=== PATIENT | female | born 1965 | race Caucasian/White ===

== ENCOUNTER 2017-02-24 14:16 | Inpatient (IN) ==
[2017-02-24] MEDS ORDERED: *HR* FentaNYL (PF) 100 MCG/2 ML VIAL IVP ONE (14:43)
[2017-02-24] MEDS ORDERED: Ondansetron 4 MG/2 ML VIAL IVP ONE (14:43)
[2017-02-24] MEDS ORDERED: 0.9 % Sodium Chloride 1,000 ML IVC ONE ×2 (14:43→17:16)
[2017-02-24 15:06] LABS: Basophils % 0.3 %; Eosinophils % 0.2 %; Hematocrit 48.4 % (35.3-44.9); Hemoglobin 16.8 g/dL (11.5-15.4); Immature Granulocytes % 0.2 % (0-4); Lymphocytes # 0.9 K/mcL (0.6-4.6); Mean Corpuscular HGB Conc 34.7 g/dL (31.6-35.5); Mean Corpuscular Hemoglobin 29.5 pg (28.0-33.3); Mean Corpuscular Volume 85.1 fL (83.0-100.0); Mean Platelet Volume 9.3 fL (9.4-12.4); Monocytes # 0.6 K/mcL (0.0-1.3); Monocytes % 10.2 %; Neutrophils # 4.6 K/mcL (1.6-8.9); Platelet Count 340 K/mcL (140-400); Red Blood Count 5.69 M/mcL (3.82-4.97); Red Cell Distribution Width 13.1 % (11.5-14.5); Segmented Neutrophils % 74.1 %
[2017-02-24 15:06] LABS: Bilirubin,Urine Small (Negative); Blood,Urine Negative (Negative); Clarity,Urine Cloudy (Clear); Color,Urine Dark Yellow (Yellow); Glucose,Urine (UA) Normal (Normal); Ketones,Urine 15 mg/dL (Negative); Leukocyte Esterase,Urine Negative (Negative); Nitrite,Urine Negative (Negative); PH,Urine 5.5 pH Units (5.0-8.0); Protein,Urine 30 mg/dL (Neg-Trace); Specific Gravity,Urine 1.024 (1.010-1.025); Urobilinogen,Urine Normal (Normal)
[2017-02-24 15:08] LABS: Bacteria,Urine None Seen per hpf (None-Few); Hyaline Casts,Urine None Seen per lpf (None-Few); Squamous Epithelial Cell,Urine Many per lpf (None-Few); WBC,Urine 0-3 per hpf (0-3)
[2017-02-24 15:19] LABS: Alanine Aminotransferase 6 Units/L (0-55); Albumin 4.3 g/dL (3.5-5.0); Alkaline Phosphatase 86 Units/L (38-126); Aspartate Amino Transferase 13 Units/L (5-34); BUN/Creatinine Ratio 13 (6-26); Bilirubin,Total 1.3 mg/dL (0.2-1.2); Blood Urea Nitrogen 11 mg/dL (7-20); Calcium 10.5 mg/dL (8.6-10.8); Carbon Dioxide 31 mEq/L (19-29); Chloride 93 mEq/L (98-109); Globulin 4.1 g/dL (2.4-3.5); Glucose 117 mg/dL (70-99); Lipase 7 Units/L (8-78); Osmolality,Calculated 286 (280-300); Potassium 3.7 mEq/L (3.5-4.5); Sodium 138 mEq/L (136-145); Total Protein 8.4 g/dL (6.0-8.3); eGFR For African Americans > 60 (> 60); eGFR For Non-African Americans > 60 (> 60)
[2017-02-24 15:32] LABS: Bilirubin,Direct 0.5 mg/dL (0.0-0.5); Bilirubin,Indirect 0.8 mg/dL (0.0-1.2)
--- NOTE | 2017-02-24 16:44 | Emergency Department Note ---
Disposition Clinical Impression: Small bowel obstruction Abdominal pain Qualifiers: Abdominal location: generalized Qualified Code(s): R10.84 - Generalized abdominal pain Disposition: Admitted As Inpatient Condition: Good Time of Disposition: 17:26 Abdominal Pain HPI - General Chief Complaint: ED Abdominal Pain Stated Complaint: Abd Pain N/V Time Seen by Provider: 02/24/17 14:29 Source: patient Mode of arrival: ambulatory Limitations: no limitations Nursing Notes Reviewed: Yes Vital Signs Reviewed: Yes - History of Present Illness HPI Narrative: Patient presents emergency room for repeat evaluation of abdominal pain. She was here 2 days ago and evaluated with CT scan and labs. I Have an Infectious Process in Her Abdomen and Requested to Go Home. Patient Was Offered Admission at That Time but Did Not Want to Stay. Medical Management Was Initiated That Point. Patient Returns Today His Pain Has Been Progressively Getting Worse and Now She Is Having Worsening Nausea and Vomiting. Denied Any Fevers Chills Chest Shows Breath Headache or Vision Change. Pt Subjective Complaint: abdominal pain Onset (ago): day(s) Consistency: constant Location: diffuse Pain Severity: moderate Pain Scale: 4 Quality: cramping, aching Radiation: none Migration to: no migration Improves with: nothing Worsens with: eating, vomiting, movement Associated symptoms: Reports: nausea, vomiting - Related Data Home Medications Medication Instructions Recorded Confirmed Albuterol Sulfate [Ventolin Hfa] 2 puff IH Q4-6H PRN 02/24/17 02/24/17 Alendronate Sodium [Fosamax] 70 mg PO QWEEK 02/24/17 02/24/17 Budesonide/Formoterol 160/4.5 1 puff IH BID 02/24/17 02/24/17 [Symbicort 160/4.5] Calc/D3/Mag/Zn/Shwetha/[place] 1 each PO DAILY 02/24/17 02/24/17 [Calcium 600 mg Plus Vit D Tab] Citalopram Hydrobromide 20 mg PO DAILY 02/24/17 02/24/17 [Citalopram HBr] ClonazePAM [Klonopin] 0.5 mg PO BID 02/24/17 02/24/17 Duloxetine HCl [Cymbalta] 60 mg PO QAM 02/24/17 02/24/17 FLUoxetine HCl [Prozac] 40 mg PO QAM 02/24/17 02/24/17 HydrOXYzine Pamoate [Vistaril] 50 mg PO TID PRN 02/24/17 02/24/17 Tiotropium [Spiriva] 18 mcg IH 0700 02/24/17 02/24/17 Trazodone HCl 50 - 100 mg PO HS 02/24/17 02/24/17 Previous Rx's Medication Instructions Recorded HYDROcodone/Acet 5/325 mg [[place] 1 tab PO Q4H PRN #10 tab 02/22/17 5-325 mg] Ondansetron ODT [Zofran ODT] 4 mg SL Q6HR #20 tab.rapdis 02/22/17 Allergies Allergy/AdvReac Type Severity Reaction Status Date / Time codeine Allergy Rash Verified 02/24/17 14:22 Penicillins Allergy Rash Verified 02/24/17 14:22 tramadol [From Ultram] AdvReac See Verified 02/24/17 14:22 Comments All systems ED: reviewed and negative except as stated. Constitutional: Denies: fever, chills Cardiovascular: Denies: chest pain, palpitations, dyspnea on exertion Respiratory: Denies: dyspnea, wheezes, hemoptysis Gastrointestinal: Reports: abdominal pain, nausea, vomiting. Denies: diarrhea, constipation Genitourinary: Denies: dysuria, frequency Musculoskeletal: Denies: back pain, neck pain Abdominal Pain PMH - Past Medical History Medical history: Reports: no medical history, COPD, osteoporosis Female Surgical History: Reports: Psychiatric history: Reports: anxiety, depression - Social History Smoking status: Current every day smoker Alcohol use: Reports: none Drug use: Reports: none Physical Exam - General Limitations: no limitations General appearance: alert, in no apparent distress - Chest Chest inspection: Present: normal inspection, symmetric chest wall rise - Respiratory Respiratory exam: Present: normal lung sounds bilaterally - Cardiovascular Cardiovascular exam: Present: regular rate, normal rhythm, normal heart sounds - Abdominal Exam Abdominal exam: Present: soft, tenderness (Patient has diffuse abdominal discomfort. No guarding no rigidity no peritoneal symptoms at this time. Bowel sounds are diminished), normal bowel sounds. Absent: Non-Tender, distention, guarding, rebound, rigidity, Wang's sign, Rovsing's sign, tenderness at McBurney's Point - Extremities Exam Extremities exam: Present: normal inspection, full ROM, normal capillary refill - Back Exam Back exam: Present: normal inspection, full ROM. Absent: tenderness - Neurological Exam Neurological exam: Present: alert, oriented X3, CN II-XII intact, normal gait - Psychiatric Psychiatric exam: Present: normal affect, normal mood - Skin Skin exam: Present: warm, dry, intact, normal color Course Course Narrative: Patient seen and examined the time of arrival. See history of present illness. 51-year-old female presents 2 days after being evaluated here in the emergency room and told that she has enteritis in the distal colon as well as ileus. Patient requested to go home that day. She is advised that she could decompensate. Patient found today to have progressively worsening abdominal pain with emesis. Patient's abdomen is not rigid no peritoneal symptoms no guarding no rigidity. She has bowel sounds present but diminished. She has diffuse tenderness across the entire abdominal wall. Lungs are clear heart is regular. Patient is concerning for progression into the small bowel instruction. Plain KUB and basic laboratory workup all fluids and nausea medication pain control lactic acid order this time. Patient will have symptoms controlled next packed admitted for definitive management. IV Zosyn ordered at this time for antibiotic regimen secondary to intra-abdominal pathology. One-time dose to be given here in the ED. Disposition pending imaging treatment course. - Reevaluation(s) Reevaluation #1: Patient seen and examined the time of arrival. See history of present illness. 51-year-old female presents to the emergency room for second evaluation of abdominal pain. She is here [address] imaging and labs performed. That workup at that time was concerning for significant enterocolitis of the distal colon as well as possible ileus patient has had persistent nausea vomiting and dark colored emesis at this time. The pain has gotten worse. Physical exam is benign. Abdomen is diffusely tender but no guarding no rigidity bowel sounds are diminished. Lungs are clear heart is regular. Patient is concerning for progression into small bowel obstruction. Patient have repeat labs and KUB were ordered initially. Pain medication given. Patient is stable. We will continue to monitor lactic acid and LFTs also order this time. Disposition pending treatment course and evaluation. Patient found to have small bowel infection based on repeat imaging and CT scan. The dilation of the abdomen is persistently worsening. NG tube ordered protonic. Nothing by mouth status established. Patient will be admitted to the hospitalist at this time for definitive management of small bowel obstruction detailed review and consultation was placed to the hospitalist. Dr. gentile and I reviewed the case in detail. He had no other recommendations at this time. Cipro Flagyl be added on for prophylactic antibiotic regimen. Patient is resting comfortable. Disposition admission to hospital this point. Time: 17:25 Vital Signs Temperature 98.1 F 02/24/17 14:22 Pulse Rate 123 02/24/17 14:22 Respiratory Rate 15 02/24/17 14:22 Blood Pressure 111/81 02/24/17 14:22 O2 Sat by Pulse Oximetry 96 02/24/17 14:22 Temperature 98.1 F 02/24/17 14:22 Pulse Rate 85 02/24/17 17:30 Respiratory Rate 16 02/24/17 17:58 Blood Pressure 135/88 02/24/17 17:58 O2 Sat by Pulse Oximetry 97 02/24/17 17:30 Oxygen Delivery Oxygen Delivery Room Air Abdominal Pain - MDM Narrative Medical decision making narrative: sMall bowel obstruction, abdominal pain - Medical Records Medical records reviewed: Yes I reviewed the patient's medical records. - Lab Data Lab results reviewed: Yes I reviewed the patient's lab results. Result diagrams: 02/24/17 14:54 02/24/17 14:54 Lab Results 02/24/17 02/24/17 02/24/17 Range/Units 14:45 14:54 14:54 WBC 6.2 (4.3-11.1) K/mcL RBC 5.69 H (3.82-4.97) M/mcL Hgb 16.8 H (11.5-15.4) g/dL Hct 48.4 H (35.3-44.9) % MCV 85.1 (83.0-100.0) fL MCH 29.5 (28.0-33.3) pg MCHC 34.7 (31.6-35.5) g/dL RDW 13.1 (11.5-14.5) % Plt Count 340 (140-400) K/mcL MPV 9.3 L (9.4-12.4) fL Immature Gran % 0.2 (0-4) % Seg Neutrophils % 74.1 % Lymphocytes % 15.0 % Monocytes % 10.2 % Eosinophils % 0.2 % Basophils % 0.3 % Neutrophils # 4.6 (1.6-8.9) K/mcL Lymphocytes # 0.9 (0.6-4.6) K/mcL Monocytes # 0.6 (0.0-1.3) K/mcL Eosinophils # 0.0 (0.0-0.6) K/mcL Basophils # 0.0 (0.0-0.2) K/mcL Sodium 138 (136-145) mEq/L Potassium 3.7 (3.5-4.5) mEq/L Chloride 93 L (98-109) mEq/L Carbon Dioxide 31 H (19-29) mEq/L BUN 11 (7-20) mg/dL Creatinine 0.87 (0.57-1.11) mg/dL Est GFR ( Amer) > 60 (> 60) Est GFR (Non-Af Amer) > 60 (> 60) BUN/Creatinine Ratio 13 (6-26) Glucose 117 H (70-99) mg/dL Calculated Osmolality 286 (280-300) Lactic Acid (0.5-2.2) mmol/L Calcium 10.5 (8.6-10.8) mg/dL Total Bilirubin 1.3 H (0.2-1.2) mg/dL Direct Bilirubin 0.5 (0.0-0.5) mg/dL Indirect Bilirubin 0.8 (0.0-1.2) mg/dL AST 13 (5-34) Units/L ALT 6 (0-55) Units/L Alkaline Phosphatase 86 (38-126) Units/L Serum Total Protein 8.4 H (6.0-8.3) g/dL Albumin 4.3 (3.5-5.0) g/dL Globulin 4.1 H (2.4-3.5) g/dL Albumin/Globulin Ratio 1.0 L (1.1-2.2) Lipase 7 L (8-78) Units/L Urine Color Dark Yellow (Yellow) Urine Clarity Cloudy A (Clear) Urine pH 5.5 (5.0-8.0) pH Units Ur Specific [place] 1.024 (1.010-1.025) Urine Protein 30 H (Neg-Trace) mg/dL Urine Glucose (UA) Normal (Normal) mg/dL Urine Ketones 15 H (Negative) mg/dL Urine Blood Negative (Negative) Urine Nitrite Negative (Negative) Urine Bilirubin Small H (Negative) Urine Urobilinogen Normal (Normal) mg/dL Ur Leukocyte Esterase Negative (Negative) Urine Microscopic RBC 3-5 H (0-3) per hpf Urine Microscopic WBC 0-3 (0-3) per hpf Ur Squamous Epith Cells Many H (None-Few) per lpf Urine Bacteria None Seen (None-Few) per hpf Hyaline Casts None Seen (None-Few) per lpf Ur Culture Indicated? NO (NO) 02/24/17 Range/Units 15:48 WBC (4.3-11.1) K/mcL RBC (3.82-4.97) M/mcL Hgb (11.5-15.4) g/dL Hct (35.3-44.9) % MCV (83.0-100.0) fL MCH (28.0-33.3) pg MCHC (31.6-35.5) g/dL RDW (11.5-14.5) % Plt Count (140-400) K/mcL MPV (9.4-12.4) fL Immature Gran % (0-4) % Seg Neutrophils % % Lymphocytes % % Monocytes % % Eosinophils % % Basophils % % Neutrophils # (1.6-8.9) K/mcL Lymphocytes # (0.6-4.6) K/mcL Monocytes # (0.0-1.3) K/mcL Eosinophils # (0.0-0.6) K/mcL Basophils # (0.0-0.2) K/mcL Sodium (136-145) mEq/L Potassium (3.5-4.5) mEq/L Chloride (98-109) mEq/L Carbon Dioxide (19-29) mEq/L BUN (7-20) mg/dL Creatinine (0.57-1.11) mg/dL Est GFR ( Amer) (> 60) Est GFR (Non-Af Amer) (> 60) BUN/Creatinine Ratio (6-26) Glucose (70-99) mg/dL Calculated Osmolality (280-300) Lactic Acid 1.2 (0.5-2.2) mmol/L Calcium (8.6-10.8) mg/dL Total Bilirubin (0.2-1.2) mg/dL Direct Bilirubin (0.0-0.5) mg/dL Indirect Bilirubin (0.0-1.2) mg/dL AST (5-34) Units/L ALT (0-55) Units/L Alkaline Phosphatase (38-126) Units/L Serum Total Protein (6.0-8.3) g/dL Albumin (3.5-5.0) g/dL Globulin (2.4-3.5) g/dL Albumin/Globulin Ratio (1.1-2.2) Lipase (8-78) Units/L Urine Color (Yellow) Urine Clarity (Clear) Urine pH (5.0-8.0) pH Units Ur Specific [place] (1.010-1.025) Urine Protein (Neg-Trace) mg/dL Urine Glucose (UA) (Normal) mg/dL Urine Ketones (Negative) mg/dL Urine Blood (Negative) Urine Nitrite (Negative) Urine Bilirubin (Negative) Urine Urobilinogen (Normal) mg/dL Ur Leukocyte Esterase (Negative) Urine Microscopic RBC (0-3) per hpf Urine Microscopic WBC (0-3) per hpf Ur Squamous Epith Cells (None-Few) per lpf Urine Bacteria (None-Few) per hpf Hyaline Casts (None-Few) per lpf Ur Culture Indicated? (NO) - Radiology Data Radiology results reviewed: Yes I reviewed the patient's radiology results. CT redemonstrates progression of small bowel obstruction Attestation Statement - Attestation Attestation: I examined this patient and my medical decision-making was reviewed with the [employer] ATTENDANT/PA/Advanced Practice Nurse/Resident Physician. I agree with the documented findings, disposition and treatment plan as described except to the extent set forth below. Patient to the emergency department with a chief complaint of abdominal pain and vomiting. Patient was seen Wednesday for the same. Well home and started vomiting more. States it is Brown. No diarrhea. Pain is worsened. On examination she is uncomfortable but in no distress. Diffuse upper abdominal tenderness. Plan. The patient had labs which were unremarkable. KUB showed a nonspecific bowel gas pattern. We were concerned with her symptoms worsening so did order repeat CT scan which now shows a small bowel obstruction. She is admitted to medicine.
[2017-02-24] MEDS ORDERED: Pantoprazole 80 MG in 0.9 % Sodium Chloride 50 ML IVPB ONE (16:50)
[2017-02-24] MEDS ORDERED: MetroNIDAZOLE 500 MG/100 ML 500 MG/100 ML BAG IVPB ONE ×2 (17:27→22:00)
[2017-02-24] MEDS ORDERED: Naloxone 0.4 MG/ML INJ IVP PRN (21:40)
[2017-02-24] MEDS ORDERED: Acetaminophen 325 MG TABLET PO PRN (21:40)
[2017-02-24] MEDS ORDERED: hydrOXYzine pamoate 25 MG CAPSULE PO PRN (21:45)
--- NOTE | 2017-02-24 21:49 | Internal Med History&Physical ---
Date of Encounter: 02/24/17 Time of Encounter: 21:00 Assessment and Plan (1) Small bowel obstruction Current visit: Yes Status: Acute - With worsening abdominal pain, nausea and vomiting requiring hospitalization for advanced evaluation and management. - CT A/P on 02/24 suggests distal small bowel obstruction. - Likely partial SBO given patient just had a normal bowel movement prior to ED visit today. - History of hernia repair by Dr. Bella 3 years ao. - Continue NPO and NG tube with suction. - Patient had received one dose of IV clindamycin and metronidazole. Given no sign of infection such as leukocytosis or fever, will discontinue for now. - Surgery consulted and the case had been discussed with Dr. Dugan. Appreciate surgery evaluation and recommendations. - Continue to monitor. (2) Abdominal pain Current visit: Yes Status: Acute - Diffuse intermittent sharp abdominal pain. - Most likely secondary to current small bowel obstruction. - Continue NPO and NG tube with suction. - Pain control with prn pain medications. Qualifiers: Abdominal location: generalized Qualified Code(s): R10.84 - Generalized abdominal pain (3) COPD (chronic obstructive pulmonary disease) Current visit: Yes Status: Chronic - Continue Symbicort and bronchodilators prn. Qualifiers: COPD type: unspecified COPD Qualified Code(s): J44.9 - Chronic obstructive pulmonary disease, unspecified (4) Anxiety and depression Current visit: Yes Status: Chronic - Continue home dose psychiatric medications regimen. (5) Tobacco abuse Current visit: Yes Status: Acute - Active smoker with 1-2 packs per day. - Will give nicotine patch during her hospital stay. (6) DVT prophylaxis Current visit: Yes Status: Acute - SQ heparin. Internal Medicine - H&P: HPI Chief complaint: Worsening abdominal pain with nausea/vomiting. Admitted From: Emergency Dept Plans for Post Hospital Care: Home History of present illness: Ms. العراقي is a 51 year old female with PMH of COPD, osteoporosis, anxiety/ depression and history of hernia repair (by Dr. Bella 3 years ago). Patient presented to [facility] ED with worsening abdominal pain with nausea/vomiting. The abdominal pain is acute new onset since 1 pm on 02/22. Patient describes it as intermittent diffuse sharp abdominal pain radiating to back. It's aggravated by moving and alleviated by pain medications but patient is not sure if eating will make it worse since she had poor appetite since. Patient initially presented to [facility] ED on 02/[address] A/P suggests severe enteritis of the distal small bowel at that time. Per ED note, patient was recommended to be admitted but she opted to go home. Patient's abdominal pain continues to get worse and she developed nausea and vomiting with dark-colored emesis. Patient came back to ED today, CT A/P suggests distal small bowel obstruction and NG tube was placed in ED with dark-colored emesis noted on suction. Patient denies fever, chills, chest pain, shortness of breath, dysphagia, diarrhea, hematochezia, melena, hematuria, dysuria. Patient reports having a bowel movement right before coming to ED today and it's loosen and brown which are her baseline. Patient is full code. Past Med Surg Social Fam HX - Past Medical History Medical history: COPD, osteoporosis Psychiatric history: anxiety, depression - Past Surgical History Surgical History: herniorrhaphy - Social History Smoking Status: Current every day smoker Packs per day: 2 packs per day. Smokeless Tobacco Status: No Alcohol use: none Drug use: none Internal Medicine - H&P: Meds HYDROcodone/Acet 5/325 mg [[place] 5-325 mg] 1 tab PO Q4H PRN #10 tab 02/22/17 [Rx ] Ondansetron ODT [Zofran ODT] 4 mg SL Q6HR #20 tab.rapdis 02/22/17 [Rx] Albuterol Sulfate [Ventolin Hfa] 2 puff IH Q4-6H PRN 02/24/17 [History] Alendronate Sodium [Fosamax] 70 mg PO QWEEK 02/24/17 [History] Budesonide/Formoterol 160/4.5 [Symbicort 160/4.5] 1 puff IH BID 02/24/17 [ History] Calc/D3/Mag/Zn/[place]eth[place] [Calcium 600 mg Plus Vit D Tab] 1 each PO DAILY 02/24/17 [History] Citalopram Hydrobromide [Citalopram HBr] 20 mg PO DAILY 02/24/17 [History] ClonazePAM [Klonopin] 0.5 mg PO BID 02/24/17 [History] Duloxetine HCl [Cymbalta] 60 mg PO QAM 02/24/17 [History] FLUoxetine HCl [Prozac] 40 mg PO QAM 02/24/17 [History] HydrOXYzine Pamoate [Vistaril] 50 mg PO TID PRN 02/24/17 [History] Tiotropium [Spiriva] 18 mcg IH 0700 02/24/17 [History] Trazodone HCl 50 - 100 mg PO HS 02/24/17 [History] Allergies codeine Allergy (Verified 02/24/17 14:22) Rash Penicillins Allergy (Verified 02/24/17 14:22) Rash tramadol [From Ultram] Adverse Reaction (Verified 02/24/17 14:22) See Comments All Systems PM: A 10-system review of systems was performed and is negative for pertinent findings except as documented above in the HPI. - Constitutional Constitutional: anorexia, no chills, no fever(s), no weight gain, no weight loss - EENT Eyes: no change in vision Ears: no decreased hearing Nose, mouth and throat: no dysphagia, no odynophagia - Cardiovascular Cardiovascular ROS IM: no chest pain, no diaphoresis, no edema, no lightheadedness, no palpitations, no syncope - Respiratory Respiratory: no cough, no dyspnea, no hemoptysis - Gastrointestinal Gastrointestinal: as per HPI, abdominal pain (Diffuse), loose stools, nausea, vomiting, no diarrhea, no hematochezia, no melena - Genitourinary Genitourinary: no dysuria, no hematuria - Integumentary Integumentary IM: no pruritus, no rash - Neurological Neurological ROS: no focal weakness, no numbness, no tingling - Hematologic/Lymphatic Hematologic/Lymphatic: no easy bleeding, no easy bruising - Constitutional Vitals: Temp Pulse Resp BP Pulse Ox 97.5 F L 95 16 137/81 95 02/24/17 18:58 02/24/17 18:58 02/24/17 18:58 02/24/17 18:58 02/24/17 18:58 General appearance: Present: cooperative, A&O X 3, no acute distress, answers questions appropriately - Head Head exam: Present: atraumatic, normocephalic - Eye Eye exam: Present: EOMI, PERRL, conjuntiva pink, sclera anicteric - Neck Neck exam general surgery: Present: supple, trachea midline. Absent: lymphadenopathy - Respiratory Respiratory exam: Present: decreased breath sounds. Absent: accessory muscle use, rales, rhonchi, wheezes - Cardiovascular Cardiovascular exam: Present: +S1, +S2, tachycardia. Absent: diastolic murmur, gallop, rubs, systolic murmur - GI/Abdominal GI/Abdominal exam: Present: normal bowel sounds, soft, tenderness (Diffuse), no peritoneal signs. Absent: distended - Extremities Exam Extremities exam: Present: warm, radial pulses palpable and symetrical. Absent : calf tenderness, cyanotic, pedal edema - Neurological Exam Neurological exam: Present: CN II-XII intact, oriented X3, no focal deficits. Absent: pronater drift, facial droop, speech deficit - Skin Skin exam: Present: dry, intact, warm Internal Med - H&P Results - Labs CBC & Chem 7: 02/24/17 14:54 02/24/17 14:54 Labs: Short CBC 02/24/17 Range/Units 14:54 WBC 6.2 (4.3-11.1) K/mcL Hgb 16.8 H (11.5-15.4) g/dL Hct 48.4 H (35.3-44.9) % Plt Count 340 (140-400) K/mcL Neutrophils # 4.6 (1.6-8.9) K/mcL BMP 02/24/17 Range/Units 14:54 Sodium 138 (136-145) mEq/L Potassium 3.7 (3.5-4.5) mEq/L Chloride 93 L (98-109) mEq/L Carbon Dioxide 31 H (19-29) mEq/L BUN 11 (7-20) mg/dL Creatinine 0.87 (0.57-1.11) mg/dL Glucose 117 H (70-99) mg/dL Calcium 10.5 (8.6-10.8) mg/dL Liver Function 02/24/17 Range/Units 14:54 Total Bilirubin 1.3 H (0.2-1.2) mg/dL Direct Bilirubin 0.5 (0.0-0.5) mg/dL AST 13 (5-34) Units/L ALT 6 (0-55) Units/L Alkaline Phosphatase 86 (38-126) Units/L Albumin 4.3 (3.5-5.0) g/dL Urine 02/24/17 Range/Units 14:45 Urine Color Dark Yellow (Yellow) Urine Clarity Cloudy A (Clear) Urine pH 5.5 (5.0-8.0) pH Units Ur Specific [place] 1.024 (1.010-1.025) Urine Protein 30 H (Neg-Trace) mg/dL Urine Glucose (UA) Normal (Normal) mg/dL - Impressions Impressions KUB X-Ray 02/24/17 15:03 IMPRESSION: Interstitial infiltrate at the left lung base. No radiographic evidence for obstruction D/ / Yaniv Conde MD / Yaniv Conde MD Interpreting Provider: Yaniv Conde MD Abdomen/Pelvis CT 02/24/17 16:15 IMPRESSION: 1. Grossly dilated small bowel loops seen throughout the abdomen. The colon is decompressed. No normal caliber small bowel loops are definitely seen. Findings suggest a distal small bowel obstruction D/ / 02/24/2017 16:48:44 Shay Parrish MD / rica Interpreting Provider: Shay Parrish MD
[2017-02-24] MEDS: *HR* Morphine 2 MG/ML SYRINGE IVP PRN (22:10)
[2017-02-24] MEDS ORDERED: Ipratropium/Albuterol Neb 3 ML IH PRN (22:45)
[2017-02-24] MEDS: Nicotine 21 MG PATCH.TD24 TD SCH (23:32)
[2017-02-25] MEDS: *HR* Morphine 2 MG/ML SYRINGE IVP PRN ×3 (03:10→20:26)
[2017-02-25] MEDS: Ondansetron 4 MG/2 ML VIAL IVP PRN ×3 (03:10→20:38)
[2017-02-25 04:55] LABS: Basophils % 0.3 %; Eosinophils % 0.3 %; Hematocrit 39.8 % (35.3-44.9); Immature Granulocytes % 0.3 % (0-4); Lymphocytes # 0.7 K/mcL (0.6-4.6); Lymphocytes % 10.5 %; Mean Corpuscular HGB Conc 34.2 g/dL (31.6-35.5); Mean Corpuscular Hemoglobin 29.6 pg (28.0-33.3); Mean Corpuscular Volume 86.5 fL (83.0-100.0); Mean Platelet Volume 9.6 fL (9.4-12.4); Monocytes # 0.9 K/mcL (0.0-1.3); Monocytes % 12.5 %; Neutrophils # 5.3 K/mcL (1.6-8.9); Platelet Count 269 K/mcL (140-400); Red Cell Distribution Width 13.2 % (11.5-14.5); Segmented Neutrophils % 76.1 %
[2017-02-25 05:01] LABS: Hemoglobin 13.6 g/dL (11.5-15.4)
[2017-02-25 05:23] LABS: Albumin 3.5 g/dL (3.5-5.0); Albumin/Globulin Ratio 1.1 (1.1-2.2); Alkaline Phosphatase 68 Units/L (38-126); Aspartate Amino Transferase 11 Units/L (5-34); BUN/Creatinine Ratio 16 (6-26); Bilirubin,Total 0.8 mg/dL (0.2-1.2); Blood Urea Nitrogen 12 mg/dL (7-20); Calcium 9.2 mg/dL (8.6-10.8); Carbon Dioxide 26 mEq/L (19-29); Chloride 100 mEq/L (98-109); Globulin 3.3 g/dL (2.4-3.5); Glucose 105 mg/dL (70-99); Magnesium 2.1 mg/dL (1.6-2.6); Osmolality,Calculated 286 (280-300); Phosphorous 3.4 mg/dL (2.3-4.7); Potassium 3.4 mEq/L (3.5-4.5); Sodium 138 mEq/L (136-145); Total Protein 6.8 g/dL (6.0-8.3); eGFR For African Americans > 60 (> 60); eGFR For Non-African Americans > 60 (> 60)
[2017-02-25 05:30] LABS: Alanine Aminotransferase < 6 Units/L (0-55)
[2017-02-25] MEDS: *HR* Heparin 5,000 UNIT/ML VIAL SQ SCH ×2 (06:27→18:06)
[2017-02-25] MEDS: Pantoprazole 40 MG VIAL IVP SCH (06:27)
[2017-02-25 06:35] LABS: Platelet Estimate Normal (Normal)
[2017-02-25] MEDS: Budesonide/Formoterol 160/4.5 MDI IH SCH ×2 (08:02→22:18)
[2017-02-25] MEDS: FLUoxetine 20 MG CAPSULE PO SCH (08:41)
[2017-02-25] MEDS: D5% in 0.45% NACL 1,000 ML IVC SCH ×2 (08:58→22:22)
[2017-02-25] MEDS: Nicotine 21 MG PATCH.TD24 TD SCH (08:59)
[2017-02-25] MEDS ORDERED: Potassium Chloride 20 MEQ, Lidocaine 1% 2 ML in D5% in Water 250 ML IVPB ONE (09:03)
--- NOTE | 2017-02-25 11:54 | Internal Med Progress Note ---
Date of Encounter: 02/25/17 Time of Encounter: 11:45 - Assessment and plan (1) Small bowel obstruction Current Visit: Yes Status: Acute Assessment and plan: Patient presented with persistent vomiting and abdominal pain. CT abdomen shows partial distal small bowel obstruction. Continue conservative medical management with nasogastric tube to low intermittent wall suction and IV hydration. Keep nothing by mouth for now. Pain control with when necessary IV morphine. Supportive care. Surgery consult appreciated. (2) Tobacco abuse Current Visit: Yes Status: Chronic Assessment and plan: Continue nicotine transdermal patch. (3) COPD (chronic obstructive pulmonary disease) Current Visit: Yes Status: Chronic Assessment and plan: Not noted to be in acute exacerbation. Continue when necessary bronchodilators and supplemental oxygen. Qualifiers: COPD type: unspecified COPD Qualified Code(s): J44.9 - Chronic obstructive pulmonary disease, unspecified (4) Anxiety and depression Current Visit: Yes Status: Chronic - Subjective Interval history: Improved abdominal pain; resolved vomiting since receiving NG tube; no dyspnea, palpitations; last bowel movement yesterday; - Constitutional Vitals: Temp Pulse Resp BP Pulse Ox 98.3 F 98 13 121/64 90 02/25/17 10:12 02/25/17 10:12 02/25/17 10:12 02/25/17 10:12 02/25/17 10:12 General appearance: Present: cachectic, A&O X 3, answers questions appropriately - Respiratory Respiratory exam: Present: CTAB. Absent: accessory muscle use, rales, rhonchi, wheezes - Cardiovascular Cardiovascular exam: Present: RRR, +S1, +S2. Absent: diastolic murmur, gallop, rubs, systolic murmur - GI/Abdominal GI/Abdominal exam: Present: diminished bowel sounds, soft, no peritoneal signs. Absent: distended, tenderness - Extremities Exam Extremities exam: Present: full ROM, warm, radial pulses palpable and symetrical. Absent: calf tenderness, cyanotic, pedal edema - Neurological Exam Neurological exam: Present: CN II-XII intact, oriented X3, no focal deficits. Absent: pronater drift, facial droop, speech deficit Internal Medicine: Result - Labs CBC & Chem 7: 02/25/17 04:06 02/25/17 04:06 Labs: Short CBC 02/25/17 Range/Units 04:06 WBC 7.0 (4.3-11.1) K/mcL Hgb 13.6 D (11.5-15.4) g/dL Hct 39.8 (35.3-44.9) % Plt Count 269 (140-400) K/mcL Neutrophils # 5.3 (1.6-8.9) K/mcL BMP 02/25/17 04:06 Sodium 138 Potassium 3.4 L Chloride 100 Carbon Dioxide 26 BUN 12 Creatinine 0.76 Glucose 105 H Calcium 9.2 Liver Function 02/25/17 Range/Units 04:06 Total Bilirubin 0.8 (0.2-1.2) mg/dL AST 11 (5-34) Units/L ALT < 6 (0-55) Units/L Alkaline Phosphatase 68 (38-126) Units/L Albumin 3.5 (3.5-5.0) g/dL Consult Discharge Plan - Plan Referrals: Rosario Bradshaw MD [Primary Care Provider] -
--- NOTE | 2017-02-25 16:10 | General Surgery Consult Note ---
Date of Encounter: 02/25/17 Time of Encounter: 15:45 Assessment and Plan (1) Partial small bowel obstruction Current Visit: Yes Status: Acute Continue with conservative measures: NPO NG tube to LIWS IV fluids Supportive care/pain control Serial abdominal exams IS every 1 hour while awake Consider SBFT in the next 24-48 hours Will continue to follow and assess progress History of Present Illness Consult date: 02/24/17 Reason for consult: other (PSBO) Requesting physician: Jeanna Rsoe History of present illness: Mrs. العراقي is a 51 year old female who presented to the ED with complaints of central abdominal pain with associated nausea/vomiting. She reports acute onset of symptoms starting on 02/22/17 and she reported to the ED at that time. It was recommended that the patient stay for treatment at that time for enteritis with PSBO. The patient decided to go home. She reported back to the ED yesterday with continued complaints of abdominal pain with nausea/vomiting. The pain is located around her central abdomen and it waxes and waines. Admits to having a normal bowel movement yesterday prior to coming to the ED. Reports abdominal bloating. Denies any melena or hematochezia. Reports multiple episodes of nausea and vomiting. She denies any chest pains or shortness of breath. Denies any fevers or chills. Denies any difficulty with urination. She reports symptoms similar to this 3 years ago and states that she did undergo a hernia repair with Dr. Bella at that time. Past Med Surg Social Fam HX - Past Medical History Source: patient, old records reviewed Medical history: COPD, osteoporosis Psychiatric history: anxiety, depression - Past Surgical History Surgical History: herniorrhaphy - Social History Smoking Status: Current every day smoker Packs per day: 2 packs per day. Smokeless Tobacco Status: No Alcohol use: none Drug use: none Current living situation: Home - Independent Activity Level: Independent ambulation Medications and Allergies HYDROcodone/Acet 5/325 mg [[place] 5-325 mg] 1 tab PO Q4H PRN #10 tab 02/22/17 [Rx ] Ondansetron ODT [Zofran ODT] 4 mg SL Q6HR #20 tab.rapdis 02/22/17 [Rx] Albuterol Sulfate [Ventolin Hfa] 2 puff IH Q4-6H PRN 02/24/17 [History] Alendronate Sodium [Fosamax] 70 mg PO QWEEK 02/24/17 [History] Budesonide/Formoterol 160/4.5 [Symbicort 160/4.5] 1 puff IH BID 02/24/17 [ History] Calc/D3/Mag/Zn/Shwetha/[place] [Calcium 600 mg Plus Vit D Tab] 1 each PO DAILY 02/24/17 [History] Citalopram Hydrobromide [Citalopram HBr] 20 mg PO DAILY 02/24/17 [History] ClonazePAM [Klonopin] 0.5 mg PO BID 02/24/17 [History] Duloxetine HCl [Cymbalta] 60 mg PO QAM 02/24/17 [History] FLUoxetine HCl [Prozac] 40 mg PO QAM 02/24/17 [History] HydrOXYzine Pamoate [Vistaril] 50 mg PO TID PRN 02/24/17 [History] Tiotropium [Spiriva] 18 mcg IH 0700 02/24/17 [History] Trazodone HCl 50 - 100 mg PO HS 02/24/17 [History] Allergies codeine Allergy (Verified 02/24/17 14:22) Rash Penicillins Allergy (Verified 02/24/17 14:22) Rash tramadol [From Ultra] Adverse Reaction (Verified 02/24/17 14:22) See Comments Review of Systems All systems PM: reviewed and no additional remarkable complaints except as stated (in the HPI) All systems PM: A 10-system review of systems was performed and is negative for pertinent findings except as documented above in the HPI. General Surgery Exam Initial Vital Signs Temp Pulse Resp BP Pulse Ox 98.1 F 123 15 111/81 96 02/24/17 14:22 02/24/17 14:22 02/24/17 14:22 02/24/17 14:22 02/24/17 14:22 - General physical appearance well developed, well nourished, no distress - Eyes normal ocular movement - ENT normal mucosa, atraumatic, normocephalic - Neck trachea midline - Respiratory normal respiratory effort, clear to auscultation - Cardiovascular Cardiovascular exam: Present: RRR - Abdomen Abdomen general surgery: Present: bowel sounds present, soft, distended, tender (generalized and mild) - Integumentary Integumentary general surgery: Present: warm and dry - Neurologic Present: CN 2-12 grossly intact, normal coordination, normal sensation - Musculoskeletal Present: normal posture - Psychiatric Psychiatric general surgery: Present: appropriate, oriented to person, oriented to place, oriented to time, speech is normal, memory intact Exam Initial Vital Signs Temp Pulse Resp BP Pulse Ox 98.1 F 123 15 111/81 96 02/24/17 14:22 02/24/17 14:22 02/24/17 14:22 02/24/17 14:22 02/24/17 14:22 Results - Labs 02/25/17 04:06 02/25/17 04:06 Abnormal lab results Potassium 3.4 mEq/L (3.5-4.5) L 02/25/17 04:06 Glucose 105 mg/dL (70-99) H 02/25/17 04:06 POC Glucose 159 (58-89) H 02/25/17 11:25 Lipase 7 Units/L (8-78) L 02/24/17 14:54 Urine Clarity Cloudy (Clear) A 02/24/17 14:45 Urine Protein 30 mg/dL (Neg-Trace) H 02/24/17 14:45 Urine Ketones 15 mg/dL (Negative) H 02/24/17 14:45 Urine Bilirubin Small (Negative) H 02/24/17 14:45 Urine Microscopic RBC 3-5 per hpf (0-3) H 02/24/17 14:45 Ur Squamous Epith Cells Many per lpf (None-Few) H 02/24/17 14:45 Diabetes panel 02/25/17 Range/Units 04:06 Sodium 138 (136-145) mEq/L Potassium 3.4 L (3.5-4.5) mEq/L Chloride 100 (98-109) mEq/L Carbon Dioxide 26 (19-29) mEq/L BUN 12 (7-20) mg/dL Creatinine 0.76 (0.57-1.11) mg/dL Glucose 105 H (70-99) mg/dL Calcium 9.2 (8.6-10.8) mg/dL AST 11 (5-34) Units/L ALT < 6 (0-55) Units/L Alkaline Phosphatase 68 (38-126) Units/L Albumin 3.5 (3.5-5.0) g/dL Calcium panel 02/25/17 Range/Units 04:06 Calcium 9.2 (8.6-10.8) mg/dL Phosphorus 3.4 (2.3-4.7) mg/dL Albumin 3.5 (3.5-5.0) g/dL Pituitary panel 02/25/17 Range/Units 04:06 Sodium 138 (136-145) mEq/L Potassium 3.4 L (3.5-4.5) mEq/L Chloride 100 (98-109) mEq/L Carbon Dioxide 26 (19-29) mEq/L BUN 12 (7-20) mg/dL Creatinine 0.76 (0.57-1.11) mg/dL Glucose 105 H (70-99) mg/dL Calcium 9.2 (8.6-10.8) mg/dL Adrenal panel 02/25/17 Range/Units 04:06 Sodium 138 (136-145) mEq/L Potassium 3.4 L (3.5-4.5) mEq/L Chloride 100 (98-109) mEq/L Carbon Dioxide 26 (19-29) mEq/L BUN 12 (7-20) mg/dL Creatinine 0.76 (0.57-1.11) mg/dL Glucose 105 H (70-99) mg/dL Calcium 9.2 (8.6-10.8) mg/dL Total Bilirubin 0.8 (0.2-1.2) mg/dL AST 11 (5-34) Units/L ALT < 6 (0-55) Units/L Alkaline Phosphatase 68 (38-126) Units/L Albumin 3.5 (3.5-5.0) g/dL All other labs normal. - Imaging CT scan - abdomen: report reviewed CT scan - pelvis: report reviewed Additional studies: KUB X-Ray 02/24/17 15:03 IMPRESSION: Interstitial infiltrate at the left lung base. No radiographic evidence for obstruction D/ / Yaniv Conde MD / Yaniv Conde MD Interpreting Provider: Yaniv Conde MD Abdomen/Pelvis CT 02/24/17 16:15 IMPRESSION: 1. Grossly dilated small bowel loops seen throughout the abdomen. The colon is decompressed. No normal caliber small bowel loops are definitely seen. Findings suggest a distal small bowel obstruction D/ / 02/24/2017 16:48:44 Shay Parrish MD / rica Interpreting Provider: Shay Parrish MD Consult Discharge Plan - Plan Referrals: Rosario Bradshaw MD [Primary Care Provider] - - Attending Attestation I examined this patient and my medical decision-making was reviewed with the ICE CREAM TRUCK DRIVER/PA/Advanced Practice Nurse/Resident Physician. I agree with the documented findings, disposition and treatment plan as described except to the extent set forth below.
[2017-02-25] MEDS: *HR* Promethazine 25 MG/ML VIAL IVP PRN (17:45)
[2017-02-25] MEDS: traZODone 50 MG TABLET PO SCH (19:57)
[2017-02-26] MEDS: *HR* Morphine 2 MG/ML SYRINGE IVP PRN ×6 (00:41→22:15)
[2017-02-26] MEDS: *HR* Promethazine 25 MG/ML VIAL IVP PRN ×4 (01:01→23:55)
[2017-02-26 04:22] LABS: BUN/Creatinine Ratio 11 (6-26); Blood Urea Nitrogen 8 mg/dL (7-20); Calcium 8.9 mg/dL (8.6-10.8); Carbon Dioxide 29 mEq/L (19-29); Chloride 98 mEq/L (98-109); Glucose 109 mg/dL (70-99); Magnesium 2.1 mg/dL (1.6-2.6); Osmolality,Calculated 279 (280-300); Potassium 2.9 mEq/L (3.5-4.5); Sodium 135 mEq/L (136-145); eGFR For African Americans > 60 (> 60); eGFR For Non-African Americans > 60 (> 60)
[2017-02-26] MEDS: *HR* Heparin 5,000 UNIT/ML VIAL SQ SCH ×2 (05:48→17:16)
[2017-02-26] MEDS: Ondansetron 4 MG/2 ML VIAL IVP PRN ×4 (05:49→20:58)
[2017-02-26] MEDS: Pantoprazole 40 MG VIAL IVP SCH (05:49)
[2017-02-26] MEDS: Budesonide/Formoterol 160/4.5 MDI IH SCH ×2 (07:43→21:37)
[2017-02-26] MEDS: Nicotine 21 MG PATCH.TD24 TD SCH (08:56)
[2017-02-26] MEDS: FLUoxetine 20 MG CAPSULE PO SCH (08:57)
--- NOTE | 2017-02-26 11:23 | General Surgery Progress Note ---
Date of Encounter: 02/26/17 Time of Encounter: 11:00 - Assessment and Plan (1) Partial small bowel obstruction Current Visit: Yes Status: Acute Continue with conservative measures: NPO NG tube to LIWS IV fluids Supportive care/pain control Serial abdominal exams IS every 1 hour while awake SBFT with gastrograffin via NG tube today Will continue to follow and assess progress Subjective Patient reports: no new complaints, feels better, still having pain, pain is less, voiding w/o difficulty, flatus (last evening, none this morning), no bowel movement, afebrile Objective Vital Signs - Last 8 Hours Temp Pulse Resp BP Pulse Ox 02/26/17 11:02 98.1 F 76 16 106/69 91 02/26/17 07:43 16 98/63 90 02/26/17 06:43 98.3 F 82 16 98/63 95 Intake and Output 02/25/17 02/26/17 02/26/17 23:59 07:59 15:59 Intake Total 1000 / 1000 0 / 0 900 / 900 Output Total 0 / 0 1200 / 1200 400 / 400 Balance 1000 / 1000 -1200 / -1200 500 / 500 Intake: IV Fluids 1000 / 1000 900 / 900 D5% And 0.45% Nacl 1000 1000 / 1000 900 / 900 Ml Bag 1,000 ML @ 75 mls/ hr IVC .[id number] LÓPEZ Rx#: [id number] Oral 0 / 0 0 / 0 0 / 0 Output: Urine 0 / 0 400 / 400 200 / 200 Gastric Drainage 0 / 0 800 / 800 200 / 200 Other: Meal NPO # Bowel Movements 0 0 Blood Glucose* 114 105 114 - General physical appearance well developed, well nourished, no distress - Eyes normal ocular movement - ENT normal mucosa, atraumatic, normocephalic - Neck Neck exam: trachea midline - Respiratory normal respiratory effort, clear to auscultation - Cardiovascular Cardiovascular exam: Present: RRR - Abdomen Abdomen: Present: bowel sounds present (hypoactive), soft, tender (minimal, generalized) - Neurologic CN 2-12 grossly intact - Musculoskeletal normal gait, normal posture - Psychiatric oriented to time, oriented to person, oriented to place, speech is normal, memory intact - Labs 02/25/17 04:06 02/26/17 03:06 Diabetes panel 02/26/17 Range/Units 03:06 Sodium 135 L (136-145) mEq/L Potassium 2.9 L (3.5-4.5) mEq/L Chloride 98 (98-109) mEq/L Carbon Dioxide 29 (19-29) mEq/L BUN 8 (7-20) mg/dL Creatinine 0.73 (0.57-1.11) mg/dL Glucose 109 H (70-99) mg/dL Calcium 8.9 (8.6-10.8) mg/dL Calcium panel 02/26/17 Range/Units 03:06 Calcium 8.9 (8.6-10.8) mg/dL Pituitary panel 02/26/17 Range/Units 03:06 Sodium 135 L (136-145) mEq/L Potassium 2.9 L (3.5-4.5) mEq/L Chloride 98 (98-109) mEq/L Carbon Dioxide 29 (19-29) mEq/L BUN 8 (7-20) mg/dL Creatinine 0.73 (0.57-1.11) mg/dL Glucose 109 H (70-99) mg/dL Calcium 8.9 (8.6-10.8) mg/dL Adrenal panel 02/26/17 Range/Units 03:06 Sodium 135 L (136-145) mEq/L Potassium 2.9 L (3.5-4.5) mEq/L Chloride 98 (98-109) mEq/L Carbon Dioxide 29 (19-29) mEq/L BUN 8 (7-20) mg/dL Creatinine 0.73 (0.57-1.11) mg/dL Glucose 109 H (70-99) mg/dL Calcium 8.9 (8.6-10.8) mg/dL Consult Discharge Plan - Plan Referrals: Rosario Bradshaw MD [Primary Care Provider] -
[2017-02-26] MEDS: Potassium Chloride 40 MEQ in D5% in 0.45% NACL 1,000 ML IVC SCH (14:04)
--- NOTE | 2017-02-26 16:40 | Internal Med Progress Note ---
Date of Encounter: 02/26/17 Time of Encounter: 13:30 - Assessment and plan (1) Small bowel obstruction Current Visit: Yes Status: Acute Assessment and plan: Patient presented with persistent vomiting and abdominal pain. CT abdomen shows partial distal small bowel obstruction. Continue conservative medical management with nasogastric tube to low intermittent wall suction and IV hydration. Keep nothing by mouth for now. Nasogastric tube output noted to be decreasing at this time. Surgery consult and follow up appreciated, recommend small bowel follow-through with Gastrografin today. Pain control with when necessary IV morphine. Supportive care. (2) Tobacco abuse Current Visit: Yes Status: Chronic Assessment and plan: Continue nicotine transdermal patch. (3) COPD (chronic obstructive pulmonary disease) Current Visit: Yes Status: Chronic Assessment and plan: Not noted to be in acute exacerbation. Continue when necessary bronchodilators and supplemental oxygen. Qualifiers: COPD type: unspecified COPD Qualified Code(s): J44.9 - Chronic obstructive pulmonary disease, unspecified (4) Anxiety and depression Current Visit: Yes Status: Chronic - Subjective Interval history: Feels better than yesterday. Began to have abdominal fullness and cramping after Gastrografin ingestion; feels nauseous with the contrast but no vomiting or severe abdominal pain since receiving nasogastric tube. - Constitutional Vitals: Temp Pulse Resp BP Pulse Ox 97.9 F 102 18 148/84 90 02/26/17 15:21 02/26/17 15:21 02/26/17 15:21 02/26/17 15:21 02/26/17 15:21 General appearance: Present: cachectic, A&O X 3, answers questions appropriately - Respiratory Respiratory exam: Present: CTAB. Absent: accessory muscle use, rales, rhonchi, wheezes - Cardiovascular Cardiovascular exam: Present: RRR, +S1, +S2. Absent: diastolic murmur, gallop, rubs, systolic murmur - GI/Abdominal GI/Abdominal exam: Present: diminished bowel sounds, distended, soft, no peritoneal signs. Absent: tenderness - Extremities Exam Extremities exam: Present: full ROM, warm, radial pulses palpable and symetrical. Absent: calf tenderness, cyanotic, pedal edema Internal Medicine: Result - Labs CBC & Chem 7: 02/25/17 04:06 02/26/17 03:06 Labs: BMP 02/26/17 03:06 Sodium 135 L Potassium 2.9 L Chloride 98 Carbon Dioxide 29 BUN 8 Creatinine 0.73 Glucose 109 H Calcium 8.9 - Impressions Impressions Small Bowel X-Ray 02/26/17 11:02 IMPRESSION: Dilated proximal to mid small bowel, and slow progression of contrast to the mid to distal small bowel, likely related to partial small bowel obstruction. There is air in the transverse colon. No evidence of pneumoperitoneum. The results were called by Dr. Adan An MD to Ms. Ruba Salgado on 02/26/2017 at 14:32. D/ / Adan An MD / Adan An MD Interpreting Provider: Adan An MD Consult Discharge Plan - Plan Referrals: Rosario Bradshaw MD [Primary Care Provider] -
[2017-02-26] MEDS: traZODone 50 MG TABLET PO SCH (20:06)
[2017-02-27] MEDS: *HR* Morphine 2 MG/ML SYRINGE IVP PRN ×4 (02:36→19:52)
[2017-02-27] MEDS: Ondansetron 4 MG/2 ML VIAL IVP PRN ×4 (02:36→20:03)
[2017-02-27] MEDS: Potassium Chloride 40 MEQ in D5% in 0.45% NACL 1,000 ML IVC SCH ×2 (04:19→19:51)
[2017-02-27 05:46] LABS: BUN/Creatinine Ratio 10 (6-26); Blood Urea Nitrogen 8 mg/dL (7-20); Calcium 9.6 mg/dL (8.6-10.8); Carbon Dioxide 28 mEq/L (19-29); Chloride 101 mEq/L (98-109); Glucose 97 mg/dL (70-99); Magnesium 2.2 mg/dL (1.6-2.6); Osmolality,Calculated 288 (280-300); Phosphorous 3.2 mg/dL (2.3-4.7); Potassium 3.8 mEq/L (3.5-4.5); Sodium 140 mEq/L (136-145); eGFR For African Americans > 60 (> 60); eGFR For Non-African Americans > 60 (> 60)
[2017-02-27] MEDS: *HR* Heparin 5,000 UNIT/ML VIAL SQ SCH ×2 (06:49→17:56)
[2017-02-27] MEDS: Pantoprazole 40 MG VIAL IVP SCH (06:49)
--- NOTE | 2017-02-27 08:16 | General Surgery Progress Note ---
Date of Encounter: 02/27/17 Time of Encounter: 07:15 - Assessment and Plan (1) Small bowel obstruction Current Visit: Yes Status: Acute The patient has evidence of bowel obstruction on small bowel follow-through and follow-up KUB. I will discuss the findings with the patient and discuss a treatment plan. We will continue nasogastric tube drainage today and bowel rest. Subjective Narrative: The patient is seen and evaluated. She continues to have high nasogastric tube output. Small bowel follow-through does not go through to the colon. She appears to have a very high grade partial bowel obstruction or complete bowel obstruction. I will talk to the patient later today. This may require exploratory laparotomy in order to get this to resolve. We will continue nasogastric tube drainage and bowel rest at this point. It is noted that the patient has normal bowel sounds on physical examination today which speaks more to conservative management. Objective Vital Signs - Last 8 Hours Temp Pulse Resp BP Pulse Ox 02/27/17 07:44 98.5 F 98 16 131/81 92 02/27/17 04:45 98.2 F 89 16 120/76 95 Intake and Output 02/26/17 02/27/17 02/27/17 23:59 07:59 15:59 Intake Total 440 / 440 1260 / 1260 Output Total 1300 / 1300 1250 / 1250 Balance -860 / -860 10 / 10 Intake: IV Fluids 200 / 200 1020 / 1020 KCl 40 MEQ In D5% And 0. 1020 / 1020 45% Nacl 1000 Ml Bag 1, 000 ML @ 75 mls/hr IVC . [id number] LÓPEZ Rx#: [id number] Potassium Chloride 10 mEq 200 / 200 /100mL 10 meq In 100 ml @ 100 mls/hr IVPB Q1H LÓPEZ Rx#:[id number] Oral 240 / 240 240 / 240 Output: Urine 300 / 300 100 / 100 Gastric Drainage 1000 / 1000 1150 / 1150 Other: Meal NPO Percent of Meal Consumed 0% Weight 43.998 kg Blood Glucose* 98 96 Patient Weight 02/27/17 23:59 Weight 43.998 kg - General physical appearance well developed, well nourished - Respiratory normal expansion, normal respiratory effort, clear to percussion, clear to auscultation - Cardiovascular Cardiovascular exam: Present: RRR, no murmurs/rubs/gallops - Abdomen Abdomen: Present: bowel sounds present, soft, distended - Neurologic normal coordination, normal sensation - Psychiatric oriented to time, oriented to person, oriented to place, speech is normal, memory intact - Labs 02/25/17 04:06 02/27/17 04:04 Diabetes panel 02/27/17 Range/Units 04:04 Sodium 140 (136-145) mEq/L Potassium 3.8 (3.5-4.5) mEq/L Chloride 101 (98-109) mEq/L Carbon Dioxide 28 (19-29) mEq/L BUN 8 (7-20) mg/dL Creatinine 0.78 (0.57-1.11) mg/dL Glucose 97 (70-99) mg/dL Calcium 9.6 (8.6-10.8) mg/dL Calcium panel 02/27/17 Range/Units 04:04 Calcium 9.6 (8.6-10.8) mg/dL Phosphorus 3.2 (2.3-4.7) mg/dL Pituitary panel 02/27/17 Range/Units 04:04 Sodium 140 (136-145) mEq/L Potassium 3.8 (3.5-4.5) mEq/L Chloride 101 (98-109) mEq/L Carbon Dioxide 28 (19-29) mEq/L BUN 8 (7-20) mg/dL Creatinine 0.78 (0.57-1.11) mg/dL Glucose 97 (70-99) mg/dL Calcium 9.6 (8.6-10.8) mg/dL Adrenal panel 02/27/17 Range/Units 04:04 Sodium 140 (136-145) mEq/L Potassium 3.8 (3.5-4.5) mEq/L Chloride 101 (98-109) mEq/L Carbon Dioxide 28 (19-29) mEq/L BUN 8 (7-20) mg/dL Creatinine 0.78 (0.57-1.11) mg/dL Glucose 97 (70-99) mg/dL Calcium 9.6 (8.6-10.8) mg/dL - Imaging Abdominal x-ray: image reviewed (I personally reviewed the small bowel follow- through and follow-up KUB film. Findings are suggestive of bowel obstruction.) Consult Discharge Plan - Plan Referrals: Rosario Bradshaw MD [Primary Care Provider] -
[2017-02-27] MEDS: FLUoxetine 20 MG CAPSULE PO SCH (09:12)
[2017-02-27] MEDS: Nicotine 21 MG PATCH.TD24 TD SCH (09:19)
--- NOTE | 2017-02-27 10:15 | Internal Med Progress Note ---
Date of Encounter: 02/27/17 Time of Encounter: 10:12 - Assessment and plan (1) Small bowel obstruction Current Visit: Yes Status: Acute Assessment and plan: Patient presented with persistent vomiting and abdominal pain, with history of previous surgery for strangulated hernia/necrotic bowel. CT abdomen shows partial distal small bowel obstruction. Continue conservative medical management with nasogastric tube to low intermittent wall suction and IV hydration. Keep nothing by mouth for now. Patient continues to have significant output from nasogastric tube. Small bowel follow-through showed no contrast in the colon due to small bowel obstruction. Repeat abdominal x-rays show persistent dilated loops of small bowel. Surgery follow-up noted, possible surgical intervention, yet to discuss with patient and family. Pain control with when necessary IV morphine. Supportive care. (2) Tobacco abuse Current Visit: Yes Status: Chronic Assessment and plan: Continue nicotine transdermal patch. (3) COPD (chronic obstructive pulmonary disease) Current Visit: Yes Status: Chronic Assessment and plan: Not noted to be in acute exacerbation. Continue when necessary bronchodilators and supplemental oxygen. Qualifiers: COPD type: unspecified COPD Qualified Code(s): J44.9 - Chronic obstructive pulmonary disease, unspecified (4) Anxiety and depression Current Visit: Yes Status: Chronic - Subjective Interval history: Reports dry mouth and requests ice chips, sucking on them now; some epigastric discomfort due to NG tube to LIWS; no bowel movements; no fever/chills; - Constitutional Vitals: Temp Pulse Resp BP Pulse Ox 98.5 F 98 16 131/81 92 02/27/17 07:44 02/27/17 07:44 02/27/17 07:44 02/27/17 07:44 02/27/17 07:44 General appearance: Present: cachectic, A&O X 3, answers questions appropriately - Respiratory Respiratory exam: Present: CTAB. Absent: accessory muscle use, rales, rhonchi, wheezes - Cardiovascular Cardiovascular exam: Present: RRR, +S1, +S2, tachycardia. Absent: diastolic murmur, gallop, rubs, systolic murmur - GI/Abdominal GI/Abdominal exam: Present: hyperactive bowel sounds (on the left side), soft, no peritoneal signs. Absent: distended, tenderness - Extremities Exam Extremities exam: Present: full ROM, warm, radial pulses palpable and symetrical. Absent: calf tenderness, cyanotic, pedal edema Internal Medicine: Result - Labs CBC & Chem 7: 02/25/17 04:06 02/27/17 04:04 Labs: BMP 02/27/17 04:04 Sodium 140 Potassium 3.8 Chloride 101 Carbon Dioxide 28 BUN 8 Creatinine 0.78 Glucose 97 Calcium 9.6 - Impressions Impressions Small Bowel X-Ray 02/26/17 11:02 IMPRESSION: Dilated proximal to mid small bowel, and slow progression of contrast to the mid to distal small bowel, likely related to partial small bowel obstruction. There is air in the transverse colon. No evidence of pneumoperitoneum. The results were called by Dr. Adan An MD to Ms. Ruba Salgado on 02/26/2017 at 14:32. D/ / Adan An MD / Adan An MD Interpreting Provider: Adan An MD X-Ray 02/26/17 15:44 IMPRESSION: Persistently dilated loops of small bowel. There is no significant progression of contrast since the prior study performed at 2 p.m. today. Findings are suggestive of small bowel obstruction. Enteric tube with side hole near the gastroesophageal junction. Ideally, the tube should be advanced by several cm. D/ / Merary Hay Cha, MD / Merary Hay Cha, MD Interpreting Provider: Merary Hay Cha, MD Consult Discharge Plan - Plan Referrals: Rosario Bradshaw MD [Primary Care Provider] -
[2017-02-27] MEDS: Budesonide/Formoterol 160/4.5 MDI IH SCH ×2 (11:30→20:21)
[2017-02-27] MEDS: D5% in 0.45% NACL 1,000 ML IVC SCH (19:28)
[2017-02-27] MEDS: traZODone 50 MG TABLET PO SCH (19:29)
[2017-02-28] MEDS: Ondansetron 4 MG/2 ML VIAL IVP PRN ×2 (00:01→04:29)
[2017-02-28] MEDS: *HR* Morphine 2 MG/ML SYRINGE IVP PRN ×6 (00:02→23:38)
[2017-02-28 04:05] LABS: BUN/Creatinine Ratio 11 (6-26); Blood Urea Nitrogen 8 mg/dL (7-20); Calcium 9.7 mg/dL (8.6-10.8); Carbon Dioxide 28 mEq/L (19-29); Chloride 101 mEq/L (98-109); Glucose 104 mg/dL (70-99); Osmolality,Calculated 283 (280-300); Phosphorous 3.3 mg/dL (2.3-4.7); Potassium 4.3 mEq/L (3.5-4.5); Sodium 137 mEq/L (136-145); eGFR For African Americans > 60 (> 60); eGFR For Non-African Americans > 60 (> 60)
[2017-02-28] MEDS: Pantoprazole 40 MG VIAL IVP SCH (06:25)
[2017-02-28] MEDS: *HR* Heparin 5,000 UNIT/ML VIAL SQ SCH ×2 (06:25→17:41)
[2017-02-28] MEDS: Budesonide/Formoterol 160/4.5 MDI IH SCH (08:03)
[2017-02-28] MEDS: FLUoxetine 20 MG CAPSULE PO SCH (09:21)
--- NOTE | 2017-02-28 09:26 | Event Note ---
Date of Encounter: 02/28/17 Time of Encounter: 08:00 I spoke with the patient again this morning. She has not had bowel movement or passed flatus. She has crampy abdominal pain. She is had flat plate of the abdomen on that was essentially identical with no passage of contrast into the colon. I believe that she has a complete bowel obstruction and will require surgery I shared this information with her and she wishes to proceed with exploratory laparotomy and any necessary procedure to relieve the obstruction. I also spoke with our dietitian. She is nutritionally depleted and will require central line and total parenteral nutrition.
[2017-02-28] MEDS ORDERED: Albuterol 2.5 MG/3 ML NEBULIZER IH ONE (09:35)
[2017-02-28] MEDS ORDERED: Albuterol 2.5 MG/3 ML NEBULIZER ONE (09:36)
--- NOTE | 2017-02-28 09:46 | Anesthesia Evaluation PreOp ---
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 History: Denies Any Significant HX Other Medical History: Other (anxiety/depression osteoporosis) Anesthesia History: No Prior Anesthetic Complications, Past Anesthesia (Hernia) Alcohol Use: none Drug use: none Medications and Allergies HYDROcodone/Acet 5/325 mg [[place] 5-325 mg] 1 tab PO Q4H PRN #10 tab 02/22/17 [Rx ] Ondansetron ODT [Zofran ODT] 4 mg SL Q6HR #20 tab.rapdis 02/22/17 [Rx] Albuterol Sulfate [Ventolin Hfa] 2 puff IH Q4-6H PRN 02/24/17 [History] Alendronate Sodium [Fosamax] 70 mg PO QWEEK 02/24/17 [History] Budesonide/Formoterol 160/4.5 [Symbicort 160/4.5] 1 puff IH BID 02/24/17 [ History] Calc/D3/Mag/Zn/Shwetha/[place] [Calcium 600 mg Plus Vit D Tab] 1 each PO DAILY 02/24/17 [History] Citalopram Hydrobromide [Citalopram HBr] 20 mg PO DAILY 02/24/17 [History] ClonazePAM [Klonopin] 0.5 mg PO BID 02/24/17 [History] Duloxetine HCl [Cymbalta] 60 mg PO QAM 02/24/17 [History] FLUoxetine HCl [Prozac] 40 mg PO QAM 02/24/17 [History] HydrOXYzine Pamoate [Vistaril] 50 mg PO TID PRN 02/24/17 [History] Tiotropium [Spiriva] 18 mcg IH 0700 02/24/17 [History] Trazodone HCl 50 - 100 mg PO HS 02/24/17 [History] Allergies codeine Allergy (Verified 02/24/17 14:22) Rash Penicillins Allergy (Verified 02/24/17 14:22) Rash tramadol [From [facility]] Adverse Reaction (Verified 02/24/17 14:22) See Comments - Meds/Allergy Pre-op Review Medications Reviewed: Yes Allergies Reviewed: Yes Beta Blockers on Current Med List: No Anesthesia Results - Labs 02/25/17 04:06 02/28/17 03:16 Anesthesia Exam Vital Signs/O2 Sat, Most Current Temp Pulse Resp BP Pulse Ox 98.4 F 102 18 114/75 88 02/28/17 06:53 02/28/17 06:53 02/28/17 08:03 02/28/17 06:53 02/28/17 08:03 Height: 5'3" Weight: 98 lb NPO (# of Hours): 8 hr Pain Scale: 3 Pain Scale Used: Numeric (1 - 10) - HEENT Pupil (Motor): Pupils equal Mallampati: II Teeth: Edentulous Oral Opening: Greater than 3 - SENIOR ENERGY TRADER LOC: Oriented SENIOR ENERGY TRADER Motor: Normal RUE, Normal LUE, Normal RLE, Normal LLE, Normal Face SENIOR ENERGY TRADER Sensory: Normal: RUE, LUE, RLE, LLE, Face - Cardiac Rhythm: Regular Murmur: None - Pulmonary Breath Sounds: bilateral Clear Respiratory Effort: Symmetrical Anesthesia Assess/Plan ASA Score: 2 (copd, smoker, anxiety) Modified Shun Scale for Level of Consciousness: Cooperative, oriented, and tranquil Anesthetic Plan: General Autologous Blood: No Monitoring Plan: Standard Monitors Recovery Plan: PACU <Zhao Uribe - Last Filed: 02/28/17 10:20> Date of Encounter: 02/28/17 - Past History Planned Operation: Exploratory Laparotomy, Possible Small Bowel Resection Other Medical History: Other (anxiety/depression) Anesthesia Results - Labs 02/25/17 04:06 02/28/17 03:16
[2017-02-28] MEDS ORDERED: Lidocaine -MPF 2% 2 ML VIAL ONE (10:00)
[2017-02-28] MEDS ORDERED: *HR* Propofol 200 MG/20 ML VIAL IVP ONE (10:00)
[2017-02-28] MEDS ORDERED: *HR* FentaNYL (PF) 100 MCG/2 ML VIAL ONE (10:00)
[2017-02-28] MEDS ORDERED: *HR* Midazolam HCl 2 MG/2 ML VIAL ONE (10:00)
[2017-02-28] MEDS ORDERED: *HR* Rocuronium Bromide 50 MG/5 ML VIAL ONE (10:00)
[2017-02-28] MEDS ORDERED: CefOXitin 1,000 MG VIAL ONE (10:11)
[2017-02-28] MEDS ORDERED: Ondansetron 4 MG/2 ML VIAL IVP ONE (10:23)
[2017-02-28] MEDS ORDERED: *HR* Promethazine 25 MG/ML VIAL IVP PRN (10:23)
[2017-02-28] MEDS ORDERED: Ondansetron 4 MG/2 ML VIAL ONE (11:25)
[2017-02-28] MEDS ORDERED: Neostigmine Methylsulfate 3 MG/3 ML SYRINGE ONE (11:25)
[2017-02-28] MEDS ORDERED: Dexamethasone 4 MG/ML VIAL ONE (11:25)
[2017-02-28] MEDS ORDERED: *HR* Morphine 10 MG/ML VIAL ONE (11:27)
--- NOTE | 2017-02-28 11:43 | Operative Note ---
Date of procedure: 02/28/17 Pre-op diagnosis: #1 bowel obstruction #2 malnutrition Post-op diagnosis: same Procedure: #1 by severe adhesions #2 appendectomy #3 central line placement Anesthesia: SILVIAA Surgeon: Louis Sosa Estimated blood loss (cc): 10 Specimen: Appendix Condition: stable Disposition: PACU Procedure in Detail: After informed consent the patient's tic may droppings we placed supine position given adequate general endotracheal anesthesia. Timeout taken patient is identified. The patient was positioned for central line. The left subclavian area was prepped and draped in sterile fashion utilizing ChloraPrep standard draping techniques I introduced a Seldinger needle into the subclavian vein on first pass. The Seldinger wire passed without difficulty. There were no episodes of heart arrhythmia. I nicked the skin with #11 blade and dilated the appropriate trocar. The triple-lumen catheter was placed without difficulty. This was sutured in place with 3-0 silk and the antibiotic ring was placed on the uterus. All 3 ports aspirated normally and flushed. Sterile dressing is applied. The patient positioned for exploratory laparotomy. The abdomen was prepped and draped in sterile fashion utilizing ChloraPrep standard draping techniques. I opened the abdomen she had markedly dilated proximal small bowel I followed this to the level of the anastomosis. The anastomosis was completely intact at the base the anastomosis was a tight ring of scar tissue that involved the end of the appendix. I divided the scar with Metzenbaum scissors and the obstruction was completely relieved. I was able to pass bowel contents through the anastomosis and then the colon without any difficulty. Because the appendix was involved in the scarring process I decided to remove the appendix. I divided the mesoappendix with clamps and hemostatic ligatures and divided the appendix off the cecum with a TA 60. This was not an incision and total appendectomy. The appendix was involved in the obstructive process. The obstruction was completely relieved area the abdomen was irrigated with copious amount of antibiotic containing solution. I closed the midline with looped 0 PDS. She tolerated procedure very well. Skin was closed with Vicryls and skin clips. She is transferred to recovery in stable condition
[2017-02-28] MEDS: *HR* HYDROmorphone (PF) 1 MG/ML SYRINGE IVP PRN ×2 (12:15→12:25)
[2017-02-28] MEDS ORDERED: D10% in Water 500 ML IVC PRN ×2 (12:16→13:11)
--- NOTE | 2017-02-28 12:52 | Anesthesia Evaluation Post Op ---
Date of Encounter: 02/28/17 Time of Encounter: 12:51 - Vital Signs Vital Signs: Vital Signs/O2 Sat, Most Current Temp Pulse Resp BP Pulse Ox 99.3 F 90 18 108/69 93 02/28/17 12:46 02/28/17 12:46 02/28/17 12:46 02/28/17 12:46 02/28/17 12:46 - Lungs Lungs: Clear Ascult./Percussion - Airway Airway: Non-obstructed - Cardiovascular Regular Rate - Mental Status Mental Status: Alert & Oriented, Answers Appropriately - Pain Pain Scale: 5 Pain Scale used: Numeric (1 - 10) - Nausea Vomiting Nausea Vomiting: Responds to treatment with IV Meds - Hydration Hydration: NPO, Wilkins catheter - Discharge PostOp Status: Transfer Patient to floor
[2017-02-28] MEDS ORDERED: Ipratropium/Albuterol Neb 3 ML IH PRN (13:11)
[2017-02-28] MEDS ORDERED: Naloxone 0.4 MG/ML INJ IVP PRN (13:11)
[2017-02-28] MEDS: Potassium Chloride 40 MEQ in D5% in 0.45% NACL 1,000 ML IVC SCH ×2 (14:50→19:24)
--- NOTE | 2017-02-28 14:51 | Internal Med Progress Note ---
"Date of Encounter: 02/28/17 Time of Encounter: 13:35 - Assessment and plan (1) Small bowel obstruction Current Visit: Yes Status: Acute Assessment and plan: Patient failed to improve with conservative medical management including bowel rest, IV hydration, gastric decompression with NG tube suctioning. Surgery follow-up appreciated. Patient underwent exploratory laparotomy with lysis of adhesions and appendectomy, postoperative day 1. Local wound care and postop care per surgery recommendations. Continue bowel rest with IV hydration at this time, continue NG tube to low intermittent wall suction. Pain control with when necessary IV morphine and oral Percocet. Patient requires bowel rest for a few days and noted to have baseline malnutrition and cachexia. She received left subclavian central line today and will be started on TPN. Nutrition consult. Supportive care. (2) Tobacco abuse Current Visit: Yes Status: Chronic Assessment and plan: Continue nicotine transdermal patch. (3) COPD (chronic obstructive pulmonary disease) Current Visit: Yes Status: Chronic Qualifiers: COPD type: unspecified COPD Qualified Code(s): J44.9 - Chronic obstructive pulmonary disease, unspecified (4) Anxiety and depression Current Visit: Yes Status: Chronic - Subjective Interval history: Back from surgery, underwent exploratory laparotomy and appendectomy. Continues to have NG tube drainage. Reports mild abdominal pain at surgical site as anesthesia is wearing off now. No vomiting. No bowel movements yet. - Constitutional Vitals: Temp Pulse Resp BP Pulse Ox 97.8 F 90 16 107/70 93 02/28/17 13:50 02/28/17 13:50 02/28/17 13:50 02/28/17 13:50 02/28/17 13:50 General appearance: Present: cachectic, A&O X 3, answers questions appropriately - Respiratory Respiratory exam: Present: CTAB. Absent: accessory muscle use, rales, rhonchi, wheezes - Cardiovascular Cardiovascular exam: Present: RRR, +S1, +S2. Absent: diastolic murmur, gallop, rubs, systolic murmur - GI/Abdominal GI/Abdominal exam: Present: diminished bowel sounds, soft, no peritoneal signs. Absent: distended, tenderness Additional comments: | Midline surgical incision with dressing intact. Mild tenderness. - Extremities Exam Extremities exam: Present: full ROM Internal Medicine: Result - Labs CBC & Chem 7: 02/25/17 04:06 05/07/17 03:16 Labs: BMP 02/28/17 03:16 Sodium 137 Potassium 4.3 Chloride 101 Carbon Dioxide 28 BUN 8 Creatinine 0.74 Glucose 104 H Calcium 9.7 - Impressions Impressions Chest X-Ray 02/28/17 12:19 IMPRESSION: Status post left subclavian central venous catheter placement tip in the SVC. No pneumothorax noted. COPD with increasing airspace disease left lung base questioning developing pneumonia or atelectasis. D/ : / 02/28/2017 12:58:44 Jeremiah Avitia MD / [email or web address] Interpreting Provider: Jeremiah Avitia MD Consult Discharge Plan - Plan Referrals: Rosario Bradshaw MD [Primary Care Provider] -"
[2017-02-28] MEDS ORDERED: Clinimix E 5%-20% SOLUTION 2,000 ML, Amino Acids 10% 0 ML with MVI, adult with vitami... IVC SCH (17:00)
[2017-02-28] MEDS ORDERED: Clinimix E 5%-15% SOLUTION 2,000 ML with MVI, adult with vitamin K 10 ML IVC SCH ×2 (17:00)
[2017-02-28] MEDS: Nicotine 21 MG PATCH.TD24 TD SCH (19:24)
[2017-03-01] MEDS: Potassium Chloride 40 MEQ in D5% in 0.45% NACL 1,000 ML IVC SCH (04:02)
[2017-03-01] MEDS: *HR* Morphine 2 MG/ML SYRINGE IVP PRN ×6 (04:10→21:56)
[2017-03-01 04:46] LABS: BUN/Creatinine Ratio 19 (6-26); Blood Urea Nitrogen 11 mg/dL (7-20); Calcium 9.1 mg/dL (8.6-10.8); Carbon Dioxide 30 mEq/L (19-29); Chloride 101 mEq/L (98-109); Glucose 111 mg/dL (70-99); Osmolality,Calculated 282 (280-300); Potassium 3.8 mEq/L (3.5-4.5); Sodium 136 mEq/L (136-145); eGFR For African Americans > 60 (> 60); eGFR For Non-African Americans > 60 (> 60)
[2017-03-01] MEDS: *HR* Heparin 5,000 UNIT/ML VIAL SQ SCH ×2 (06:37→17:04)
[2017-03-01] MEDS: Nicotine 21 MG PATCH.TD24 TD SCH (07:52)
--- NOTE | 2017-03-01 10:09 | General Surgery Progress Note ---
Date of Encounter: 03/01/17 Time of Encounter: 10:07 - Assessment and Plan (1) Small bowel obstruction Current Visit: Yes Status: Acute POD#1 exploratory laparotomy, appendectomy. Patient denies BM or passing gas. She has positive bowel sounds. NG tube has no drainage.She complains of pain. Plan: Remove NG Remove nicholson Ambulate patient She should remain NPO until she has passed gas or had a BM. Subjective Patient reports: feels better, still having pain Narrative: Patient seen and examined. NG in place with no current output. Patient has bowel sounds. She complains of pain. She has not had a BM or passed gas. Plan to remove NG and nicholson, ambulate patient. She should remain NPO until she has passed gas or had a BM. Objective Vital Signs - Last 8 Hours Temp Pulse Resp BP Pulse Ox 03/01/17 08:06 97.7 F 85 18 104/69 92 03/01/17 04:22 97.6 F 84 18 110/74 93 Intake and Output 02/28/17 03/01/17 03/01/17 23:59 07:59 15:59 Intake Total 280 / 280 Output Total 850 / 850 250 / 250 Balance -570 / -570 -250 / -250 Intake: IV Fluids 250 / 250 Intralipid 20% 250 ML @ 250 / 250 21 mls/hr IVPB DAILY@1700 [facility] Rx#:[id number] Oral 30 / 30 Output: Catheter 600 / 600 250 / 250 Gastric Drainage 250 / 250 Other: Blood Glucose* 178 110 117 - General physical appearance well developed, well nourished, moderate pain - Respiratory normal expansion, normal respiratory effort, clear to percussion, clear to auscultation - Cardiovascular Cardiovascular exam: Present: RRR, no murmurs/rubs/gallops - Abdomen Abdomen: Present: bowel sounds present, soft, non tender - Incision Incision: Present: clean and dry - Neurologic normal coordination, normal sensation - Musculoskeletal normal posture - Psychiatric oriented to time, oriented to person, oriented to place, speech is normal, memory intact - Labs 03/02/17 03:08 03/02/17 03:08 Diabetes panel 03/01/17 Range/Units 04:15 Sodium 136 (136-145) mEq/L Potassium 3.8 (3.5-4.5) mEq/L Chloride 101 (98-109) mEq/L Carbon Dioxide 30 H (19-29) mEq/L BUN 11 (7-20) mg/dL Creatinine 0.59 (0.57-1.11) mg/dL Glucose 111 H (70-99) mg/dL Calcium 9.1 (8.6-10.8) mg/dL Calcium panel 03/01/17 Range/Units 04:15 Calcium 9.1 (8.6-10.8) mg/dL Phosphorus 3.0 (2.3-4.7) mg/dL Pituitary panel 03/01/17 Range/Units 04:15 Sodium 136 (136-145) mEq/L Potassium 3.8 (3.5-4.5) mEq/L Chloride 101 (98-109) mEq/L Carbon Dioxide 30 H (19-29) mEq/L BUN 11 (7-20) mg/dL Creatinine 0.59 (0.57-1.11) mg/dL Glucose 111 H (70-99) mg/dL Calcium 9.1 (8.6-10.8) mg/dL Adrenal panel 03/01/17 Range/Units 04:15 Sodium 136 (136-145) mEq/L Potassium 3.8 (3.5-4.5) mEq/L Chloride 101 (98-109) mEq/L Carbon Dioxide 30 H (19-29) mEq/L BUN 11 (7-20) mg/dL Creatinine 0.59 (0.57-1.11) mg/dL Glucose 111 H (70-99) mg/dL Calcium 9.1 (8.6-10.8) mg/dL - VTE Documentation of Mechanical Device: Intermittent pneumatic compression device Consult Discharge Plan - Plan Referrals: Rosario Bradshaw MD [Primary Care Provider] - - Attending Attestation I examined this patient and my medical decision-making was reviewed with the INSTRUMENTATION CONTROLS ENGINEER/PA/Advanced Practice Nurse/Resident Physician. I agree with the documented findings, disposition and treatment plan as described except to the extent set forth below. The patient was seen and evaluated on morning rounds with the resident. Patient is doing well and the nasogastric tube drainage is falling off. We will remove the nasogastric tube later today. Louis Sosa MD FACS
--- NOTE | 2017-03-01 10:33 | Internal Med Progress Note ---
Date of Encounter: 03/01/17 Time of Encounter: 10:31 - Assessment and plan (1) Small bowel obstruction Current Visit: Yes Status: Acute Assessment and plan: Failed conservative medical management. Patient underwent exploratory laparotomy with lysis of adhesions and appendectomy, postoperative day 2. Continued abdominal pain, no flatus yet. Local wound care and postop care per surgery recommendations. Continue bowel rest. Discontinue NG tube per surgery. Continue TPN. Pain control with when necessary IV morphine. (2) Tobacco abuse Current Visit: Yes Status: Chronic Assessment and plan: Continue nicotine transdermal patch. (3) COPD (chronic obstructive pulmonary disease) Current Visit: Yes Status: Chronic Assessment and plan: Not noted to be in acute exacerbation. Continue when necessary bronchodilators and supplemental oxygen. Qualifiers: COPD type: unspecified COPD Qualified Code(s): J44.9 - Chronic obstructive pulmonary disease, unspecified (4) Anxiety and depression Current Visit: Yes Status: Chronic - Subjective Interval history: Reports abdominal pain at post-op site; awaiting removal of NG tube and Wilkins catheter today, per Surgery recommendations; no chest pain, dyspnea; does have some nausea; no flatus or BM; - Constitutional Vitals: Temp Pulse Resp BP Pulse Ox 97.7 F 85 18 104/69 92 03/01/17 08:06 03/01/17 08:06 03/01/17 08:06 03/01/17 08:06 03/01/17 08:06 General appearance: Present: cachectic, A&O X 3, answers questions appropriately - Respiratory Respiratory exam: Present: CTAB (anterolaterally). Absent: accessory muscle use , rales, rhonchi, wheezes - Cardiovascular Cardiovascular exam: Present: RRR, +S1, +S2. Absent: diastolic murmur, gallop, rubs, systolic murmur - GI/Abdominal GI/Abdominal exam: Present: diminished bowel sounds, soft (midline vertical surgical incision with dressing intact; slightly tense abdomen with tenderness at operative site), no peritoneal signs. Absent: distended, tenderness Internal Medicine: Result - Labs CBC & Chem 7: 02/25/17 04:06 03/01/17 04:15 Labs: BMP 03/01/17 04:15 Sodium 136 Potassium 3.8 Chloride 101 Carbon Dioxide 30 H BUN 11 Creatinine 0.59 Glucose 111 H Calcium 9.1 - Impressions Impressions Chest X-Ray 02/28/17 12:19 IMPRESSION: Status post left subclavian central venous catheter placement tip in the SVC. No pneumothorax noted. COPD with increasing airspace disease left lung base questioning developing pneumonia or atelectasis. D/ / 02/28/2017 12:58:44 Jeremiah Avitia MD / [email or web address] Interpreting Provider: Jeremiah Avitia MD - VTE Documentation of Mechanical Device: Intermittent pneumatic compression device Consult Discharge Plan - Plan Referrals: Rosario Bradshaw MD [Primary Care Provider] -
[2017-03-01] MEDS: Ondansetron 4 MG/2 ML VIAL IVP PRN (12:05)
[2017-03-01] MEDS ORDERED: Clinimix E 5%-15% SOLUTION 2,000 ML with MVI, adult with vitamin K 10 ML IVC SCH (17:00)
[2017-03-02] MEDS: *HR* Morphine 2 MG/ML SYRINGE IVP PRN ×2 (02:54→12:44)
[2017-03-02 03:16] LABS: Basophils % 0.3 %; Eosinophils # 0.1 K/mcL (0.0-0.6); Eosinophils % 0.9 %; Hematocrit 36.6 % (35.3-44.9); Hemoglobin 12.3 g/dL (11.5-15.4); Immature Granulocytes % 0.8 % (0-4); Lymphocytes # 1.8 K/mcL (0.6-4.6); Lymphocytes % 12.4 %; Mean Corpuscular HGB Conc 33.6 g/dL (31.6-35.5); Mean Corpuscular Hemoglobin 29.6 pg (28.0-33.3); Mean Platelet Volume 9.6 fL (9.4-12.4); Monocytes # 1.7 K/mcL (0.0-1.3); Monocytes % 11.7 %; Neutrophils # 10.8 K/mcL (1.6-8.9); Platelet Count 258 K/mcL (140-400); Red Blood Count 4.16 M/mcL (3.82-4.97); Segmented Neutrophils % 73.9 %
[2017-03-02 03:29] LABS: BUN/Creatinine Ratio 22 (6-26); Blood Urea Nitrogen 13 mg/dL (7-20); Calcium 9.1 mg/dL (8.6-10.8); Carbon Dioxide 27 mEq/L (19-29); Chloride 99 mEq/L (98-109); Glucose 87 mg/dL (70-99); Magnesium 1.8 mg/dL (1.6-2.6); Osmolality,Calculated 275 (280-300); Phosphorous 3.7 mg/dL (2.3-4.7); Potassium 3.7 mEq/L (3.5-4.5); Sodium 133 mEq/L (136-145); eGFR For African Americans > 60 (> 60); eGFR For Non-African Americans > 60 (> 60)
[2017-03-02] MEDS: *HR* Heparin 5,000 UNIT/ML VIAL SQ SCH ×2 (05:26→17:19)
[2017-03-02] MEDS: Nicotine 21 MG PATCH.TD24 TD SCH (08:18)
--- NOTE | 2017-03-02 09:31 | General Surgery Progress Note ---
Date of Encounter: 03/02/17 Time of Encounter: 09:29 - Assessment and Plan (1) Small bowel obstruction Current Visit: Yes Status: Acute POD#2 exploratory laparotomy, appendectomy. Patient denies BM or passing gas. She has positive bowel sounds. NG tube and nicholson have been removed. Plan: Advance diet to clear liquid, 300cc per shift Ambulate patient Subjective Patient reports: feels better, no flatus, no bowel movement Narrative: Patient seen and examined. She denies any gas or BM. Her NG is out. She reports feeling better this morning. Objective Vital Signs - Last 8 Hours Temp Pulse Resp BP Pulse Ox 03/02/17 07:32 97.5 F L 87 14 103/67 96 03/02/17 04:16 98.5 F 96 18 103/63 91 Intake and Output 03/01/17 03/02/17 03/02/17 23:59 07:59 15:59 Intake Total 0 / 0 250 / 250 Output Total 850 / 850 850 / 850 Balance -850 / -850 -600 / -600 Intake: IV Fluids 250 / 250 Intralipid 20% 250 ML @ 250 / 250 21 mls/hr IVPB DAILY@1700 [facility] Rx#:[id number] Oral 0 / 0 0 / 0 Output: Urine 850 / 850 850 / 850 Other: Meal NPO Weight 43.273 kg Blood Glucose* 106 116 Patient Weight 03/02/17 23:59 Weight 43.273 kg - General physical appearance well developed, well nourished, no distress - Respiratory normal expansion, normal respiratory effort, clear to percussion, clear to auscultation - Cardiovascular Cardiovascular exam: Present: RRR, no murmurs/rubs/gallops - Abdomen Abdomen: Present: bowel sounds present, soft, non tender - Incision Incision: Present: clean and dry - Psychiatric oriented to time, oriented to person, oriented to place, speech is normal, memory intact - Labs 03/03/17 04:40 03/03/17 04:40 Diabetes panel 03/02/17 Range/Units 03:08 Sodium 133 L (136-145) mEq/L Potassium 3.7 (3.5-4.5) mEq/L Chloride 99 (98-109) mEq/L Carbon Dioxide 27 (19-29) mEq/L BUN 13 (7-20) mg/dL Creatinine 0.60 (0.57-1.11) mg/dL Glucose 87 (70-99) mg/dL Calcium 9.1 (8.6-10.8) mg/dL Calcium panel 03/02/17 Range/Units 03:08 Calcium 9.1 (8.6-10.8) mg/dL Phosphorus 3.7 (2.3-4.7) mg/dL Pituitary panel 03/02/17 Range/Units 03:08 Sodium 133 L (136-145) mEq/L Potassium 3.7 (3.5-4.5) mEq/L Chloride 99 (98-109) mEq/L Carbon Dioxide 27 (19-29) mEq/L BUN 13 (7-20) mg/dL Creatinine 0.60 (0.57-1.11) mg/dL Glucose 87 (70-99) mg/dL Calcium 9.1 (8.6-10.8) mg/dL Adrenal panel 03/02/17 Range/Units 03:08 Sodium 133 L (136-145) mEq/L Potassium 3.7 (3.5-4.5) mEq/L Chloride 99 (98-109) mEq/L Carbon Dioxide 27 (19-29) mEq/L BUN 13 (7-20) mg/dL Creatinine 0.60 (0.57-1.11) mg/dL Glucose 87 (70-99) mg/dL Calcium 9.1 (8.6-10.8) mg/dL - VTE Documentation of Mechanical Device: Intermittent pneumatic compression device Consult Discharge Plan - Plan Referrals: Rosario Bradshaw MD [Primary Care Provider] - - Attending Attestation I examined this patient and my medical decision-making was reviewed with the TIMBER MANAGEMENT SPECIALIST/PA/Advanced Practice Nurse/Resident Physician. I agree with the documented findings, disposition and treatment plan as described except to the extent set forth below. The patient seen and evaluated on morning rounds with the resident. We will take out the nasogastric tube today and give her a volume restricted diet. Louis Sosa MD FACS
--- NOTE | 2017-03-02 14:23 | Internal Med Progress Note ---
Date of Encounter: 03/02/17 Time of Encounter: 14:21 - Assessment and plan (1) Small bowel obstruction Current Visit: Yes Status: Acute Assessment and plan: Failed conservative medical management. Patient underwent exploratory laparotomy with lysis of adhesions and appendectomy, postoperative day 3. Continued abdominal pain, no flatus yet. Local wound care and postop care per surgery recommendations. Continue bowel rest. Discontinued NG tube per surgery. Continue TPN. Pain control with when necessary IV morphine. order toradol prn walk may give full liq diet if passing gas (2) Tobacco abuse Current Visit: Yes Status: Chronic Assessment and plan: Continue nicotine transdermal patch. (3) COPD (chronic obstructive pulmonary disease) Current Visit: Yes Status: Chronic Assessment and plan: Not noted to be in acute exacerbation. Continue when necessary bronchodilators and supplemental oxygen. Qualifiers: COPD type: unspecified COPD Qualified Code(s): J44.9 - Chronic obstructive pulmonary disease, unspecified (4) Anxiety and depression Current Visit: Yes Status: Chronic - Subjective Interval history: no nausea, mild abdominal pain, no fever no CP or SOB, no dysuria - Constitutional Vitals: Temp Pulse Resp BP Pulse Ox 98.4 F 86 14 113/76 93 03/02/17 10:47 03/02/17 10:47 03/02/17 10:47 03/02/17 10:47 03/02/17 10:47 General appearance: Present: cachectic, A&O X 3, underweight, answers questions appropriately - Head Head exam: Present: atraumatic, normocephalic - Eye Eye exam: Present: PERRL, conjuntiva pink, sclera anicteric Pupils: Present: PERRL - Neck Neck exam general surgery: Present: supple, trachea midline. Absent: lymphadenopathy - Respiratory Respiratory exam: Present: CTAB. Absent: accessory muscle use, rales, rhonchi, wheezes - Cardiovascular Cardiovascular exam: Present: RRR, +S1, +S2. Absent: diastolic murmur, gallop, rubs, systolic murmur - GI/Abdominal GI/Abdominal exam: Present: distended, normal bowel sounds, soft, no peritoneal signs. Absent: tenderness Additional comments: large abdominal wound , no signs of infection - Extremities Exam Extremities exam: Present: warm, radial pulses palpable and symetrical. Absent : calf tenderness, cyanotic, pedal edema - Neurological Exam Neurological exam: Present: CN II-XII intact, oriented X3, no focal deficits. Absent: pronater drift, facial droop, speech deficit - Skin Skin exam: Present: dry, intact Internal Medicine: Result - Labs CBC & Chem 7: 03/02/17 03:08 03/02/17 03:08 Labs: Short CBC 03/02/17 Range/Units 03:08 WBC 14.6 H D (4.3-11.1) K/mcL Hgb 12.3 (11.5-15.4) g/dL Hct 36.6 (35.3-44.9) % Plt Count 258 (140-400) K/mcL Neutrophils # 10.8 H (1.6-8.9) K/mcL BMP 03/02/17 03:08 Sodium 133 L Potassium 3.7 Chloride 99 Carbon Dioxide 27 BUN 13 Creatinine 0.60 Glucose 87 Calcium 9.1 - VTE Documentation of Mechanical Device: Intermittent pneumatic compression device Consult Discharge Plan - Plan Referrals: Rosario Bradshaw MD [Primary Care Provider] -
[2017-03-02] MEDS ORDERED: Clinimix E 5%-15% SOLUTION 2,000 ML with MVI, adult with vitamin K 10 ML IVC SCH (17:00)
[2017-03-02] MEDS: Ketorolac 15 MG/ML VIAL IVP PRN (19:25)
[2017-03-03] MEDS: Ketorolac 15 MG/ML VIAL IVP PRN (01:27)
[2017-03-03 05:02] LABS: Basophils % 0.3 %; Eosinophils # 0.2 K/mcL (0.0-0.6); Eosinophils % 1.9 %; Hematocrit 36.5 % (35.3-44.9); Hemoglobin 12.7 g/dL (11.5-15.4); Immature Granulocytes % 1.4 % (0-4); Lymphocytes % 16.9 %; Mean Corpuscular HGB Conc 34.8 g/dL (31.6-35.5); Mean Corpuscular Hemoglobin 30.2 pg (28.0-33.3); Mean Corpuscular Volume 86.9 fL (83.0-100.0); Mean Platelet Volume 9.9 fL (9.4-12.4); Monocytes # 1.4 K/mcL (0.0-1.3); Monocytes % 11.2 %; Neutrophils # 8.3 K/mcL (1.6-8.9); Platelet Count 327 K/mcL (140-400); Segmented Neutrophils % 68.3 %
[2017-03-03 05:04] LABS: BUN/Creatinine Ratio 33 (6-26); Blood Urea Nitrogen 20 mg/dL (7-20); Calcium 9.1 mg/dL (8.6-10.8); Carbon Dioxide 27 mEq/L (19-29); Chloride 96 mEq/L (98-109); Glucose 84 mg/dL (70-99); Osmolality,Calculated 274 (280-300); Potassium 3.8 mEq/L (3.5-4.5); Sodium 131 mEq/L (136-145); eGFR For African Americans > 60 (> 60); eGFR For Non-African Americans > 60 (> 60)
[2017-03-03] MEDS: Ondansetron 4 MG/2 ML VIAL IVP PRN (05:05)
[2017-03-03] MEDS: *HR* Morphine 2 MG/ML SYRINGE IVP PRN ×3 (05:05→21:38)
[2017-03-03] MEDS: *HR* Heparin 5,000 UNIT/ML VIAL SQ SCH ×2 (05:06→17:23)
[2017-03-03 05:45] LABS: Platelet Estimate Normal (Normal); Reactive Lymphocytes Present (Not Present)
[2017-03-03 05:46] LABS: Large Platelets Present (Not Present)
--- NOTE | 2017-03-03 08:56 | General Surgery Progress Note ---
Date of Encounter: 03/03/17 Time of Encounter: 08:54 - Assessment and Plan (1) Small bowel obstruction Current Visit: Yes Status: Acute POD#3 exploratory laparotomy, appendectomy. Patient denies BM or passing gas. She has positive bowel sounds. She has been tolerating her diet. She has been up multiple times walking to the nursing station desk and experiences gas pains. Plan: Start Reglan 20mg IV Q8hr x36 hours then discontinue Administer fleets enema Contine clear liquid diet, 300cc per shift Ambulate patient Subjective Patient reports: feels better, still having pain, tolerating liquids well, no flatus, no bowel movement Narrative: Patient was seen and examined. She is still having some pain, she has not had a BM or passed gas. She states that she was up walking to the nursing station multiple times and has gas pains. Objective Vital Signs - Last 8 Hours Temp Pulse Resp BP Pulse Ox 03/03/17 07:13 97.6 F 78 16 103/67 95 03/03/17 04:06 97.9 F 86 14 118/77 93 Intake and Output 03/02/17 03/03/17 03/03/17 23:59 07:59 15:59 Intake Total 0 / 0 420 / 420 Output Total 500 / 500 400 / 400 Balance -500 / -500 20 / 20 Intake: Oral 0 / 0 420 / 420 Output: Urine 500 / 500 400 / 400 Other: Weight 45.13 kg Blood Glucose* 108 108 Patient Weight 03/03/17 23:59 Weight 45.13 kg - General physical appearance well developed, well nourished, no distress, moderate distress, moderate pain - ENT atraumatic, normocephalic - Neck Neck exam: no masses, trachea midline - Respiratory normal expansion, normal respiratory effort, clear to percussion, clear to auscultation - Cardiovascular Cardiovascular exam: Present: RRR, no murmurs/rubs/gallops - Abdomen Abdomen: Present: bowel sounds present, soft, non tender - Integumentary no rash, no growths, no abnormal pigmentation - Psychiatric oriented to time, oriented to person, oriented to place, speech is normal, memory intact - Labs 03/03/17 04:40 03/04/17 04:30 Diabetes panel 03/03/17 Range/Units 04:40 Sodium 131 L (136-145) mEq/L Potassium 3.8 (3.5-4.5) mEq/L Chloride 96 L (98-109) mEq/L Carbon Dioxide 27 (19-29) mEq/L BUN 20 (7-20) mg/dL Creatinine 0.61 (0.57-1.11) mg/dL Glucose 84 (70-99) mg/dL Calcium 9.1 (8.6-10.8) mg/dL Calcium panel 03/03/17 Range/Units 04:40 Calcium 9.1 (8.6-10.8) mg/dL Pituitary panel 03/03/17 Range/Units 04:40 Sodium 131 L (136-145) mEq/L Potassium 3.8 (3.5-4.5) mEq/L Chloride 96 L (98-109) mEq/L Carbon Dioxide 27 (19-29) mEq/L BUN 20 (7-20) mg/dL Creatinine 0.61 (0.57-1.11) mg/dL Glucose 84 (70-99) mg/dL Calcium 9.1 (8.6-10.8) mg/dL Adrenal panel 03/03/17 Range/Units 04:40 Sodium 131 L (136-145) mEq/L Potassium 3.8 (3.5-4.5) mEq/L Chloride 96 L (98-109) mEq/L Carbon Dioxide 27 (19-29) mEq/L BUN 20 (7-20) mg/dL Creatinine 0.61 (0.57-1.11) mg/dL Glucose 84 (70-99) mg/dL Calcium 9.1 (8.6-10.8) mg/dL - VTE Documentation of Mechanical Device: Intermittent pneumatic compression device Consult Discharge Plan - Plan Referrals: Rosario Bradshaw MD [Primary Care Provider] - - Attending Attestation I examined this patient and my medical decision-making was reviewed with the REGIONAL TRANSFER LIAISON/PA/Advanced Practice Nurse/Resident Physician. I agree with the documented findings, disposition and treatment plan as described except to the extent set forth below. The patient is seen and evaluated on morning rounds. She will be given Reglan leads enema to stimulate her bowel activity. She has normal bowel sounds. We will advance her diet. Louis Sosa MD FACS
--- NOTE | 2017-03-03 09:15 | Internal Med Progress Note ---
Date of Encounter: 03/03/17 Time of Encounter: 09:13 - Assessment and plan (1) Small bowel obstruction Current Visit: Yes Status: Acute Assessment and plan: Failed conservative medical management. Patient underwent exploratory laparotomy with lysis of adhesions and appendectomy, postoperative day 4. Continued abdominal pain, no flatus yet. Local wound care and postop care per surgery recommendations. Discontinued NG tube. Continue TPN. Pain control with when necessary IV morphine. order toradol prn walk may advance diet if passing gas reglan per surgery (2) Tobacco abuse Current Visit: Yes Status: Chronic Assessment and plan: Continue nicotine transdermal patch. (3) COPD (chronic obstructive pulmonary disease) Current Visit: Yes Status: Chronic Assessment and plan: Not noted to be in acute exacerbation. Continue when necessary bronchodilators and supplemental oxygen. Qualifiers: COPD type: unspecified COPD Qualified Code(s): J44.9 - Chronic obstructive pulmonary disease, unspecified (4) Anxiety and depression Current Visit: Yes Status: Chronic - Time Spent With Patient Greater than 35 minutes - Subjective Interval history: no nausea, mild abdominal discomfort, no fever no CP or SOB, no dysuria, denies passing gas , no BMs - Constitutional Vitals: Temp Pulse Resp BP Pulse Ox 97.6 F 78 16 103/67 95 03/03/17 07:13 03/03/17 07:13 03/03/17 07:13 03/03/17 07:13 03/03/17 07:13 General appearance: Present: cachectic, A&O X 3, underweight, answers questions appropriately - Head Head exam: Present: atraumatic, normocephalic - Eye Eye exam: Present: PERRL, conjuntiva pink, sclera anicteric Pupils: Present: PERRL - Neck Neck exam general surgery: Present: supple, trachea midline. Absent: lymphadenopathy - Respiratory Respiratory exam: Present: CTAB. Absent: accessory muscle use, rales, rhonchi, wheezes - Cardiovascular Cardiovascular exam: Present: RRR, +S1, +S2. Absent: diastolic murmur, gallop, rubs, systolic murmur - GI/Abdominal GI/Abdominal exam: Present: diminished bowel sounds, distended, soft, no peritoneal signs. Absent: normal bowel sounds, tenderness Additional comments: large mid abdominal wound covered by dressing - Extremities Exam Extremities exam: Present: warm, radial pulses palpable and symetrical. Absent : calf tenderness, cyanotic, pedal edema - Neurological Exam Neurological exam: Present: CN II-XII intact, oriented X3, no focal deficits. Absent: pronater drift, facial droop, speech deficit - Skin Skin exam: Present: dry, intact Internal Medicine: Result - Labs CBC & Chem 7: 03/03/17 04:40 03/03/17 04:40 Labs: Short CBC 03/03/17 Range/Units 04:40 WBC 12.1 H (4.3-11.1) K/mcL Hgb 12.7 (11.5-15.4) g/dL Hct 36.5 (35.3-44.9) % Plt Count 327 (140-400) K/mcL Neutrophils # 8.3 (1.6-8.9) K/mcL BMP 03/03/17 04:40 Sodium 131 L Potassium 3.8 Chloride 96 L Carbon Dioxide 27 BUN 20 Creatinine 0.61 Glucose 84 Calcium 9.1 - VTE Documentation of Mechanical Device: Intermittent pneumatic compression device Consult Discharge Plan - Plan Referrals: Rosario Bradshaw MD [Primary Care Provider] -
[2017-03-03] MEDS: Nicotine 21 MG PATCH.TD24 TD SCH (11:07)
[2017-03-03] MEDS: Metoclopramide 20 MG in 0.9 % Sodium Chloride 50 ML IVPB SCH ×2 (11:07→17:24)
[2017-03-03] MEDS ORDERED: Clinimix E 5%-15% SOLUTION 2,000 ML with MVI, adult with vitamin K 10 ML IVC SCH (17:00)
[2017-03-04] MEDS: Metoclopramide 20 MG in 0.9 % Sodium Chloride 50 ML IVPB SCH ×2 (00:40→08:35)
[2017-03-04 04:55] LABS: BUN/Creatinine Ratio 21 (6-26); Blood Urea Nitrogen 12 mg/dL (7-20); Calcium 9.1 mg/dL (8.6-10.8); Carbon Dioxide 25 mEq/L (19-29); Chloride 104 mEq/L (98-109); Glucose 82 mg/dL (70-99); Magnesium 2.1 mg/dL (1.6-2.6); Osmolality,Calculated 285 (280-300); Phosphorous 3.6 mg/dL (2.3-4.7); eGFR For African Americans > 60 (> 60); eGFR For Non-African Americans > 60 (> 60)
[2017-03-04 04:59] LABS: Sodium 138 mEq/L (136-145)
[2017-03-04] MEDS: *HR* Heparin 5,000 UNIT/ML VIAL SQ SCH (05:57)
[2017-03-04] MEDS: Nicotine 21 MG PATCH.TD24 TD SCH (07:56)
[2017-03-04] MEDS: *HR* Morphine 2 MG/ML SYRINGE IVP PRN (07:57)
--- NOTE | 2017-03-04 09:12 | General Surgery Progress Note ---
Date of Encounter: 03/04/17 Time of Encounter: 09:08 - Assessment and Plan (1) Small bowel obstruction Status: Acute POD#4 exploratory laparotomy, appendectomy. Patient had a BM and has passing gas. She has positive bowel sounds. She has been tolerating her full liquid diet. She has been up multiple times walking. Anticipate discharge home tomorrow. Plan: Advance to regular diet. Can turn off the TPN once she tolerates the regular diet. Continue Reglan 20mg IV Q8hr x36 hours then discontinue Ambulate patient Subjective Patient reports: feels better, tolerating liquids well, flatus, bowel movement Narrative: Patient was seen and examined. Her pain is improving. She was able to have bowel movement yesterday. She is tolerating full liquid diet, but has diminished appetite. Objective Vital Signs - Last 8 Hours Temp Pulse Resp BP Pulse Ox 03/04/17 07:41 97.6 F 97 18 99/64 94 03/04/17 04:42 97.9 F 93 16 102/71 94 Intake and Output 03/03/17 03/04/17 03/04/17 23:59 07:59 15:59 Intake Total 2825.3 / 2825.3 1488.7 / 1488.7 54 / 54 Output Total 1800 / 1800 0 / 0 Balance 1025.3 / 1025.3 1488.7 / 1488.7 54 / 54 Intake: IV Fluids 1985.3 / 1984.3 1008.7 / 1008.7 54 / 54 Clinimix E 5%-15% 1890 / 1890 746 / 746 SOLUTION 2,000 ML @ 70 mls/hr IVC .Q24H [facility] with M.v.i. Adult 10 ml Rx#: [id number] Intralipid 20% 250 ML @ 41.3 / 41.3 208.7 / 208.7 21 mls/hr IVPB DAILY@1700 [facility] Rx#:[id number] Reglan 20 MG In 0.9 % 54 / 54 54 / 54 54 / 54 Sodium Chloride 50 ML @ 108 mls/hr IVPB Q8H [facility] Rx#:[id number] Oral 840 / 840 480 / 480 Output: Urine 1800 / 1800 0 / 0 Other: Meal Dinner Percent of Meal Consumed 35% Stool Size Small Stool Consistency liquid Weight 45.841 kg Blood Glucose* 129 108 Patient Weight 03/04/17 23:59 Weight 45.841 kg - General physical appearance well developed, well nourished, no distress - Eyes normal ocular movement - ENT atraumatic, normocephalic - Neck Neck exam: no masses, trachea midline - Abdomen Abdomen: Present: bowel sounds present, soft, non tender - Incision Incision: Present: clean and dry - Integumentary no rash - Psychiatric oriented to time, oriented to person, oriented to place, speech is normal, memory intact - Labs 03/03/17 04:40 03/04/17 04:30 Diabetes panel 03/04/17 Range/Units 04:30 Sodium 138 D (136-145) mEq/L Potassium 4.0 (3.5-4.5) mEq/L Chloride 104 (98-109) mEq/L Carbon Dioxide 25 (19-29) mEq/L BUN 12 (7-20) mg/dL Creatinine 0.58 (0.57-1.11) mg/dL Glucose 82 (70-99) mg/dL Calcium 9.1 (8.6-10.8) mg/dL Calcium panel 03/04/17 Range/Units 04:30 Calcium 9.1 (8.6-10.8) mg/dL Phosphorus 3.6 (2.3-4.7) mg/dL Pituitary panel 03/04/17 Range/Units 04:30 Sodium 138 D (136-145) mEq/L Potassium 4.0 (3.5-4.5) mEq/L Chloride 104 (98-109) mEq/L Carbon Dioxide 25 (19-29) mEq/L BUN 12 (7-20) mg/dL Creatinine 0.58 (0.57-1.11) mg/dL Glucose 82 (70-99) mg/dL Calcium 9.1 (8.6-10.8) mg/dL Adrenal panel 03/04/17 Range/Units 04:30 Sodium 138 D (136-145) mEq/L Potassium 4.0 (3.5-4.5) mEq/L Chloride 104 (98-109) mEq/L Carbon Dioxide 25 (19-29) mEq/L BUN 12 (7-20) mg/dL Creatinine 0.58 (0.57-1.11) mg/dL Glucose 82 (70-99) mg/dL Calcium 9.1 (8.6-10.8) mg/dL - VTE Documentation of Mechanical Device: Intermittent pneumatic compression device Consult Discharge Plan - Plan Additional Instructions: Follow with primary care physician within the next 7 days. Follow with surgery within the next 7 days to remove wound howard. #1 may shower, no tub bath for 2 weeks #2 wash incisions with soap and water and pat dry daily #3 no lifting, pushing, pulling more than 15 pounds for the next 6 weeks #4 no driving until off narcotics for 24 hours and able to safely react in the car #5 may climb stairs Referrals: Rosario Bradshaw MD [Primary Care Provider] - 03/11/17 11:15 am Ruba Salgado CNP [Advanced Practice Nurse] - 03/18/17 11:30 am (Surgery follow-up) Prescriptions: clonazePAM [Klonopin] 0.5 mg PO BID #30 tablet Docusate [Colace] 100 mg PO BID #30 capsule Nicotine Patch [Nicoderm] 21 mg TD DAILY 30 Days OxyCODONE/APAP 5/325 [Percocet 5/325 MG] 1 each PO Q4H PRN #35 tablet PRN Reason: Pain - Attending Attestation I examined this patient and my medical decision-making was reviewed with the THERAPEUTIC MASSAGE TECHNICIAN/PA/Advanced Practice Nurse/Resident Physician. I agree with the documented findings, disposition and treatment plan as described except to the extent set forth below. The patient is seen and evaluated on morning rounds. She is having regular bowel movements. We will advance her diet and discharge her this afternoon if she is ready Louis Sosa MD FACS
[2017-03-04] MEDS ORDERED: *HR* Morphine Soln 10 MG/5 ML UDC PO PRN (14:04)
--- NOTE | 2017-03-04 14:35 | General Surgery Progress Note ---
Date of Encounter: 03/04/17 Time of Encounter: 14:34 - Assessment and Plan (1) Partial small bowel obstruction Current Visit: Yes Status: Acute Continue with conservative measures: NPO NG tube to LIWS IV fluids Supportive care/pain control Serial abdominal exams IS every 1 hour while awake SBFT with gastrograffin via NG tube today Will continue to follow and assess progress Objective Vital Signs - Last 8 Hours Temp Pulse Resp BP Pulse Ox 03/04/17 10:53 98.0 F 90 18 105/69 93 03/04/17 07:41 97.6 F 97 18 99/64 94 Intake and Output 03/03/17 03/04/17 03/04/17 23:59 07:59 15:59 Intake Total 2825.3 / 2825.3 1488.7 / 1488.7 620 / 620 Output Total 1800 / 1800 1500 / 1500 300 / 300 Balance 1025.3 / 1025.3 -11.3 / -11.3 320 / 320 Intake: IV Fluids 1985.3 / 1984.3 1008.7 / 1008.7 140 / 140 Clinimix E 5%-15% 1890 / 1890 746 / 746 86 / 86 SOLUTION 2,000 ML @ 70 mls/hr IVC .Q24H [facility] with M.v.i. Adult 10 ml Rx#: [id number] Intralipid 20% 250 ML @ 41.3 / 41.3 208.7 / 208.7 21 mls/hr IVPB DAILY@1700 [facility] Rx#:[id number] Reglan 20 MG In 0.9 % 54 / 54 54 / 54 54 / 54 Sodium Chloride 50 ML @ 108 mls/hr IVPB Q8H [facility] Rx#:[id number] Oral 840 / 840 480 / 480 480 / 480 Output: Urine 1800 / 1800 1500 / 1500 300 / 300 Other: Meal Dinner Lunch Percent of Meal Consumed 35% 50% Stool Size Small Stool Consistency liquid Weight 45.841 kg Blood Glucose* 129 108 98 Patient Weight 03/04/17 23:59 Weight 45.841 kg - Labs 03/03/17 04:40 03/04/17 04:30 Diabetes panel 03/04/17 Range/Units 04:30 Sodium 138 D (136-145) mEq/L Potassium 4.0 (3.5-4.5) mEq/L Chloride 104 (98-109) mEq/L Carbon Dioxide 25 (19-29) mEq/L BUN 12 (7-20) mg/dL Creatinine 0.58 (0.57-1.11) mg/dL Glucose 82 (70-99) mg/dL Calcium 9.1 (8.6-10.8) mg/dL Calcium panel 03/04/17 Range/Units 04:30 Calcium 9.1 (8.6-10.8) mg/dL Phosphorus 3.6 (2.3-4.7) mg/dL Pituitary panel 03/04/17 Range/Units 04:30 Sodium 138 D (136-145) mEq/L Potassium 4.0 (3.5-4.5) mEq/L Chloride 104 (98-109) mEq/L Carbon Dioxide 25 (19-29) mEq/L BUN 12 (7-20) mg/dL Creatinine 0.58 (0.57-1.11) mg/dL Glucose 82 (70-99) mg/dL Calcium 9.1 (8.6-10.8) mg/dL Adrenal panel 03/04/17 Range/Units 04:30 Sodium 138 D (136-145) mEq/L Potassium 4.0 (3.5-4.5) mEq/L Chloride 104 (98-109) mEq/L Carbon Dioxide 25 (19-29) mEq/L BUN 12 (7-20) mg/dL Creatinine 0.58 (0.57-1.11) mg/dL Glucose 82 (70-99) mg/dL Calcium 9.1 (8.6-10.8) mg/dL - VTE Documentation of Mechanical Device: Intermittent pneumatic compression device Consult Discharge Plan - Plan Additional Instructions: #1 may shower, no tub bath for 2 weeks #2 wash incisions with soap and water and pat dry daily #3 no lifting, pushing, pulling more than 15 pounds for the next 6 weeks #4 no driving until off narcotics for 24 hours and able to safely react in the car #5 may climb stairs Referrals: Rosario Bradshaw MD [Primary Care Provider] - Ruba Salgado CNP [Advanced Practice Nurse] - 03/18/17 11:30 am (Surgery follow-up) Prescriptions: Docusate [Colace] 100 mg PO BID #30 capsule OxyCODONE/APAP 5/325 [Percocet 5/325 MG] 1 each PO Q4H PRN #35 tablet PRN Reason: Pain
[2017-03-04 15:19] VITALS: BP 103/65
--- NOTE | 2017-03-04 15:45 | Discharge Summary ---
Date of Encounter: 03/04/17 Time of Encounter: 15:38 - Discharge Diagnosis (1) Small bowel obstruction Priority: Primary Status: Acute (2) Tobacco abuse Priority: Secondary Status: Chronic (3) COPD (chronic obstructive pulmonary disease) Priority: Secondary Status: Chronic Qualifiers: COPD type: unspecified COPD Qualified Code(s): J44.9 - Chronic obstructive pulmonary disease, unspecified (4) Anxiety and depression Priority: Secondary Status: Chronic - Discharge Medications Prescriptions: clonazePAM [Klonopin] 0.5 mg PO BID #30 tablet Docusate [Colace] 100 mg PO BID #30 capsule OxyCODONE/APAP 5/325 [Percocet 5/325 MG] 1 each PO Q4H PRN #35 tablet PRN Reason: Pain Home Medications: HYDROcodone/Acet 5/325 mg [[place] 5-325 mg] 1 tab PO Q4H PRN #10 tab 02/22/17 [Rx ] Ondansetron ODT [Zofran ODT] 4 mg SL Q6HR #20 tab.rapdis 02/22/17 [Rx] Albuterol Sulfate [Ventolin Hfa] 2 puff IH Q4-6H PRN 02/24/17 [History] Alendronate Sodium [Fosamax] 70 mg PO QWEEK 02/24/17 [History] Budesonide/Formoterol 160/4.5 [Symbicort 160/4.5] 1 puff IH BID 02/24/17 [ History] Calc/D3/Mag/Zn/[place] [Calcium 600 mg Plus Vit D Tab] 1 each PO DAILY 02/24/17 [History] Citalopram Hydrobromide [Citalopram HBr] 20 mg PO DAILY 02/24/17 [History] Duloxetine HCl [Cymbalta] 60 mg PO QAM 02/24/17 [History] FLUoxetine HCl [Prozac] 40 mg PO QAM 02/24/17 [History] HydrOXYzine Pamoate [Vistaril] 50 mg PO TID PRN 02/24/17 [History] Tiotropium [Spiriva] 18 mcg IH 0700 02/24/17 [History] Trazodone HCl 50 - 100 mg PO HS 02/24/17 [History] Docusate [Colace] 100 mg PO BID #30 capsule 03/04/17 [Rx] OxyCODONE/APAP 5/325 [Percocet 5/325 MG] 1 each PO Q4H PRN #35 tablet 03/04/17 [ Rx] clonazePAM [Klonopin] 0.5 mg PO BID #30 tablet 03/04/17 [Rx] Allergies/Adverse Reactions: Allergies codeine Allergy (Verified 02/24/17 14:22) Rash Penicillins Allergy (Verified 02/24/17 14:22) Rash tramadol [From Ultram] Adverse Reaction (Verified 02/24/17 14:22) See Comments Date of admission: 02/25/17 03:59 Primary care physician: Rosario Bradshaw MD Consults: 02/28/17 13:11 Consult to Nutrition [CONS] Stat Comment: tpn goal rate please Consulting Provider: NUTRITION Reason for Dietary Consult: TPN Start and Manage - Patient Status Disposition: Home, Self-Care Condition: Good Overall status at discharge: patient is progressing back to baseline - Discharge Instructions Follow Up With: Ruba Salgado OIL GAUGER [Advanced Practice Nurse] - 03/18/17 11:30 am (Surgery follow-up) Additional Instructions: Follow with primary care physician within the next 7 days. Follow with surgery within the next 7 days to remove wound howard. #1 may shower, no tub bath for 2 weeks #2 wash incisions with soap and water and pat dry daily #3 no lifting, pushing, pulling more than 15 pounds for the next 6 weeks #4 no driving until off narcotics for 24 hours and able to safely react in the car #5 may climb stairs - Diet and Activity Activity: increase activity as tolerated Diet: low fat, low cholesterol Hospital course: Ms. العراقي is a 52 year old female with PMH of COPD, osteoporosis, anxiety/ depression and history of hernia repair (by Dr. Bella 3 years ago), who presented to the ED with complaints of central abdominal pain with associated nausea/vomiting. She reported acute onset of symptoms starting on 02/22/17 and she reported to the ED at that time. It was recommended that the patient stay for treatment at that time for enteritis with PSBO. The patient decided to go home. She reported back to the ED with continued complaints of abdominal pain with nausea/vomiting. The pain was located around her central abdomen and it waxed and wained. Failed conservative medical management and underwent exploratory laparotomy with lysis of adhesions and appendectomy on 02/28/[address] Sosa. Has been improving and slowly toreratin her diet. Had bowel movements today and flatus are present. Discontinued NG tube, and tolerated diet properly. TPN was discontinued. Was re-evaluated by the surgical service and is stable to be discharged per [employer] Abdias Salgado. Printed prescriptions for colace and pain meds Time spent discussing smoking cessation with patient: 3 to 10 minutes - Time Spent with Patient Total time spent providing and/or coordinating discharge services: Greater than 30 minutes (40 min) - Constitutional Vitals: Temp Pulse Resp BP Pulse Ox 97.6 F 91 16 103/65 93 03/04/17 13:40 03/04/17 13:40 03/04/17 13:40 03/04/17 13:40 03/04/17 13:40 General appearance: Present: cachectic, A&O X 3, underweight, answers questions appropriately - Head Head exam: Present: atraumatic, normocephalic - Eye Eye exam: Present: PERRL, conjuntiva pink, sclera anicteric Pupils: Present: PERRL - Neck Neck exam general surgery: Present: supple, trachea midline. Absent: lymphadenopathy - Respiratory Respiratory exam: Present: CTAB. Absent: accessory muscle use, rales, rhonchi, wheezes - Cardiovascular Cardiovascular exam: Present: RRR, +S1, +S2. Absent: diastolic murmur, gallop, rubs, systolic murmur - GI/Abdominal GI/Abdominal exam: Present: distended (medial large 15 cm surgical wound without signs of infection ), normal bowel sounds, soft, no peritoneal signs. Absent: tenderness - Extremities Exam Extremities exam: Present: warm, radial pulses palpable and symetrical. Absent : calf tenderness, cyanotic, pedal edema - Neurological Exam Neurological exam: Present: CN II-XII intact, oriented X3, no focal deficits. Absent: pronater drift, facial droop, speech deficit - Skin Skin exam: Present: dry, intact - VTE Documentation of Mechanical Device: Intermittent pneumatic compression device
== END 2017-03-04 17:04 | disposition home or self-care (01) | DRG 336 ==
LOC: EMEROO 14:16 → 3ANU 14:16 → SUATTDRO 02-25 03:59
PROVIDERS: ADMIT Hospitalist; ATTEND Internal Medicine

== ENCOUNTER 2019-01-03 21:35 | Observation (INO) ==
[2019-01-03] MEDS ORDERED: GI Cocktail 40 ML EACH PO ONE (22:07)
[2019-01-03] MEDS ORDERED: *HR* FentaNYL (PF) 100 MCG/2 ML VIAL IVP ONE (22:07)
[2019-01-03 22:37] LABS: Basophils % 0.3 %; Eosinophils % 0.2 %; Hematocrit 33.6 % (35.3-44.9); Hemoglobin 12.2 g/dL (11.5-15.4); Immature Granulocytes % 0.3 % (0-4); Lymphocytes # 1.2 K/mcL (0.6-4.6); Lymphocytes % 13.1 %; Mean Corpuscular HGB Conc 36.3 g/dL (31.6-35.5); Mean Corpuscular Volume 85.3 fL (83.0-100.0); Mean Platelet Volume 8.6 fL (9.4-12.4); Monocytes # 0.7 K/mcL (0.0-1.3); Monocytes % 8.3 %; Platelet Count 277 K/mcL (140-400); Red Blood Count 3.94 M/mcL (3.82-4.97); Red Cell Distribution Width 12.1 % (11.5-14.5); Segmented Neutrophils % 77.8 %
[2019-01-03 22:58] LABS: BUN/Creatinine Ratio 9 (6-26); Blood Urea Nitrogen 4 mg/dL (6-20); Calcium 8.2 mg/dL (8.6-10.3); Carbon Dioxide 17 mEq/L (23-29); Chloride 89 mEq/L (98-107); Glucose 66 mg/dL (70-105); Magnesium 1.4 mg/dL (1.6-2.6); Osmolality,Calculated 245 (280-300); Potassium 3.3 mEq/L (3.5-5.1); Sodium 120 mEq/L (136-145); eGFR For Non-African Americans > 60 (> 60)
[2019-01-03] MEDS ORDERED: 0.9 % Sodium Chloride 500 ML IVC ONE (23:19)
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
[2019-01-04] MEDS ORDERED: Ipratropium/Albuterol Neb 3 ML IH PRN (02:47)
[2019-01-04] MEDS ORDERED: Famotidine 20 MG/2 ML VIAL IVP ONE (02:48)
--- NOTE | 2019-01-04 03:33 | Internal Med History&Physical ---
Date of Encounter: 01/04/19 Time of Encounter: 03:31 Internal Medicine - H&P: HPI Chief complaint: tingling Admitted From: Home Plans for Post Hospital Care: Home History of present illness: Zahira العراقي is a 53 year old woman with COPD who remains an active smoker, history of bowel resection surgery with chronic loose stool who has been admitted here on multiple occasions for electrolyte imbalances, discharged from here a week ago after management for hyponatremia. She presents to the emergency room complaining of lower extremity numbness and tingling as well as back pain that is spastic commenced earlier in the day. She also reported having difficulty voiding urine even though she had the sensation to do so which is a new occurrence for her. In the ER she was seen hemodynamically stable. Lumbar spine MRI was done revealing multilevel degenerative disc disease in no focal anomalies. Her labs were revealing of a serum sodium of 120, potassium 3.3, chloride 89, calcium 8.2 and magnesium 1.4. She is now admitted for further care. She reports adequate by mouth intake and does not know why her sodium frequently gets low noting that she was discharged just a week ago with normal levels. Although she acknowledges having loose stool she says this has been a chronic issue since her abdominal surgeries years ago and is intermittent. She offers no other complaints other than her tingling and back pain. Past Med Surg Social Fam HX - Past Medical History Medical history: COPD, GERD, osteoporosis Additional medical history: emphysema Psychiatric history: anxiety, depression - Past Surgical History Surgical History: herniorrhaphy Additional surgical history: ventral hernia repair. partial colectomy - Social History Smoking Status: Current every day smoker Smokeless Tobacco Status: No Alcohol use: none Drug use: none - Family History Grandfather Living Status: Hx Family Cancer: Yes Internal Medicine - H&P: Meds Alendronate Sodium [Fosamax] 70 mg PO FR 02/24/17 [History] Budesonide/Formoterol 160/4.5 [Symbicort 160/4.5] 2 puff IH BID 02/24/17 [History] Calc/D3/Mag/Zn/[place] [Calcium 600 mg Plus Vit D Tab] 1 tab PO BID 02/24/17 [History] Tiotropium [Spiriva] 18 mcg IH 0700 02/24/17 [History] DULoxetine [Cymbalta] 20 mg PO DAILY 12/23/18 [History] Ipratropium/Albuterol Neb [Duoneb] 3 ml IH Q6HR 12/23/18 [History] LORazepam [Ativan] 1 mg PO BID PRN 12/23/18 [History] Quetiapine Fumarate [Seroquel] 300 mg PO HS 12/23/18 [History] Albuterol Sulfate [Ventolin Hfa] 2 puff IH Q4-6H PRN #2 bottle 12/27/18 [Rx] Dexamethasone [Decadron] 4 mg PO DAILY 14 Days #14 tablet 12/27/18 [Rx] Omeprazole [PriLOSEC] 20 mg PO DAILY@0630 30 Days #30 capsule. 12/27/18 [Rx] Allergy/AdvReac Type Severity Reaction Status Date / Time Penicillins Allergy Hives Verified 12/23/18 22:29 Tizanidine [From Zanaflex] Allergy See Verified 12/23/18 22:29 Comments clonazepam [From Klonopin] AdvReac Joint Pain Verified 12/23/18 22:29 codeine AdvReac Rash Verified 12/23/18 22:29 methocarbamol [From Robaxin] AdvReac See Verified 12/23/18 22:29 Comments tramadol [From Ultram] AdvReac See Verified 12/23/18 22:29 Comments All Systems PM: A 10-system review of systems was performed and is negative for pertinent findings except as documented above in the HPI. - Constitutional Vitals: Temp Pulse Resp BP Pulse Ox 97.7 F 72 18 116/70 97 01/04/19 03:23 01/04/19 03:23 01/04/19 03:23 01/04/19 03:23 01/04/19 03:23 Exam: Vitals: Reviewed General: NAD Skin: Dry, warm HEENT: Dry mucous membranes. No conjunctivae pallor. Neck: No lymphadenopathy. No JVD. No carotid bruits. No palpable thyroid. Chest: Normal thoracic expansion. Normal breath sounds. Clear to auscultation. Heart: Normal S1 & S2; rhythmic. No rubs or murmurs. Abdomen: Mildly distended, soft and non-tender to palpation. No peritoneal reaction. Extremities: No clubbing, cyanosis or edema. No calf tenderness. Normal distal pulses. Neurological: Awake, alert and oriented to person, place and time. No focal deficits. Psych: Affect appropriate. Internal Med - H&P Results - Labs CBC & Chem 7: 01/03/19 22:22 01/04/19 03:07 Labs: Short CBC 01/03/19 Range/Units 22:22 WBC 9.0 (4.3-11.1) K/mcL Hgb 12.2 (11.5-15.4) g/dL Hct 33.6 L (35.3-44.9) % Plt Count 277 (140-400) K/mcL Neutrophils # 7.0 (1.6-8.9) K/mcL BMP 01/03/19 22:22 Sodium 120 L* Potassium 3.3 L Chloride 89 L Carbon Dioxide 17 L BUN 4 L Creatinine 0.43 L Glucose 66 L Calcium 8.2 L - Impressions ITS Impressions Lumbar Spine MRI 01/03/19 22:06 IMPRESSION: Multilevel degenerative disc disease throughout the lumbar spine as described. See above for details of each level D/ / Ramy Lisa / Ramy Lisa Interpreting Provider: Ramy Lisa - Assessment and Plan (1) Electrolyte imbalance Current Visit: Yes Status: Acute Assessment and plan: The etiology of these recurring abnormalities is unclear. There appears to be a component of adrenal insufficiency and/or SIADH to a certain degree. Unlikely that is solely secondary to GI losses especially noting that it is not profuse. 40mEq of KCL has been given as well as 1gr MgSO4. Will repeat bmp before resumi ng IVF to ascertain the effect of the 0.9% on her level. Will continue if moving in the right direction with the goal of 6-8mEq increase/daily. She will benefit from nephrology consultation for ongoing assistance. (2) Numbness and tingling of both lower extremities Current Visit: Yes Status: Acute Assessment and plan: Appears to be related to her marked electrolyte anomalies. Will continue to monitor her symptoms. (3) Anxiety and depression Current Visit: Yes Status: Chronic Assessment and plan: Will hold all anxiolytic/neuroleptic medications for now in the setting of hyponatremia as these are contributory factors. (4) COPD (chronic obstructive pulmonary disease) Current Visit: Yes Status: Chronic Assessment and plan: Currently asymptomatic. Will place on LABA/ICS and PRATEEK prn. Qualifiers: COPD type: unspecified COPD Qualified Code(s): J44.9 - Chronic obstructive pulmonary disease, unspecified (5) GERD (gastroesophageal reflux disease) Current Visit: Yes Status: Acute Assessment and plan: Will provide symptomatic relief measures. Qualifiers: Esophagitis presence: with esophagitis Qualified Code(s): K21.0 - Gastro- esophageal reflux disease with esophagitis (6) Tobacco abuse Current Visit: Yes Status: Chronic Assessment and plan: 5 minutes were spent counseling and educating the patient on this habit. fitness services manager and resources were made available. (7) DVT prophylaxis Current Visit: Yes Status: Acute Assessment and plan: SubQ heparin ordered. - Time Spent With Patient Total time spent is greater than 50% in coordination of care (as documented) at patient's floor/unit and/or counseling patient: Greater than 35 minutes
[2019-01-04 03:41] LABS: BUN/Creatinine Ratio 8 (6-26); Blood Urea Nitrogen 4 mg/dL (6-20); Calcium 8.7 mg/dL (8.6-10.3); Carbon Dioxide 19 mEq/L (23-29); Chloride 98 mEq/L (98-107); Glucose 89 mg/dL (70-105); Osmolality,Calculated 268 (280-300); Potassium 3.9 mEq/L (3.5-5.1); Sodium 131 mEq/L (136-145); eGFR For Non-African Americans > 60 (> 60)
--- NOTE | 2019-01-04 04:09 | Event Note ---
Date of Encounter: 01/04/19 Time of Encounter: 04:06 Noted to have an increase in her sodium to 131 from 120 after the fluid bolus administered in the ER. She is clinically stable. Will not order any more fluids for now but will continue to check BMP q4hrs.
[2019-01-04] MEDS: *HR* Heparin 5,000 UNIT/ML VIAL SQ SCH ×2 (05:44→17:56)
[2019-01-04] MEDS: Budesonide/Formoterol 160/4.5 1 PUFF INH IH SCH ×2 (07:59→19:40)
[2019-01-04] MEDS: Tiotropium 18 MCG inhalation IH SCH (08:00)
[2019-01-04 09:29] LABS: BUN/Creatinine Ratio 9 (6-26); Blood Urea Nitrogen 4 mg/dL (6-20); Calcium 8.7 mg/dL (8.6-10.3); Carbon Dioxide 19 mEq/L (23-29); Chloride 106 mEq/L (98-107); Glucose 79 mg/dL (70-105); Magnesium 2.2 mg/dL (1.6-2.6); Osmolality,Calculated 274 (280-300); Phosphorous 2.5 mg/dL (2.7-4.5); Potassium 4.1 mEq/L (3.5-5.1); Sodium 134 mEq/L (136-145); eGFR For Non-African Americans > 60 (> 60)
[2019-01-04] MEDS ORDERED: D5% in Water 1,000 ML IVC SCH (10:45)
[2019-01-04] MEDS: Nicotine 21 MG PATCH.TD24 TD SCH (11:19)
--- NOTE | 2019-01-04 12:13 | Event Note ---
Date of Encounter: 01/04/19 Time of Encounter: 08:30 H&P reviewed. Patient with history of COPD, multiple bowel surgeries with chronic diarrhea, and depression, was admitted overnight due to hyponatremia of 120. Was recently admitted for the same issue and discharged home on 12/27 with PO Dexamethasone due to the concern of adrenal insufficiency which she never filled. Exam is non-focal with no focal neurological deficits noted. Sodium trend noted, 120 - 131 - 134 after 500ml of NS. Will start D5W in view of rapid correction and continue to monitor BMP Q4. Restart SSRI in half doses as it could complicate in SIADH as well.
[2019-01-04] MEDS: FLUoxetine 20 MG CAPSULE PO SCH (13:58)
[2019-01-04 14:42] LABS: Bilirubin,Urine Negative (Negative); Blood,Urine Small (Negative); Clarity,Urine Clear (Clear); Color,Urine Yellow (Yellow); Glucose,Urine (UA) Normal (Normal); Ketones,Urine 15 mg/dL (Negative); Leukocyte Esterase,Urine Negative (Negative); Nitrite,Urine Negative (Negative); Protein,Urine Trace mg/dL (Neg-Trace); Specific Gravity,Urine 1.012 (1.010-1.025); Urobilinogen,Urine Normal (Normal)
[2019-01-04 14:44] LABS: Bacteria,Urine None Seen per hpf (None-Few); Hyaline Casts,Urine None Seen per lpf (None-Few); Squamous Epithelial Cell,Urine Moderate per lpf (None-Few); WBC,Urine 0-3 per hpf (0-3)
[2019-01-04] MEDS ORDERED: *HR* LORazepam 1 MG TABLET PO PRN (16:42)
[2019-01-04 17:18] LABS: BUN/Creatinine Ratio 8 (6-26); Blood Urea Nitrogen 4 mg/dL (6-20); Calcium 8.7 mg/dL (8.6-10.3); Carbon Dioxide 20 mEq/L (23-29); Chloride 95 mEq/L (98-107); Glucose 141 mg/dL (70-105); Osmolality,Calculated 253 (280-300); Potassium 4.2 mEq/L (3.5-5.1); Sodium 122 mEq/L (136-145); eGFR For Non-African Americans > 60 (> 60)
[2019-01-04 21:18] LABS: BUN/Creatinine Ratio 8 (6-26); Blood Urea Nitrogen 4 mg/dL (6-20); Calcium 8.6 mg/dL (8.6-10.3); Carbon Dioxide 23 mEq/L (23-29); Chloride 94 mEq/L (98-107); Glucose 161 mg/dL (70-105); Osmolality,Calculated 258 (280-300); Potassium 3.6 mEq/L (3.5-5.1); Sodium 124 mEq/L (136-145); eGFR For Non-African Americans > 60 (> 60)
[2019-01-05 01:50] LABS: BUN/Creatinine Ratio 9 (6-26); Blood Urea Nitrogen 4 mg/dL (6-20); Calcium 8.8 mg/dL (8.6-10.3); Carbon Dioxide 22 mEq/L (23-29); Chloride 96 mEq/L (98-107); Glucose 144 mg/dL (70-105); Osmolality,Calculated 259 (280-300); Potassium 3.4 mEq/L (3.5-5.1); Sodium 125 mEq/L (136-145); eGFR For Non-African Americans > 60 (> 60)
--- NOTE | 2019-01-05 02:46 | Event Note ---
Date of Encounter: 01/04/19 Time of Encounter: 21:27 Alerted by pts. nurse Yamileth RN that pt. had Na checks ordered Q4HR. Na at the time was 124. No IV fluids ordered, so nurse instructed that Na mEq should not rise more than 8 mEq in 24 hour period. Next check at 00:28 was 125. Recheck due at 04:00. Will continue to monitor. Nurse instructed to continue monitoring pt. closely and notify me immediately of any adverse changes. Cardiac monitoring ordered.
[2019-01-05 05:26] LABS: BUN/Creatinine Ratio 8 (6-26); Blood Urea Nitrogen 3 mg/dL (6-20); Calcium 8.8 mg/dL (8.6-10.3); Carbon Dioxide 24 mEq/L (23-29); Chloride 98 mEq/L (98-107); Glucose 90 mg/dL (70-105); Osmolality,Calculated 262 (280-300); Potassium 3.2 mEq/L (3.5-5.1); Sodium 128 mEq/L (136-145); eGFR For Non-African Americans > 60 (> 60)
[2019-01-05] MEDS: *HR* Heparin 5,000 UNIT/ML VIAL SQ SCH (05:41)
[2019-01-05] MEDS: Tiotropium 18 MCG inhalation IH SCH (08:01)
[2019-01-05] MEDS: Budesonide/Formoterol 160/4.5 1 PUFF INH IH SCH ×2 (08:02→20:02)
[2019-01-05] MEDS: Nicotine 21 MG PATCH.TD24 TD SCH (08:59)
[2019-01-05] MEDS: FLUoxetine 20 MG CAPSULE PO SCH (09:00)
--- NOTE | 2019-01-05 12:33 | Internal Med Progress Note ---
Hospitalist Progress Note - Encounter Date of Encounter: 01/05/19 Time of Encounter: 09:15 - Subjective Interval History: No acute events overnight. Sodium increased to 128 (was 120 on presentation). Denies any N/V, fever/chills or worsening diarrhea. Mood is stable. - Exam Vitals: Temp Pulse Resp BP Pulse Ox 98.3 F 75 15 137/83 99 01/05/19 11:22 01/05/19 11:22 01/05/19 11:22 01/05/19 11:22 01/05/19 11:22 Exam: Vitals: Reviewed General: NAD Chest: Normal thoracic expansion. Normal breath sounds. Clear to auscultation. Heart: Normal S1 & S2; rhythmic. No rubs or murmurs. Abdomen: soft, non-tender Neurological: Awake, alert and oriented to person, place and time. No focal deficits. Psych: Affect appropriate. - Assessment and Plan (1) Hyponatremia Current Visit: Yes Status: Acute Assessment and Plan: Admitted on 01/03 due to hyponatremia of 120. Was recently here for the same issue and discharged home on 12/27 with PO Dexamethasone due to the concern of adrenal insufficiency which she never filled. Dexamethasone was started again also has 2 SSRIs for antidepressants, SIADH is a reasonable possibility. They were restarted at half doses to avoid abrupt withdrawal Sodium trend noted, 120 - 131 - 134 after which D5W was started. It was later discontinued after sodium dropped back down to 122. Currently at 128 without any IVF monitor BMP Q12 (2) Hypokalemia Current Visit: Yes Status: Acute Assessment and Plan: replete and monitor (3) COPD (chronic obstructive pulmonary disease) Current Visit: Yes Status: Chronic Assessment and Plan: not in exacerbation. Continue LABA/ICS and PRATEEK prn. (4) Anxiety and depression Current Visit: Yes Status: Chronic Assessment and Plan: SSRIs resumed at half doses for close follow up with outpatient psychiatry next week (5) GERD (gastroesophageal reflux disease) Current Visit: Yes Status: Chronic Assessment and Plan: resume home meds (6) Tobacco abuse Current Visit: Yes Status: Chronic Assessment and Plan: smoking cessation emphasized NRT (7) DVT prophylaxis Current Visit: Yes Status: Acute Assessment and Plan: SQ heparin - Time Spent with Patient Total time spent is greater than 50% in coordination of care (as documented) at patient's floor/unit and/or counseling patient: 25 - 35 minutes Plan of Care Discussed with: patient Internal Medicine: Result - Labs CBC & Chem 7: 01/03/19 22:22 01/05/19 04:33 Labs: BMP 01/04/19 01/04/19 01/05/19 16:17 20:21 00:28 Sodium 122 L D 124 L 125 L Potassium 4.2 3.6 3.4 L Chloride 95 L 94 L 96 L Carbon Dioxide 20 L 23 22 L BUN 4 L 4 L 4 L Creatinine 0.50 L 0.48 L 0.43 L Glucose 141 H 161 H 144 H Calcium 8.7 8.6 8.8 01/05/19 04:33 Sodium 128 L Potassium 3.2 L Chloride 98 Carbon Dioxide 24 BUN 3 L Creatinine 0.40 L Glucose 90 Calcium 8.8 Urine 01/04/19 Range/Units 14:20 Urine Color Yellow (Yellow) Urine Clarity Clear (Clear) Urine pH 6.0 (5.0-8.0) pH Units Ur Specific [place] 1.012 (1.010-1.025) Urine Protein Trace (Neg-Trace) mg/dL Urine Glucose (UA) Normal (Normal) mg/dL Consult Discharge Plan - Plan Referrals: Steve Figueroa MD [Primary Care Provider] - (3) COPD (chronic obstructive pulmonary disease) Qualifiers: COPD type: unspecified COPD Qualified Code(s): J44.9 - Chronic obstructive pulmonary disease, unspecified (5) GERD (gastroesophageal reflux disease) Qualifiers: Esophagitis presence: with esophagitis Qualified Code(s): K21.0 - Gastro- esophageal reflux disease with esophagitis
[2019-01-05 16:06] LABS: BUN/Creatinine Ratio 4 (6-26); Blood Urea Nitrogen 2 mg/dL (6-20); Calcium 8.7 mg/dL (8.6-10.3); Carbon Dioxide 24 mEq/L (23-29); Chloride 92 mEq/L (98-107); Glucose 196 mg/dL (70-105); Osmolality,Calculated 254 (280-300); Potassium 4.2 mEq/L (3.5-5.1); Sodium 121 mEq/L (136-145); eGFR For Non-African Americans > 60 (> 60)
[2019-01-05] MEDS ORDERED: 0.45 % Sodium Chloride w/KCl 20 MEQ/1,000 ML MLS IVC SCH (16:30)
[2019-01-05 23:11] LABS: BUN/Creatinine Ratio 5 (6-26); Blood Urea Nitrogen 2 mg/dL (6-20); Calcium 8.9 mg/dL (8.6-10.3); Carbon Dioxide 24 mEq/L (23-29); Chloride 92 mEq/L (98-107); Glucose 93 mg/dL (70-105); Osmolality,Calculated 250 (280-300); Potassium 3.5 mEq/L (3.5-5.1); Sodium 122 mEq/L (136-145); eGFR For Non-African Americans > 60 (> 60)
[2019-01-06] MEDS: *HR* Heparin 5,000 UNIT/ML VIAL SQ SCH ×3 (05:05→16:37)
[2019-01-06 05:41] LABS: BUN/Creatinine Ratio 5 (6-26); Blood Urea Nitrogen 2 mg/dL (6-20); Calcium 8.7 mg/dL (8.6-10.3); Carbon Dioxide 24 mEq/L (23-29); Chloride 95 mEq/L (98-107); Glucose 85 mg/dL (70-105); Osmolality,Calculated 255 (280-300); Potassium 3.4 mEq/L (3.5-5.1); Sodium 125 mEq/L (136-145); eGFR For Non-African Americans > 60 (> 60)
[2019-01-06] MEDS: Nicotine 21 MG PATCH.TD24 TD SCH (07:59)
[2019-01-06] MEDS: FLUoxetine 20 MG CAPSULE PO SCH (08:00)
[2019-01-06] MEDS: Budesonide/Formoterol 160/4.5 1 PUFF INH IH SCH ×2 (09:40→20:21)
[2019-01-06] MEDS: Tiotropium 18 MCG inhalation IH SCH (09:41)
--- NOTE | 2019-01-06 11:16 | Consult Note ---
Addendum entered and electronically signed by Narcisa Parker 01/06/19 12:21: Patient later reported to attending that she would per to be on Cymbalta than the Prozac. Thus please see the updated recommendations below: Assessment & Recommendation: -It is not common practice nor suggested to concurrently use an SSRI and an SNRI due to several interactions that could increase risk for many disorders, including serotonin syndrome and hyponatremia. As such, we recommend discontinuing fluoxetine at this time. -Recommend continuing Cymbalta, per patient's preference -Bupropion was also discussed with patient as a possible augmentation agent for mood and anxiety. We did not necessarily recommend starting this medication at this time. However if patient feels that the Cymbalta is not covering her mood, Wellbutrin may be a possible and appropriate agent to start -Recommend discontinuing quetiapine, as she has not taken it in months -Would recommend discontinuing lorazepam, as she finds no benefit from the medication. May consider a extended taper if patient experiences withdrawal symptoms -Recommend referring to outpatient psychiatric and counseling services, which patient has agreed to. Note that Worker's Compensation may need to be worked with for this care -Will sign off at this time. Please let us know if you have any other concerns or questions about this patient. Thank you for the consult. Original Note: Date of Encounter: 01/06/19 Time of Encounter: 09:30 Assessment & Recommendation (1) Major depressive disorder, recurrent episode, moderate with anxious distress Current visit: Yes Status: Acute Assessment & Recommendation: -It is not common practice nor suggested to concurrently use an SSRI and an SNRI due to several interactions that could increase risk for many disorders, including serotonin syndrome and hyponatremia. As such, we recommend discontinuing duloxetine at this time. -Recommend continuing Prozac, as this appears to have been the most benefit to patient. Would recommend increasing to 60 mg by mouth daily for mood, as duloxetine is being discontinued -Recommend discontinuing quetiapine, as she has not taken it in months -Would recommend discontinuing lorazepam, as she finds no benefit from the medication. May consider a extended taper if patient experiences withdrawal symptoms -Recommend referring to outpatient psychiatric and counseling services, which patient has agreed to. Note that Worker's Compensation may need to be worked with for this care -Will sign off at this time. Please let us know if you have any other concerns or questions about this patient. Thank you for the consult. History of Present Illness Patient: new to practice Requesting Physician: Brenden Chou MD Reason for consult: Medication recommendation History of present illness: Ms. العراقي is a 53 year old female with past psychiatric history of depression and anxiety who was admitted on 01/04/2019 for hyponatremia and back pain. Patient's sodium is being slowly corrected. There was concern about her psychiatric medication causing hyponatremia, as she is on both an SSRI and an SNRI. Thus, psychiatry was consulted. Patient was seen in the room with medical student and patient's . Shelbi ramirez's dominated the conversation. He reports that the patient "has fears mood swings," where she will be okay 1 minute and then will be angry and accusatory with paranoia the next. Patient reports that fluoxetine has been helpful for her. She reports that she has never noticed the duloxetine assisting with her mood. However, patient's reports that when she was taken off duloxetine, her family reported worsening mood swings. She also reports that her anti-anxiolytics have been unhelpful, including lorazepam. She reports that she is not taking quetiapine in "months." She reports "so-so" depression today. She reportedly words situational depression yesterday that was "bad," being mostly due to pain, headache, and leg issues. She denies issues with depression today. She reports that she does not have a "big appetite." She explains that she has had chronic issues with sleep, stating that ever since the surgery 2 years ago, she will be up all night and sleep during the early and late morning. She also reports drinking a 24 pack of diet Pepsi a day. She claims that she used to go to a therapist which was beneficial but that therapist moved. She is open to seeing psychiatric and counseling care. Currently receives her medications from a worker's compensation doctor in [place]. She denies other side effects to medication. She denies SI, HI, AH, and VH. CC: Brenden Chou MD Past Med Surg Social Fam HX - Past Medical History Source: patient Medical history: COPD, GERD, osteoporosis - Past Psychiatric History Psychiatric history: Reports: anxiety, depression Family psychiatric history: Unknown Family History of Suicide: Unknown - Past Surgical History Surgical History: herniorrhaphy - Social History Smoking Status: Current every day smoker Smokeless Tobacco Status: No Alcohol use: none Drug use: none Occupational status: other Current living situation: Home Activity Level: Other (Not assessed) - Family History Grandfather Living Status: Hx Family Cancer: Yes Medications & Allergies Alendronate Sodium [Fosamax] 70 mg PO FR 02/24/17 [History] Budesonide/Formoterol 160/4.5 [Symbicort 160/4.5] 2 puff IH BID 02/24/17 [History] Calc/D3/Mag/Zn/[place]eth[place] [Calcium 600 mg Plus Vit D Tab] 1 tab PO BID 01/08 [History] Tiotropium [Spiriva] 18 mcg IH 0700 02/24/17 [History] DULoxetine [Cymbalta] 60 mg PO DAILY 12/23/18 [History] Ipratropium/Albuterol Neb [Duoneb] 3 ml IH Q6HR 12/23/18 [History] LORazepam [Ativan] 1 mg PO BID PRN 12/23/18 [History] Quetiapine Fumarate [Seroquel] 300 mg PO HS 12/23/18 [History] Albuterol Sulfate [Ventolin Hfa] 2 puff IH Q4-6H PRN #2 bottle 12/27/18 [Rx] Dexamethasone [Decadron] 4 mg PO DAILY 14 Days #14 tablet 12/27/18 [Rx] Omeprazole [PriLOSEC] 20 mg PO DAILY@0630 30 Days #30 capsule. 12/27/18 [Rx] FLUoxetine HCl [Fluoxetine HCl] 40 mg PO DAILY 01/04/19 [History] Allergy/AdvReac Type Severity Reaction Status Date / Time Penicillins Allergy Hives Verified 12/23/18 22:29 Tizanidine [From Zanaflex] Allergy See Verified 12/23/18 22:29 Comments clonazepam [From Klonopin] AdvReac Joint Pain Verified 12/23/18 22:29 codeine AdvReac Rash Verified 12/23/18 22:29 methocarbamol [From Robaxin] AdvReac See Verified 12/23/18 22:29 Comments tramadol [From Ultram] AdvReac See Verified 12/23/18 22:29 Comments Review of Systems Musculoskeletal: Reports: back pain Psychiatric: Reports: depression, abnormal sleep pattern, change in appetite, mood swings. Denies: anxiety, suicidal ideation, homicidal ideation, auditory hallucinations, visual hallucinations Psychiatry Exam - Constitutional Vitals: Temp Pulse Resp BP Pulse Ox 97.6 F 94 16 112/64 95 01/06/19 10:27 01/06/19 10:27 01/06/19 10:27 01/06/19 10:27 01/06/19 10:27 General appearance: age & developmentally appropriate, well-groomed, well- nourished, thin (Not unhealthfully so) Additional observations: Seen in bed, covered to the neck with blankets. - Musculoskeletal Gait: other (Not assessed) Station: relaxed Strength & Tone: normal for patient (Grossly) - Psychiatric Patient Orientation: Yes Person, Yes Time, Yes Place, Yes Circumstance Level of alertness: Alert, Follows commands Behavior: calm, cooperative Psychomotor activity: Normal Eye Contact: Maintains Eye Contact Mood Description: Euthymic/stable Patient description of mood: "Okay" Affect description: congruent with mood, full range Speech Volume: Normal Speech pattern: normal rate, normal rhythm, normal tone, fluent, spontaneous Language & Vocabulary: consistent with education Thought Process: Logical, Linear, Goal Oriented Thought Content: No Suicidal ideation, No Homicidal ideation, No Overt delusions Perceptual Disturbances: No Reacting to internal stimuli, No Auditory hallucinations, No Visual hallucinations Attention Span Ability: Capable of Focused Attention Memory Description: Grossly Intact Patient Reliability: Reliable Historian Fund of knowledge: Yes abstraction ability, Yes aware of current events Intelligence Estimate: Average Judgment: Fair Insight: Partial Results - Drug Levels and Toxicology Drug Levels and Toxicology: None noted this a.m. - Labs Labs: Laboratory Last Values WBC 9.0 K/mcL (4.3-11.1) 01/03/19 22:22 RBC 3.94 M/mcL (3.82-4.97) 01/03/19 22:22 Hgb 12.2 g/dL (11.5-15.4) 01/03/19 22:22 Hct 33.6 % (35.3-44.9) L 01/03/19 22:22 MCV 85.3 fL (83.0-100.0) 01/03/19 22:22 MCH 31.0 pg (28.0-33.3) 01/03/19 22:22 MCHC 36.3 g/dL (31.6-35.5) H 01/03/19 22:22 RDW 12.1 % (11.5-14.5) 01/03/19 22:22 Plt Count 277 K/mcL (140-400) 01/03/19 22:22 MPV 8.6 fL (9.4-12.4) L 01/03/19 22:22 Immature Gran % 0.3 % (0-4) 01/03/19 22: Seg Neutrophils % 77.8 % 01/03/19 22: Lymphocytes % 13.1 % 01/03/19 22:22 Monocytes % 8.3 % 01/03/19 22: Eosinophils % 0.2 % 01/03/19 22: Basophils % 0.3 % 01/03/19 22:22 Neutrophils # 7.0 K/mcL (1.6-8.9) 01/03/19 22: Lymphocytes # 1.2 K/mcL (0.6-4.6) 01/03/19 22:22 Monocytes # 0.7 K/mcL (0.0-1.3) 01/03/19 22:22 Eosinophils # 0.0 K/mcL (0.0-0.6) 01/03/19 22: Basophils # 0.0 K/mcL (0.0-0.2) 01/03/19 22:22 Sodium 125 mEq/L (136-145) L 01/06/19 04:07 Potassium 3.4 mEq/L (3.5-5.1) L 01/06/19 04:07 Chloride 95 mEq/L (98-107) L 01/06/19 04:07 Carbon Dioxide 24 mEq/L (23-29) 01/06/19 04:07 BUN 2 mg/dL (6-20) L 01/06/19 04:07 Creatinine 0.39 mg/dL (0.60-1.20) L 01/06/19 04:07 Est GFR ( Amer) > 60 (> 60) 01/06/19 04:07 Est GFR (Non-Af Amer) > 60 (> 60) 01/06/19 04:07 BUN/Creatinine Ratio 5 (6-26) L 01/06/19 04:07 Glucose 85 mg/dL (70-105) 01/06/19 04:07 Serum Osmolality 253 mOsm/kg (280-300) L 01/05/19 16:46 Calculated Osmolality 255 (280-300) L 01/06/19 04:07 Calcium 8.7 mg/dL (8.6-10.3) 01/06/19 04:07 Phosphorus 2.5 mg/dL (2.7-4.5) L 01/04/19 08:42 Magnesium 1.7 mg/dL (1.6-2.6) 01/06/19 04:07 Urine Color Yellow (Yellow) 01/04/19 14:20 Urine Clarity Clear (Clear) 01/04/19 14:20 Urine pH 6.0 pH Units (5.0-8.0) 01/04/19 14:20 Ur Specific [place] 1.012 (1.010-1.025) 01/04/19 14:20 Urine Protein Trace mg/dL (Neg-Trace) 01/04/19 14:20 Urine Glucose (UA) Normal mg/dL (Normal) 01/04/19 14:20 Urine Ketones 15 mg/dL (Negative) H 01/04/19 14:20 Urine Blood Small (Negative) H 01/04/19 14:20 Urine Nitrite Negative (Negative) 01/04/19 14:20 Urine Bilirubin Negative (Negative) 01/04/19 14:20 Urine Urobilinogen Normal mg/dL (Normal) 01/04/19 14:20 Ur Leukocyte Esterase Negative (Negative) 01/04/19 14:20 Urine Microscopic RBC 5-15 per hpf (0-3) H 01/04/19 14:20 Urine Microscopic WBC 0-3 per hpf (0-3) 01/04/19 14:20 Ur Squamous Epith Cells Moderate per lpf (None-Few) H 01/04/19 14:20 Urine Bacteria None Seen per hpf (None-Few) 01/04/19 14:20 Hyaline Casts None Seen per lpf (None-Few) 01/04/19 14:20 Urine Osmolality 49 mOsm/kg (300-1090) L 01/05/19 17:12 Urine Sodium 14.0 mEq/L 01/05/19 17:12 - Impressions None noted this a.m. Consult Discharge Plan - Plan Referrals: Steve Figueroa MD [Primary Care Provider] - - Attending Attestation I examined this patient and my medical decision-making was reviewed with the Resident Physician. I agree with the documented findings, disposition and treatment plan as described except to the extent set forth below. Client pleasant when speaking with this newswriter. She denied current or past SI/HI/AH/VH. Admits to long standing depression and anxiety that have benefitted from Prozac and Cymbalta. However, would not recommend these agents be used together due to the risk of serotonin syndrome. The combination could be worsening hyponatremia as well. This was discussed with client and her preference would be to stay on the Cymbalta for now and discontinue the Prozac. If she continues to be hyponatremic with just the Cymbalta can look at an antidepressant in a different drug class like Wellbutrin. Most psych meds can contribute to hyponatremia but if she needs to stay on an antidepressant to help with mood then she may ultimately tolerate the Wellbutrin better. Call with any questions.
--- NOTE | 2019-01-06 13:08 | Nephrology Consult Note ---
Date of Encounter: 01/06/19 Time of Encounter: 12:10 Assessment and Plan (1) Hyponatremia Current Visit: Yes Status: Acute Euvolemic on exam, but very low urine osmolality Na improving, up to 125. 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 We will continue to follow (2) Hypokalemia Current Visit: Yes Status: Acute Potassium 3.4 - recommend PO replacement (3) Anxiety and depression Current Visit: Yes Status: Chronic per psychiatry History of Present Illness - Reason for Consult Consult date: 01/05/19 hyponatremia Requesting physician: Brenden Chou - Chief Complaint Hyponatremia - History of Present Illness Ms. العراقي is a 53 yo WF admitted with hyponatremia. PMH includes COPD, back pain, osteoporosis, anxiety, depression, and hx of bowel resection with chronic loose stool. She presented with lower extremity numbness and tingling, but found to have a sodium of 120. She was recently discharged from the hospital with hyponatremia, and was given dexamethasone for suspected adrenal insufficiency. However she never got the dexamethasone prescription filled. She reports that she drinks several cans of soda per day, and also drinks lots of water each day. She denies new medications, states she has been taking them as prescribed. She reports chronic loose stools, and this has not changed recently. Per chart review it appears that hyponatremia is a chronic issue for her. She denies other symptoms. Denies confusion, dizziness, dyspnea, nausea, vomiting, abdominal pain, dysuria, or lower extremity edema. FH includes grandparents with kidney problems. Past Med Surg Social Fam HX - Past Medical History Medical history: COPD, GERD, osteoporosis Additional medical history: emphysema Psychiatric history: anxiety, depression - Past Surgical History Surgical History: herniorrhaphy Additional surgical history: ventral hernia repair. partial colectomy - Social History Smoking Status: Current every day smoker Smokeless Tobacco Status: No Alcohol use: none Drug use: none - Family History Grandfather Living Status: Hx Family Cancer: Yes Medications and Allergies Alendronate Sodium [Fosamax] 70 mg PO FR 02/24/17 [History] Budesonide/Formoterol 160/4.5 [Symbicort 160/4.5] 2 puff IH BID 02/24/17 [History] Calc/D3/Mag/Zn/Shwetha/[place] [Calcium 600 mg Plus Vit D Tab] 1 tab PO BID 02/24/17 [History] Tiotropium [Spiriva] 18 mcg IH 0700 02/24/17 [History] DULoxetine [Cymbalta] 60 mg PO DAILY 12/23/18 [History] Ipratropium/Albuterol Neb [Duoneb] 3 ml IH Q6HR 12/23/18 [History] LORazepam [Ativan] 1 mg PO BID PRN 12/23/18 [History] Quetiapine Fumarate [Seroquel] 300 mg PO HS 12/23/18 [History] Albuterol Sulfate [Ventolin Hfa] 2 puff IH Q4-6H PRN #2 bottle 12/27/18 [Rx] Dexamethasone [Decadron] 4 mg PO DAILY 14 Days #14 tablet 12/27/18 [Rx] Omeprazole [PriLOSEC] 20 mg PO DAILY@0630 30 Days #30 capsule. 12/27/18 [Rx] FLUoxetine HCl [Fluoxetine HCl] 40 mg PO DAILY 01/04/19 [History] Allergy/AdvReac Type Severity Reaction Status Date / Time Penicillins Allergy Hives Verified 12/23/18 22:29 Tizanidine [From Zanaflex] Allergy See Verified 12/23/18 22:29 Comments clonazepam [From Klonopin] AdvReac Joint Pain Verified 12/23/18 22:29 codeine AdvReac Rash Verified 12/23/18 22:29 methocarbamol [From Robaxin] AdvReac See Verified 12/23/18 22:29 Comments tramadol [From Ultram] AdvReac See Verified 12/23/18 22:29 Comments Review of Systems All Systems: reviewed and no additional remarkable complaints except as stated Exam - Vital Signs Vital signs: Initial Vital Signs Temp Pulse Resp BP Pulse Ox 98.5 F 106 20 177/85 99 01/03/19 21:41 01/03/19 21:41 01/03/19 21:41 01/03/19 21:41 01/03/19 21:41 Vital Signs - Last 8 Hours Temp Pulse Resp BP Pulse Ox 01/06/19 10:27 97.6 F 94 16 112/64 95 01/06/19 09:43 16 95 01/06/19 07:01 98.9 F 79 16 134/75 95 Intake and Output 01/05/19 01/06/19 01/06/19 23:59 07:59 15:59 Intake Total 1040 / 1040 120 / 120 Output Total 5200 / 5200 2700 / 2700 1550 / 1550 Balance -4160 / -4160 -2700 / -2700 -1430 / -1430 Intake: Oral 1040 / 1040 120 / 120 Output: Urine 1450 / 1450 Catheter 3750 / 3750 2700 / 2700 1550 / 1550 Other: Meal Dinner Breakfast Percent of Meal Consumed 100% 50% Weight 46.8 kg Patient Weight 01/06/19 23:59 Weight 46.8 kg - General Appearance General appearance: well-developed, well-nourished EENT: ATNC, mucous membranes moist Neck: supple Respiratory: clear Cardiology: no edema, regular rate, regular rhythm, normal S1, normal S2 Gastrointestinal: normoactive bowel sounds, no tenderness, no guarding Integumentary: warm and dry Neurologic: no focal deficit, alert and oriented x3 Musculoskeletal: no cyanosis, no clubbing Psychiatric: mood/affect appropriate, cooperative Results - Lab Results 01/03/19 22:22 01/06/19 14:50 Most recent lab results Calcium 8.7 mg/dL (8.6-10.3) 01/06/19 04:07 Phosphorus 2.5 mg/dL (2.7-4.5) L 01/04/19 08:42 Magnesium 1.7 mg/dL (1.6-2.6) 01/06/19 04:07 Urine Sodium 14.0 mEq/L 01/05/19 17:12 Consult Discharge Plan - Plan Referrals: Steve Figueroa MD [Primary Care Provider] -
[2019-01-06 15:39] LABS: BUN/Creatinine Ratio 8 (6-26); Blood Urea Nitrogen 6 mg/dL (6-20); Calcium 9.6 mg/dL (8.6-10.3); Carbon Dioxide 25 mEq/L (23-29); Chloride 101 mEq/L (98-107); Glucose 99 mg/dL (70-105); Osmolality,Calculated 274 (280-300); Potassium 4.6 mEq/L (3.5-5.1); Sodium 133 mEq/L (136-145); eGFR For Non-African Americans > 60 (> 60)
--- NOTE | 2019-01-06 16:02 | Internal Med Progress Note ---
Hospitalist Progress Note - Encounter Date of Encounter: 01/06/19 Time of Encounter: 14:00 - Subjective Interval History: No new complaints. No fever/chills overnight. Noted that she had 7 L of urine output yesterday and also reports drinking good amount of water. Urine osm came back very low at 49 with Kayley 14. - Exam Vitals: Temp Pulse Resp BP Pulse Ox 98.5 F 91 18 109/67 94 01/06/19 15:02 01/06/19 15:02 01/06/19 15:02 01/06/19 15:02 01/06/19 15:02 Exam: Vitals: Reviewed General: NAD Chest: Normal thoracic expansion. Normal breath sounds. Clear to auscultation. Heart: Normal S1 & S2; rhythmic. No rubs or murmurs. Abdomen: soft, non-tender Neurological: Awake, alert and oriented to person, place and time. No focal deficits. Psych: Affect appropriate. - Assessment and Plan (1) Hyponatremia Current Visit: Yes Status: Acute Assessment and Plan: Admitted on 01/03 due to hyponatremia of 120. Was recently here for the same issue and discharged home on 12/27 with PO Dexamethasone due to the concern of adrenal insufficiency which she never jolie led. Dexamethasone started again also has 2 SSRIs for antidepressants, SIADH is a reasonable possibility. They were restarted at half doses to avoid abrupt withdrawal due to recurrent hyponatremia during hospitalization, psych was consulted for med recommendation. Will d/c prozac, ativan, quetiapine per their rec and consider adding Wellbutrin. Appreciate rec will continue to monitor BMP, aim for Na ~ 129-130 by tomorrow morning continue salt tab but will hold PM dose if Na rises too quickly discussed with nephro yesterday, will wait for their rec as well continue fluid restriction 1.5L/day (2) Hypokalemia Current Visit: Yes Status: Acute Assessment and Plan: replete and monitor (3) COPD (chronic obstructive pulmonary disease) Current Visit: Yes Status: Chronic Assessment and Plan: not in exacerbation. Continue LABA/ICS and PRATEEK prn. (4) Anxiety and depression Current Visit: Yes Status: Chronic Assessment and Plan: appreciate psych rec, continue Cymbalta and d/c prozac, ativan, and quetiapine for close follow up with outpatient psychiatry next week (5) GERD (gastroesophageal reflux disease) Current Visit: Yes Status: Chronic Assessment and Plan: resume home meds (6) Tobacco abuse Current Visit: Yes Status: Chronic Assessment and Plan: smoking cessation emphasized NRT (7) DVT prophylaxis Current Visit: Yes Status: Acute Assessment and Plan: SQ heparin - Time Spent with Patient Total time spent is greater than 50% in coordination of care (as documented) at patient's floor/unit and/or counseling patient: 25 - 35 minutes Plan of Care Discussed with: patient (discussed with the family member and RN as well) Internal Medicine: Result - Labs CBC & Chem 7: 01/03/19 22:22 01/06/19 14:50 Labs: BMP 01/05/19 01/05/19 01/06/19 15:27 22:11 04:07 Sodium 121 L 122 L 125 L Potassium 4.2 D 3.5 3.4 L Chloride 92 L 92 L 95 L Carbon Dioxide 24 24 24 BUN 2 L 2 L 2 L Creatinine 0.53 L 0.41 L 0.39 L Glucose 196 H 93 85 Calcium 8.7 8.9 8.7 01/06/19 14:50 Sodium 133 L Potassium 4.6 D Chloride 101 Carbon Dioxide 25 BUN 6 Creatinine 0.71 Glucose 99 Calcium 9.6 Consult Discharge Plan - Plan Referrals: Steve Figueroa MD [Primary Care Provider] - (3) COPD (chronic obstructive pulmonary disease) Qualifiers: COPD type: unspecified COPD Qualified Code(s): J44.9 - Chronic obstructive pulmonary disease, unspecified (5) GERD (gastroesophageal reflux disease) Qualifiers: Esophagitis presence: with esophagitis Qualified Code(s): K21.0 - Gastro- esophageal reflux disease with esophagitis
[2019-01-06 23:30] LABS: BUN/Creatinine Ratio 13 (6-26); Blood Urea Nitrogen 7 mg/dL (6-20); Calcium 9.1 mg/dL (8.6-10.3); Carbon Dioxide 23 mEq/L (23-29); Chloride 103 mEq/L (98-107); Glucose 127 mg/dL (70-105); Osmolality,Calculated 278 (280-300); Potassium 3.9 mEq/L (3.5-5.1); Sodium 134 mEq/L (136-145); eGFR For Non-African Americans > 60 (> 60)
[2019-01-07 04:21] LABS: BUN/Creatinine Ratio 13 (6-26); Blood Urea Nitrogen 6 mg/dL (6-20); Calcium 9.3 mg/dL (8.6-10.3); Carbon Dioxide 25 mEq/L (23-29); Chloride 102 mEq/L (98-107); Glucose 104 mg/dL (70-105); Osmolality,Calculated 274 (280-300); Potassium 3.6 mEq/L (3.5-5.1); Sodium 133 mEq/L (136-145); eGFR For Non-African Americans > 60 (> 60)
[2019-01-07] MEDS: *HR* Heparin 5,000 UNIT/ML VIAL SQ SCH (06:12)
[2019-01-07 06:25] VITALS: BP 111/67
[2019-01-07] MEDS: Nicotine 21 MG PATCH.TD24 TD SCH (07:55)
[2019-01-07] MEDS: Budesonide/Formoterol 160/4.5 1 PUFF INH IH SCH (08:15)
[2019-01-07] MEDS: Tiotropium 18 MCG inhalation IH SCH (08:20)
--- NOTE | 2019-01-07 09:47 | Discharge Summary ---
- NOTES TO OUTPATIENT PROVIDER Notes to Outpatient Provider: Patient was admitted for recurrent hyponatremia which was multifactorial: Polydipsia, SIADH from SSRI, and possible adrenal insufficiency which was diagnosed during the previous admission but never picked up PO Dexamethasone. Improved from 120 to 133 over the course of 3 days and will be discharged home on salt tab daily. Psych meds were also adjusted per psychiatrist's recommendation. Strict fluid restriction of 1.5L/day was reinforced and pt was again advised to roll picker dexamethasone. Orders not resulted at time of discharge: Pending orders 01/04/19 01:18 ECG 12 lead ECG [ECG] Stat 01/08/19 04:00 BMP [Basic Metabolic Panel] AM 0400 01/09/19 04:00 BMP [Basic Metabolic Panel] AM 0400 Date of Encounter: 01/07/19 Time of Encounter: 07:30 - Discharge Diagnosis (1) Hyponatremia Priority: Primary Status: Acute (2) Hypokalemia Priority: Secondary Status: Acute (3) COPD (chronic obstructive pulmonary disease) Priority: Secondary Status: Chronic Qualifiers: COPD type: unspecified COPD Qualified Code(s): J44.9 - Chronic obstructive pulmonary disease, unspecified (4) Anxiety and depression Priority: Secondary Status: Chronic (5) GERD (gastroesophageal reflux disease) Priority: Secondary Status: Chronic Qualifiers: Esophagitis presence: with esophagitis Qualified Code(s): K21.0 - Gastro- esophageal reflux disease with esophagitis (6) Tobacco abuse Priority: Secondary Status: Chronic (7) DVT prophylaxis Priority: Secondary Status: Acute Hospital course: Ms. العراقي is a 53 year old female with history of COPD, depression/anxiety, who was admitted for recurrent hyponatremia which was multifactorial: Polydipsia, SIADH from SSRI, and possible adrenal insufficiency which was diagnosed during the previous admission but never picked up PO Dexamethasone. Improved from 120 to 133 over the course of 3 days and will be discharged home on salt tab daily. Psych meds were also adjusted per psychiatrist's recommendation. Strict fluid restriction of 1.5L/day was reinforced and pt was again advised to roll picker dexamethasone. Discharge discussed with: patient, family, nurse - Time Spent with Patient Total time spent providing and/or coordinating discharge services: 33 mins - Discharge Medications Prescriptions: New DULoxetine [Cymbalta] 30 mg PO DAILY #30 capsule. Nicotine Patch [Nicoderm] 21 mg TD DAILY #14 patch.[id number] Sodium Chloride [Sodium Chloride Tab] 1 gm PO DAILY #30 tablet Continue Tiotropium [Spiriva] 18 mcg IH 0700 Calc/D3/Mag/Zn/[place]eth[place] [Calcium 600 mg Plus Vit D Tab] 1 tab PO BID Budesonide/Formoterol 160/4.5 [Symbicort 160/4.5] 2 puff IH BID Alendronate Sodium [Fosamax] 70 mg PO FR Ipratropium/Albuterol Neb [Duoneb] 3 ml IH Q6HR Omeprazole [PriLOSEC] 20 mg PO DAILY@30 30 Days #30 capsule. Albuterol Sulfate [Ventolin Hfa] 2 puff IH Q4-6H PRN #2 bottle PRN Reason: Shortness Of Breath Dexamethasone [Decadron] 4 mg PO DAILY 30 Days #30 tablet Discontinued DULoxetine [Cymbalta] 60 mg PO DAILY LORazepam [Ativan] 1 mg PO BID PRN PRN Reason: Anxiety Quetiapine Fumarate [Seroquel] 300 mg PO HS FLUoxetine HCl [Fluoxetine HCl] 40 mg PO DAILY Home Medications: Alendronate Sodium [Fosamax] 70 mg PO FR 02/24/17 [History] Budesonide/Formoterol 160/4.5 [Symbicort 160/4.5] 2 puff IH BID 02/24/17 [History] Calc/D3/Mag/Zn/[place] [Calcium 600 mg Plus Vit D Tab] 1 tab PO BID 02/24/17 [History] Tiotropium [Spiriva] 18 mcg IH 0700 02/24/17 [History] Ipratropium/Albuterol Neb [Duoneb] 3 ml IH Q6HR 12/23/18 [History] Albuterol Sulfate [Ventolin Hfa] 2 puff IH Q4-6H PRN #2 bottle 12/27/18 [Rx] Omeprazole [PriLOSEC] 20 mg PO DAILY@30 30 Days #30 capsule. 12/27/18 [Rx] DULoxetine [Cymbalta] 30 mg PO DAILY #30 capsule. 01/07/19 [Rx] Dexamethasone [Decadron] 4 mg PO DAILY 30 Days #30 tablet 01/07/19 [Rx] Nicotine Patch [Nicoderm] 21 mg TD DAILY #14 patch.td24 01/07/19 [Rx] Sodium Chloride [Sodium Chloride Tab] 1 gm PO DAILY #30 tablet 01/07/19 [Rx] Allergies/Adverse Reactions: Allergy/AdvReac Type Severity Reaction Status Date / Time Penicillins Allergy Hives Verified 12/23/18 22:29 Tizanidine [From Zanaflex] Allergy See Verified 12/23/18 22:29 Comments clonazepam [From Klonopin] AdvReac Joint Pain Verified 12/23/18 22:29 codeine AdvReac Rash Verified 12/23/18 22:29 methocarbamol [From Robaxin] AdvReac See Verified 12/23/18 22:29 Comments tramadol [From Ultram] AdvReac See Verified 12/23/18 22:29 Comments Date of admission: 01/04/19 02:18 Primary care physician: Steve Figueroa MD Consults: 01/05/19 16:23 Consult to Nephrology [CONS] Routine Consulting Provider: [facility]/ALFONSO/TAMIKO Reason for Consult: recurrent hyponatremia Call Completed: Yes Consult to Psychiatry [CONS] Routine Consulting Provider: Psychiatry [place] Reason consult: Medication recommendation Other reason and/or additional details: hyponatremia, on 2 SSRIs ?alternative Call Completed: Yes - Constitutional Vitals: Temp Pulse Resp BP Pulse Ox 98.5 F 73 18 111/67 94 01/07/19 06:22 01/07/19 06:22 01/07/19 08:15 01/07/19 06:22 01/07/19 08:15 Exam: Vitals: Reviewed General: NAD Chest: Normal thoracic expansion. Normal breath sounds. Clear to auscultation. Heart: Normal S1 & S2; rhythmic. No rubs or murmurs. Abdomen: soft, non-tender Neurological: Awake, alert and oriented to person, place and time. No focal deficits. Psych: Affect appropriate. - Patient Status Disposition: Home, Self-Care Condition: Fair Functional capacity at discharge: independent ambulation Overall status at discharge: patient is progressing back to baseline - Discharge Instructions Instructions: Anxiety (DC), Chronic Obstructive Pulmonary Disease (DC) Follow Up With: Steve Figueroa MD [Primary Care Provider] - Yoselyn Cardoso MD [Partnered Physician] - Additional Instructions: Salt tab daily SSRIs titrated per psych recommendation. Folllow up with Psychiatric as outpatient on 01/12 Fluid restrict 1.5L/day Dexamethasone started for possible adrenal insufficiency, follow up with endocrinology Follow up with PCP with BMP in 5 days - Diet and Activity Activity: resume usual activities as tolerated Diet: regular diet (fluid restrict 1.5L/day)
== END 2019-01-07 12:00 | disposition home or self-care (01) ==
LOC: EMEROOARM 21:35 → 3ANU 21:35 → SUATTDRO 01-04 02:18 → 3ANU 01-04 02:32
PROVIDERS: ADMIT Internal Medicine; ATTEND Internal Medicine

== ENCOUNTER 2019-03-30 12:52 | Inpatient (IN) ==
[2019-03-30 13:57] LABS: Bilirubin,Urine Negative (Negative); Blood,Urine Negative (Negative); Clarity,Urine Clear (Clear); Color,Urine Yellow (Yellow); Glucose,Urine (UA) Normal (Normal); Ketones,Urine Negative (Negative); Leukocyte Esterase,Urine Negative (Negative); Nitrite,Urine Negative (Negative); Protein,Urine Negative (Neg-Trace); Specific Gravity,Urine 1.009 (1.010-1.025); Urobilinogen,Urine Normal (Normal)
[2019-03-30 14:16] LABS: Amphetamine Screen,Urine Negative ng/mL (Cutoff=1000); Barbiturate Screen,Urine Negative ng/mL (Cutoff=200); Benzodiazepines Screen,Urine Negative ng/mL (Cutoff=200); Cannabinoid Screen,Urine Negative ng/mL (Cutoff = 50); Cocaine Screen,Urine Negative ng/mL (Cutoff= 300); Opiate Screen,Urine Negative ng/mL (Cutoff=300); Phencyclidine Screen,Urine Negative ng/mL (Cutoff=25)
[2019-03-30 14:20] LABS: Basophils # 0.1 K/mcL (0.0-0.2); Basophils % 0.5 %; Eosinophils # 0.1 K/mcL (0.0-0.6); Eosinophils % 0.7 %; Hematocrit 41.6 % (35.3-44.9); Hemoglobin 14.3 g/dL (11.5-15.4); Immature Granulocytes % 0.4 % (0-4); Lymphocytes # 1.7 K/mcL (0.6-4.6); Lymphocytes % 16.6 %; Mean Corpuscular HGB Conc 34.4 g/dL (31.6-35.5); Mean Corpuscular Volume 90.2 fL (83.0-100.0); Mean Platelet Volume 10.1 fL (9.4-12.4); Monocytes # 0.8 K/mcL (0.0-1.3); Monocytes % 7.6 %; Neutrophils # 7.6 K/mcL (1.6-8.9); Platelet Count 263 K/mcL (140-400); Red Blood Count 4.61 M/mcL (3.82-4.97); Red Cell Distribution Width 12.7 % (11.5-14.5); Segmented Neutrophils % 74.2 %; White Blood Count 10.2 K/mcL (4.3-11.1)
[2019-03-30 14:34] LABS: Acetaminophen < 10 mcg/mL (10-20); BUN/Creatinine Ratio 10 (6-26); Blood Urea Nitrogen 6 mg/dL (6-20); Calcium 9.4 mg/dL (8.6-10.3); Carbon Dioxide 26 mEq/L (23-29); Chloride 99 mEq/L (98-107); Ethanol < 10 mg/dL (Less than 10); Glucose 89 mg/dL (70-105); Osmolality,Calculated 271 (280-300); Potassium 3.8 mEq/L (3.5-5.1); Salicylate < 2.5 mg/dL (15.0-30.0); Sodium 132 mEq/L (136-145); eGFR For African Americans > 60 (> 60); eGFR For Non-African Americans > 60 (> 60)
--- NOTE | 2019-03-30 15:13 | Emergency Department Note ---
Disposition Clinical Impression: Acute psychosis, Depression, Suicidal ideation Disposition: Still a Patient Condition: Fair Referrals: NONE,PCP [Primary Care Provider] - Time of Disposition: 15:16 General Adult HPI - General Chief complaint: ED Psychiatric Symptoms Stated complaint: Psych eval Time Seen by Provider: 03/30/19 12:59 Source: patient Limitations: no limitations Nursing Notes Reviewed: Yes Vital Signs Reviewed: Yes - History of Present Illness HPI Narrative: Patient presents emergency Department with family for progressively worsening paranoia visual and auditory hallucinations, and suicidal ideation. The patient has been having significant problems since a breakup with her significant other, moved in with her other family member which is her mother, and since that time she has rapidly developed worsening symptoms of paranoia she never had any significant problems with psychiatric illness prior to this. She states that she is afraid for her life and that somebody is going to come and kill her. She states that she hears voices. She states that she sees things. The family reports that she thinks that helicopters are following her and shining lights do wn on her. She has progressively worsening fears of and that everybody is going to kill her family and kill her. The patient states that she does feel suicidal and states that she just cannot handle everything she feels like she is having a nervous breakdown she reports that 3 or 4 days ago she took 6 of her metoprolol tablets to try and kill her self. She denies any ingestion acutely. She states she is very scared and states that she wants to make sure her family is safe and that she just wants to to protect her family. She states that as long as she is around she is afraid that somebody is going to hurt her family as well. She denies acute headaches, but states she has chronic problems with headaches for months. This is not new for her. She reports that she does have a history of some low sodium, and some renal problems. She states she is sick and tired of having medical problems as well and she would be better off . Patient states that she sometimes has chest pain but does not currently have chest pain she states that she is pretty sure this is anxiety driven. She denies chest pressure or exertional symptoms denies palpitations. She denies fevers chills cough or sputum production she has not been eating or drinking very well and thinks she has lost weight because of this. She denies night sweats. She denies urinary changes she denies leg pain or leg swelling. She denies any acute trauma. She denies rashes. Pain Scale: 5 - Related Data Home Medications Medication Instructions Recorded Confirmed Alendronate Sodium [Fosamax] 70 mg PO FR 02/24/17 01/04/19 Budesonide/Formoterol 160/4.5 2 puff IH BID 02/24/17 01/04/19 [Symbicort 160/4.5] Calc/D3/Mag/Zn/[place] 1 tab PO BID 02/24/17 01/04/19 [Calcium 600 mg Plus Vit D Tab] Tiotropium [Spiriva] 18 mcg IH 0700 02/24/17 01/04/19 Ipratropium/Albuterol Neb [Duoneb] 3 ml IH Q6HR 12/23/18 01/04/19 Previous Rx's Medication Instructions Recorded Albuterol Sulfate [Ventolin Hfa] 2 puff IH Q4-6H PRN #2 bottle 12/27/18 DULoxetine [Cymbalta] 30 mg PO DAILY #30 capsule. 01/07/19 Nicotine Patch [Nicoderm] 21 mg TD DAILY #14 patch.[id number] 01/07/19 Sodium Chloride [Sodium Chloride 1 gm PO DAILY #30 tablet 01/07/19 Tab] Allergies Allergy/AdvReac Type Severity Reaction Status Date / Time Penicillins Allergy Hives Verified 03/30/19 13:02 Tizanidine [From Zanaflex] Allergy See Verified 03/30/19 13:02 Comments clonazepam [From Klonopin] AdvReac Joint Pain Verified 03/30/19 13:02 codeine AdvReac Rash Verified 03/30/19 13:02 methocarbamol [From Robaxin] AdvReac See Verified 03/30/19 13:02 Comments tramadol [From Ultram] AdvReac See Verified 03/30/19 13:02 Comments All systems ED: reviewed and negative except as stated. Review of Systems: As Per HPI Past Medical History - Past Medical History Medical history: Reports: COPD, GERD, osteoporosis Surgical history: Reports: herniorrhaphy Psychiatric history: Reports: anxiety, depression [employer] history: Reports: non-contributory - Social History Smoking Status: Current every day smoker Smokeless Tobacco Status: No Alcohol use: Reports: none Drug use: Reports: none Physical Exam - General Limitations: no limitations General appearance: alert, in no apparent distress, anxious, other (Tearful) - Head Head exam: atraumatic, normocephalic - Eye Eye exam: Present: normal appearance, PERRL - ENT ENT exam: normal exam, normal oropharynx - Neck Neck exam: Present: normal inspection - Chest Chest inspection: Present: normal inspection, symmetric chest wall rise - Respiratory Respiratory exam: Present: normal lung sounds bilaterally - Cardiovascular Cardiovascular exam: Present: regular rate, normal rhythm - Abdominal Exam Abdominal exam: Present: soft, Non-Tender - Extremities Exam Extremities exam: Present: normal inspection, full ROM - Expanded Lower Extremity Exam Neurovascular/Tendon exam: Present: normal capillary refill. Absent: pulse deficit, motor deficit, sensory deficit, tendon deficit Gait: observed and normal - Back Exam Back exam: Present: normal inspection, full ROM - Neurological Exam Neurological exam: Present: alert, oriented X3, CN II-XII intact, normal gait, reflexes normal. Absent: motor sensory deficit - Psychiatric Psychiatric exam: Present: depressed, anxious, flat affect, suicidal ideation - Skin Skin exam: Present: warm, dry, intact Course Vital Signs Temperature 98.1 F 03/30/19 12:56 Pulse Rate 84 03/30/19 12:56 Respiratory Rate 16 03/30/19 12:56 Blood Pressure 146/88 03/30/19 12:56 O2 Sat by Pulse Oximetry 96 03/30/19 12:56 Temperature 98.1 F 03/30/19 13:04 Pulse Rate 92 03/30/19 13:04 Respiratory Rate 20 03/30/19 13:04 Blood Pressure 140/118 03/30/19 13:04 O2 Sat by Pulse Oximetry 99 03/30/19 13:04 Oxygen Delivery Oxygen Delivery Room Air Medical Decision Making - [facility] Narrative Medical decision making narrative: Patient was given Tylenol for her headache which is what she requested after head CT showed no acute abnormality, and after Tylenol levels undetectable. EKG was a normal sinus rhythm with no evidence of acute ischemic dysrhythmia hyp erkalemia or abnormal intervals no acute change from December 2018 as interpreted by myself. CBC is within acceptable limits renal panel shows a sodium of 132 which is stable for this patient, she has had hyponatremia down to 120 in the past, however baseline is 132 234. No other electrolytic disturbance. Urinalysis urine drug screens showed no acute findings. Salicylate Tylenol ethanol levels are all undetectable Head CT chest x-ray as interpreted by radiology showed no acute findings. Patient was cleared medically for psychiatric admission. - Medical Records Medical records reviewed: Yes I reviewed the patient's medical records. - Lab Data Lab results reviewed: Yes I reviewed the patient's lab results. Result diagrams: 03/30/19 13:46 03/30/19 13:46 Lab Results 03/30/19 03/30/19 03/30/19 Range/Units 13:36 13:36 13:46 WBC 10.2 (4.3-11.1) K/mcL RBC 4.61 (3.82-4.97) M/mcL Hgb 14.3 (11.5-15.4) g/dL Hct 41.6 (35.3-44.9) % MCV 90.2 (83.0-100.0) fL MCH 31.0 (28.0-33.3) pg MCHC 34.4 (31.6-35.5) g/dL RDW 12.7 (11.5-14.5) % Plt Count 263 (140-400) K/mcL MPV 10.1 (9.4-12.4) fL Immature Gran % 0.4 (0-4) % Seg Neutrophils % 74.2 % Lymphocytes % 16.6 % Monocytes % 7.6 % Eosinophils % 0.7 % Basophils % 0.5 % Neutrophils # 7.6 (1.6-8.9) K/mcL Lymphocytes # 1.7 (0.6-4.6) K/mcL Monocytes # 0.8 (0.0-1.3) K/mcL Eosinophils # 0.1 (0.0-0.6) K/mcL Basophils # 0.1 (0.0-0.2) K/mcL Sodium (136-145) mEq/L Potassium (3.5-5.1) mEq/L Chloride (98-107) mEq/L Carbon Dioxide (23-29) mEq/L BUN (6-20) mg/dL Creatinine (0.60-1.20) mg/dL Est GFR ( Amer) (> 60) Est GFR (Non-Af Amer) (> 60) BUN/Creatinine Ratio (6-26) Glucose (70-105) mg/dL Calculated Osmolality (280-300) Calcium (8.6-10.3) mg/dL Urine Color Yellow (Yellow) Urine Clarity Clear (Clear) Urine pH 6.0 (5.0-8.0) pH Units Ur Specific [place] 1.009 L (1.010-1.025) Urine Protein Negative (Neg-Trace) mg/dL Urine Glucose (UA) Normal (Normal) mg/dL Urine Ketones Negative (Negative) mg/dL Urine Blood Negative (Negative) Urine Nitrite Negative (Negative) Urine Bilirubin Negative (Negative) Urine Urobilinogen Normal (Normal) mg/dL Ur Leukocyte Esterase Negative (Negative) Salicylates (15.0-30.0) mg/dL Urine Opiates Screen Negative (Glffus=733) ng/mL Acetaminophen (10-20) mcg/mL Ur Barbiturates Screen Negative (Gvfkzm=937) ng/mL Ur Phencyclidine Scrn Negative (Cutoff=25) ng/mL Ur Amphetamines Screen Negative (Rhaild=2171) ng/mL U Benzodiazepines Scrn Negative (Srbjdm=573) ng/mL Urine Cocaine Screen Negative (Cutoff= 300) ng/mL U Marijuana (THC) Screen Negative (Cutoff = 50) ng/mL Ur Drug Screen Interp See Below Ethyl Alcohol (Less than 10) mg/dL 03/30/19 Range/Units 13:46 WBC (4.3-11.1) K/mcL RBC (3.82-4.97) M/mcL Hgb (11.5-15.4) g/dL Hct (35.3-44.9) % MCV (83.0-100.0) fL MCH (28.0-33.3) pg MCHC (31.6-35.5) g/dL RDW (11.5-14.5) % Plt Count (140-400) K/mcL MPV (9.4-12.4) fL Immature Gran % (0-4) % Seg Neutrophils % % Lymphocytes % % Monocytes % % Eosinophils % % Basophils % % Neutrophils # (1.6-8.9) K/mcL Lymphocytes # (0.6-4.6) K/mcL Monocytes # (0.0-1.3) K/mcL Eosinophils # (0.0-0.6) K/mcL Basophils # (0.0-0.2) K/mcL Sodium 132 L (136-145) mEq/L Potassium 3.8 (3.5-5.1) mEq/L Chloride 99 (98-107) mEq/L Carbon Dioxide 26 (23-29) mEq/L BUN 6 (6-20) mg/dL Creatinine 0.58 L (0.60-1.20) mg/dL Est GFR ( Amer) > 60 (> 60) Est GFR (Non-Af Amer) > 60 (> 60) BUN/Creatinine Ratio 10 (6-26) Glucose 89 (70-105) mg/dL Calculated Osmolality 271 L (280-300) Calcium 9.4 (8.6-10.3) mg/dL Urine Color (Yellow) Urine Clarity (Clear) Urine pH (5.0-8.0) pH Units Ur Specific [place] (1.010-1.025) Urine Protein (Neg-Trace) mg/dL Urine Glucose (UA) (Normal) mg/dL Urine Ketones (Negative) mg/dL Urine Blood (Negative) Urine Nitrite (Negative) Urine Bilirubin (Negative) Urine Urobilinogen (Normal) mg/dL Ur Leukocyte Esterase (Negative) Salicylates < 2.5 L (15.0-30.0) mg/dL Urine Opiates Screen (Hlprrm=265) ng/mL Acetaminophen < 10 L (10-20) mcg/mL Ur Barbiturates Screen (Cnjpwm=209) ng/mL Ur Phencyclidine Scrn (Cutoff=25) ng/mL Ur Amphetamines Screen (Pmbugo=9288) ng/mL U Benzodiazepines Scrn (Oubzli=067) ng/mL Urine Cocaine Screen (Cutoff= 300) ng/mL U Marijuana (THC) Screen (Cutoff = 50) ng/mL Ur Drug Screen Interp Ethyl Alcohol < 10 (Less than 10) mg/dL
[2019-03-30] MEDS ORDERED: *HR* LORazepam 2 MG/ML VIAL IM PRN (19:39)
[2019-03-30] MEDS ORDERED: Mag Hydrox/Al Hydrox/Simeth 30 ML UDC PO PRN (19:39)
[2019-03-30] MEDS ORDERED: Acetaminophen 325 MG TABLET PO PRN (19:39)
[2019-03-30] MEDS ORDERED: Haloperidol Lactate 5 MG/ML VIAL IM PRN (19:39)
[2019-03-30] MEDS ORDERED: MOM Conc 10 ML UD.LIQ PO PRN (19:39)
[2019-03-30] MEDS ORDERED: Hydrocortisone 10 MG TABLET PO SCH (21:00)
[2019-03-30] MEDS: amLODIPine 5 MG TABLET PO SCH (21:31)
[2019-03-30] MEDS: hydrOXYzine pamoate 25 MG CAPSULE PO PRN (21:32)
[2019-03-30] MEDS: Metoprolol XL (24 HR) Succ 25 MG TAB.ER.24H PO SCH (21:33)
[2019-03-30] MEDS: Hydrocortisone 10 MG TABLET PO SCH (23:11)
[2019-03-30] MEDS: Magnesium Oxide 400 MG TABLET PO SCH (23:12)
[2019-03-30] MEDS: Budesonide/Formoterol 160/4.5 1 PUFF INH IH SCH (23:12)
[2019-03-31] MEDS: Ipratropium/Albuterol Neb 3 ML IH SCH ×2 (02:12→04:49)
[2019-03-31] MEDS ORDERED: Ipratropium/Albuterol Neb 3 ML IH PRN (04:58)
[2019-03-31] MEDS: Nicotine 21 MG PATCH.TD24 TD SCH (11:00)
[2019-03-31] MEDS: Hydrocortisone 10 MG TABLET PO SCH ×2 (11:01)
[2019-03-31] MEDS: amLODIPine 5 MG TABLET PO SCH (11:01)
[2019-03-31] MEDS: Magnesium Oxide 400 MG TABLET PO SCH (11:01)
[2019-03-31] MEDS: Budesonide/Formoterol 160/4.5 1 PUFF INH IH SCH ×2 (11:21→21:11)
--- NOTE | 2019-03-31 12:58 | Psychiatry History & Physical ---
Date of Encounter: 03/31/19 Time of Encounter: 12:15 History of Present Illness Patient Stated Chief Complaint: "I'm not safe. My family won't be safe" Medicare Admission Attestation: For traditional Medicare patients the provided hospital inpatient services are reasonable and necessary and in the case of services not specified as inpatient-only under 42 CFR 419.22 (n), that they are appropriately provided as inpatient services in accordance 42 CFR 412.3. For Critical Access Hospital the patient may reasonably be expected to be discharged or transferred to a hospital within 96 hours after admission to the Critical Access Hospital. Admitted From: Emergency Dept Plans for Post Hospital Care: Home History of Present Illness: Ms. العراقي is a 54 year old female who was admitted to 1A psychiatric unit after being medically cleared the emergency room. When I asked the patient how she was doing, she replied "hanging in there". She describes her constant feeling of distress and being scared for the last 2 months. She feels that her family is not safe as long as she is around. She hears whispers in her house, but she cannot make out what the whispers are saying. She tells me "they tell me I know too much. So if I , they would leave the rest of my family alone." Patient has had thoughts of suicide by overdosing on medication. She denies any visual hallucinations. She does endorse feeling hopeless, helpless and having low energy. She has a poor appetite. She has poor concentration and poor sleep. She worries about her health and the health her family and thinks about that at night contributing to her problems sleeping. She recently from her and is living at her mother's house. From information received during the initial ER consult, a family member noticed a difference in her mood and thought process proximally 6 weeks ago. It has been getting worse. The patient tells me that she had been taken off her Cymbalta and Prozac months ago because she was told by her doctor that "they were dangerous and I should not be taking them". She tells me that the Cymbalta was slowly titrated back and that she has been off of that for at least 2 months. She is currently having suicidal ideation. She does not want to restart any antidepressants, or any medications secondary to what her e commerce developer reportedly told her. "I'm confused and don't know what to do". I will contact her e commerce developer, Dr. Cardoso, to discuss her medical issues and adrenal insufficiency. I am not sure if the psychosis is a result of the adrenal insufficiency or result of the steroid use in treating the adrenal insufficiency. The patient is not willing to consent to psychotropic medication till she hears from her doctor. She is confused and scared. A phone call was placed to Dr. Cardoso's office. I spoke to one of the office staff in regards to the situation and asked them to have the doctor or the covering physician call me back, giving the number of the 1A unit. She said that she would forward the message, urgently and have someone get back to me. She will be monitored on the unit and prn medications are available to her if she changes her mind and decides to take them. Addendum: As of 6 o'clock Wednesday evening I had not heard back from the e commerce developer office. A consult request was put in for [facility] End ocrinology covering franchise field consultant to see the patient on the unit. This should take place within the next 24 hours. Past Med Surg Social Fam HX - Past Medical History Source: patient, obtained from family Medical history: COPD, GERD, osteoporosis, other (Adrenal Insufficiency) - Past Psychiatric History Psychiatric history: Reports: anxiety, depression Past psychiatric history details: Had been taking Prozac and Cymbalta. She was weaned off about 2 months ago for no known reason. Family psychiatric history: Yes (Paternal grandmother ?) Family History of Suicide: Unknown (Not that she knows of) - Past Surgical History Surgical History: herniorrhaphy - Social History Smoking Status: Current every day smoker Smokeless Tobacco Status: No Alcohol use: none Drug use: none Occupational status: disabled Current living situation: With Family (Seperated from her , living with her mother) Activity Level: Independent ambulation Recent Out of Country Travel Within the Last 8 Weeks: No Exposure or Possible Exposure to Illness During Travel: No - Family History Grandfather Living Status: Hx Family Cancer: Yes Medications & Allergies Budesonide/Formoterol 160/4.5 [Symbicort 160/4.5] 2 puff IH BID 02/24/17 [History] Ipratropium/Albuterol Neb [Duoneb] 3 ml IH Q6HR 12/23/18 [History] Albuterol Sulfate [Ventolin Hfa] 2 puff IH Q4-6H PRN #2 bottle 12/27/18 [Rx] Sodium Chloride [Sodium Chloride Tab] 1 gm PO DAILY #30 tablet 01/07/19 [Rx] Amlodipine Besylate 2.5 mg PO DAILY 03/30/19 [History] Hydrocortisone 5 mg PO 1500 03/30/19 [History] Hydrocortisone [Cortef] 10 mg PO 0800 03/30/19 [History] Magnesium Oxide [Magnesium] 400 mg PO DAILY 03/30/19 [History] Metoprolol Succinate [Toprol Xl] 25 mg PO QPM 03/30/19 [History] Omeprazole [PriLOSEC] 40 mg PO DAILY 03/30/19 [History] Allergy/AdvReac Type Severity Reaction Status Date / Time Penicillins Allergy Hives Verified 03/30/19 18:28 Tizanidine [From Zanaflex] Allergy See Verified 03/30/19 18:28 Comments clonazepam [From Klonopin] AdvReac Joint Pain Verified 03/30/19 18:28 codeine AdvReac Rash Verified 03/30/19 18:28 methocarbamol [From Robaxin] AdvReac See Verified 03/30/19 18:28 Comments tramadol [From Ultram] AdvReac See Verified 03/30/19 18:28 Comments Review of Systems Psychiatric: Reports: depression, anxiety, abnormal sleep pattern, suicidal ideation, change in appetite, auditory hallucinations, anhedonia, confusion, difficulty concentrating, hopelessness, irritability, mood swings Endocrine: Reports: other (Adrenal Insufficency) Exam - HEENT Head exam IM: Present: atraumatic Eye exam IM: Present: EOMI - Neurological Neurological exam: Present: CN II-XII intact (per medical clearance), alert - Constitutional Vitals: Temp Pulse Resp BP Pulse Ox 99.1 F 92 16 101/69 95 03/31/19 09:00 03/31/19 09:00 03/31/19 09:00 03/31/19 09:00 03/31/19 09:00 General appearance: age & developmentally appropriate, well-groomed, thin - Musculoskeletal Gait: normal Station: stooped Strength & Tone: normal for patient - Psychiatric Patient Orientation: Yes Person, Yes Time, Yes Place, Yes Circumstance Level of alertness: Alert Behavior: anxious, tearful, guarded Psychomotor activity: Normal Eye Contact: Minimal Contact Mood Description: Depressed, Anxious Affect description: congruent with mood, constricted, tearful Speech Volume: Soft/Quiet Speech pattern: normal rate, normal rhythm, normal tone, fluent Language & Vocabulary: consistent with education Thought Process: Circumstantial, Perseveration (on family's safety) Thought Content: Yes Suicidal ideation Perceptual Disturbances: Yes Auditory hallucinations (whispers) Attention Span Ability: Capable of Focused Attention Memory Description: Recent Impaired Patient Reliability: Questionable Historian Fund of knowledge: Yes average Intelligence Estimate: Average Judgment: Fair Insight: Minimal Results - Drug Levels and Toxicology Drug Levels and Toxicology: Drug Levels and Toxicity 03/30/19 03/30/19 13:36 13:46 Urine Opiates Screen Negative Acetaminophen < 10 L Ur Barbiturates Screen Negative Ur Phencyclidine Scrn Negative Ur Amphetamines Screen Negative U Benzodiazepines Scrn Negative Urine Cocaine Screen Negative U Marijuana (THC) Screen Negative Ethyl Alcohol < 10 - Labs Labs: Laboratory Last Values WBC 10.2 K/mcL (4.3-11.1) 03/30/19 13:46 RBC 4.61 M/mcL (3.82-4.97) 03/30/19 13:46 Hgb 14.3 g/dL (11.5-15.4) 03/30/19 13:46 Hct 41.6 % (35.3-44.9) 03/30/19 13:46 MCV 90.2 fL (83.0-100.0) 03/30/19 13:46 MCH 31.0 pg (28.0-33.3) 03/30/19 13:46 MCHC 34.4 g/dL (31.6-35.5) 03/30/19 13:46 RDW 12.7 % (11.5-14.5) 03/30/19 13:46 Plt Count 263 K/mcL (140-400) 03/30/19 13:46 MPV 10.1 fL (9.4-12.4) 03/30/19 13:46 Immature Gran % 0.4 % (0-4) 03/30/19 13:46 Seg Neutrophils % 74.2 % 03/30/19 13:46 16.6 % 03/30/19 13:46 7.6 % 03/30/19 13:46 0.7 % 03/30/19 13:46 0.5 % 03/30/19 13:46 7.6 K/mcL (1.6-8.9) 03/30/19 13:46 1.7 K/mcL (0.6-4.6) 03/30/19 13:46 0.8 K/mcL (0.0-1.3) 03/30/19 13:46 0.1 K/mcL (0.0-0.6) 03/30/19 13:46 0.1 K/mcL (0.0-0.2) 03/30/19 13:46 Sodium 132 mEq/L (136-145) L 03/30/19 13:46 Potassium 3.8 mEq/L (3.5-5.1) 03/30/19 13:46 Chloride 99 mEq/L (98-107) 03/30/19 13:46 Carbon Dioxide 26 mEq/L (23-29) 03/30/19 13:46 BUN 6 mg/dL (6-20) 03/30/19 13:46 0.58 mg/dL (0.60-1.20) L 03/30/19 13:46 Est GFR ( Amer) > 60 (> 60) 03/30/19 13:46 Est GFR (Non-Af Amer) > 60 (> 60) 03/30/19 13:46 10 (6-26) 03/30/19 13:46 Glucose 89 mg/dL (70-105) 03/30/19 13:46 271 (280-300) L 03/30/19 13:46 Calcium 9.4 mg/dL (8.6-10.3) 03/30/19 13:46 Yellow (Yellow) 03/30/19 13:36 Clear (Clear) 03/30/19 13:36 6.0 pH Units (5.0-8.0) 03/30/19 13:36 Ur Specific [place] 1.009 (1.010-1.025) L 03/30/19 13:36 Negative mg/dL (Neg-Trace) 03/30/19 13:36 Normal mg/dL (Normal) 03/30/19 13:36 Negative mg/dL (Negative) 03/30/19 13:36 Negative (Negative) 03/30/19 13:36 Negative (Negative) 03/30/19 13:36 Negative (Negative) 03/30/19 13:36 Normal mg/dL (Normal) 03/30/19 13:36 Ur Leukocyte Esterase Negative (Negative) 03/30/19 13:36 Salicylates < 2.5 mg/dL (15.0-30.0) L 03/30/19 13:46 Negative ng/mL (Wwxekk=379) 03/30/19 13:36 Acetaminophen < 10 mcg/mL (10-20) L 03/30/19 13:46 Ur Barbiturates Screen Negative ng/mL (Rpzcrv=806) 03/30/19 13:36 Ur Phencyclidine Scrn Negative ng/mL (Cutoff=25) 03/30/19 13:36 Ur Amphetamines Screen Negative ng/mL (Xqqhck=1552) 03/30/19 13:36 U Benzodiazepines Scrn Negative ng/mL (Fhdbot=308) 03/30/19 13:36 Negative ng/mL (Cutoff= 300) 03/30/19 13:36 U Marijuana (THC) Screen Negative ng/mL (Cutoff = 50) 03/30/19 13:36 Ur Drug Screen Interp See Below 03/30/19 13:36 Ethyl Alcohol < 10 mg/dL (Less than 10) 03/30/19 13:46 - Impressions Impressions Head CT 03/30/19 13:40 IMPRESSION: No acute intracranial abnormality or significant interval change from prior study 07/20/2018. D/ / John Sargent / John Sargent Interpreting Provider: John Sagrent Chest X-Ray 03/30/19 14:34 IMPRESSION: Emphysematous changes. No new acute cardiopulmonary findings. D/ / Ban Zamorano MD / Ban Zamorano MD Interpreting Provider: Ban Zamorano MD Assessment and Plan (1) Suicidal ideation Current visit: Yes Status: Acute Plan: Admit inpatient for safety and stabilization, Close observation, Suicide Precautions per unit protocol, Group Therapy, Monitor sleep, Monitor appetite Risks, benefits, side effects, alternatives discussed w/pt: Yes Patient agreeable to treatment: Yes Plans for Post Hospital Care: Home Estimated Length of Stay (Days): 7 (2) Depression, major, recurrent, severe with psychosis Current visit: Yes Status: Acute Plan: Admit inpatient for safety and stabilization, Close observation, Suicide Precautions per unit protocol, Encourage participation in unit milieu, Monitor sleep, Monitor appetite Risks, benefits, side effects, alternatives discussed w/pt: Yes Patient agreeable to treatment: Yes Estimated Length of Stay (Days): 7
[2019-03-31] MEDS: Metoprolol XL (24 HR) Succ 25 MG TAB.ER.24H PO SCH (19:14)
[2019-04-01] MEDS: Magnesium Oxide 400 MG TABLET PO SCH (10:08)
[2019-04-01] MEDS: Hydrocortisone 10 MG TABLET PO SCH ×2 (10:08→15:50)
[2019-04-01] MEDS: amLODIPine 5 MG TABLET PO SCH (10:08)
[2019-04-01] MEDS: Nicotine 21 MG PATCH.TD24 TD SCH (10:11)
--- NOTE | 2019-04-01 13:17 | Psychiatry Progress Note ---
Date of Encounter: 04/01/19 Time of Encounter: 11:20 Subjective Interval history: Patient was resting in her room when I went to see her. She did not want to come out of her room to talk. She wanted to talk there. (She has a single room so the conversation was confidential) I asked her if she took any of the prn medication last evening as I had told her about. She said "No. I told you I did not want to take anything till my doctor told me it was okay." She reported continued depressed and anxious. No active SI. No command hallucinations. She did not verbalize hearing the whispers here. She told me she was scared and did not feel any safer here than she did at home. I assured her that the safe on the unit were here to keep her safe and that if she had any issues to let them know and they would help her as best they could. She slept about 4.5 hours last night. She has been out on the unit for brief periods to eat. She did have family visiting last evening. No changes and no new complaints. She feels best just staying in her room till she hears from her doctor. I explained that we have called and tried to contact her doctor, but have not heard back from the office yet. Review of Systems Psychiatric: Reports: depression, anxiety, abnormal sleep pattern, suicidal ideation, change in appetite, auditory hallucinations, anhedonia, confusion, difficulty concentrating, hopelessness, irritability, mood swings Results - Vital Signs Vital Signs: Temp Pulse Resp BP Pulse Ox 98.5 F 78 16 110/74 98 04/01/19 09:00 04/01/19 09:00 04/01/19 09:00 04/01/19 09:00 04/01/19 09:00 - Impressions ITS Impressions Head CT 03/30/19 13:40 IMPRESSION: No acute intracranial abnormality or significant interval change from prior study 07/20/2018. D/ / John Sargent / John Sargent Interpreting Provider: John Sargent Chest X-Ray 03/30/19 14:34 IMPRESSION: Emphysematous changes. No new acute cardiopulmonary findings. D/ / Ban Zamorano MD / Ban Zamorano MD Interpreting Provider: Ban Zamorano MD Assessment and Plan (1) Suicidal ideation Current visit: Yes Status: Acute Risks, benefits, side effects, alternatives discussed w/pt: Yes Patient agreeable to treatment: Yes (2) Depression, major, recurrent, severe with psychosis Current visit: Yes Status: Acute Plan: Continue hospitalization, Close observation, Suicide Precautions per unit protocol, Encourage participation in unit milieu, Group Therapy, Monitor sleep, Monitor appetite, Family/Supportive other meeting Risks, benefits, side effects, alternatives discussed w/pt: Yes (She refuses to start or take any medications other than Rx'd by Dr. Cardoso) Patient agreeable to treatment: Yes (3) Mood disorder due to a general medical condition Current visit: Yes Status: Acute Plan: Other (Continue to wait for Endo/Yusera consult/returned call back ) Additional Plan: Most likely this disturbance is related to Adrenal Insufficiency or steroid therapy for AI Consult Discharge Plan - Plan Referrals: [facility] [Outside] - 04/10/19 9:00 am (You have an appointment scheduled on Wednesday, April 10, 2019 at 9:[address] Bob Muniz, PhD for Counseling. You have an appointment scheduled for Sunday, June 16, 2019 at 1:[address] Richmond for medication management. Please contact the office at least 24 hours in advance if you are unable to keep your appointment(s). ) Yoselyn Cardoso MD [Partnered Physician] - 06/01/19 2:40 am (You have an appointment scheduled with Dr. Yoselyn Cardoso M.D. on May at 2:40 PM Please contact the office at the number above at least 24 hours in advance if you are unable to keep this appointment. ) Steve Figueroa MD [Non-Partnered Physician] - 04/25/19 9:45 am (You have an appointment scheduled with your primary care provider Dr. Steve Figueroa M.D. on Thursday, April 25, 2019 at 9:45 AM Please contact the office at the number above at least 24 hours in advance if you are unable to keep this appointment. ) Psychiatry Exam - Constitutional Vitals: Temp Pulse Resp BP Pulse Ox 98.5 F 78 16 110/74 98 04/01/19 09:00 04/01/19 09:00 04/01/19 09:00 04/01/19 09:00 04/01/19 09:00 General appearance: age & developmentally appropriate, well-groomed, other (Sitting in her room underneath her blanks and bed linens. ) - Psychiatric Patient Orientation: Yes Person, Yes Time, Yes Place, Yes Circumstance Level of alertness: Alert Behavior: anxious, tearful (not tearful today) Psychomotor activity: Normal Eye Contact: Maintains Eye Contact Mood Description: Anxious Affect description: congruent with mood Speech Volume: Normal Speech pattern: normal rate, normal rhythm, normal tone, fluent Language & Vocabulary: consistent with education Thought Process: Circumstantial, Kite Thought Content: Yes Suicidal ideation (denies active thought at this time), Yes Paranoid delusion Attention Span Ability: Capable of Focused Attention Patient Reliability: Reliable Historian Fund of knowledge: Yes average Intelligence Estimate: Average Judgment: Fair Insight: Partial
[2019-04-01] MEDS: Budesonide/Formoterol 160/4.5 1 PUFF INH IH SCH ×2 (15:17→20:49)
[2019-04-01] MEDS: Metoprolol XL (24 HR) Succ 25 MG TAB.ER.24H PO SCH (19:06)
[2019-04-01] MEDS: hydrOXYzine pamoate 25 MG CAPSULE PO PRN (21:27)
[2019-04-02] MEDS: Hydrocortisone 10 MG TABLET PO SCH ×3 (09:58→16:25)
[2019-04-02] MEDS: Magnesium Oxide 400 MG TABLET PO SCH (09:58)
[2019-04-02] MEDS: amLODIPine 5 MG TABLET PO SCH (09:58)
[2019-04-02] MEDS: Nicotine 21 MG PATCH.TD24 TD SCH (10:01)
[2019-04-02] MEDS: Budesonide/Formoterol 160/4.5 1 PUFF INH IH SCH ×2 (10:01→21:30)
--- NOTE | 2019-04-02 10:41 | Psychiatry Progress Note ---
Date of Encounter: 04/02/19 Time of Encounter: 10:20 Subjective Interval history: Patient finally agreed, after meeting with her mother yesterday, to take PRN's last evening. Patient took PRN's of Vistaril as well as Seroquel. Patient slept over 8 hours last night, which was a great improvement. When I spoke to her this morning she stated she felt a little lightheaded, but that she did feel better getting some sleep. We discussed the fact that Dr. Cardoso has not called back to discuss her case. She asked about potentially calling Dr. Figueroa, her family doctor, and having him talk about medications with us. I told her that it was Wednesday and we continue to try and contact them, that no one would probably return our messages until Wednesday. She does state that she feels less anxious and worried this morning, but "it is early in the morning and will only get worse the rest the day, I have no doubt". She has been seen out in the unit milieu more often. She has been eating her meals. I encouraged her to continue to try the PRN's and told her that we would continue to try and contact her outpatient doctors to get feedback from them. She will not take scheduled medications until she gets their approval to start on psychotropic medications. (They told her it was dangerous and took her off them.) No active suicidal ideation at this time. No overt auditory or visual hallucinations. Whispers still present. Review of Systems Psychiatric: Reports: depression, anxiety, abnormal sleep pattern, suicidal ideation, change in appetite, auditory hallucinations, anhedonia, confusion, difficulty concentrating, hopelessness, irritability, mood swings Results - Vital Signs Vital Signs: Temp Pulse Resp BP Pulse Ox 98.3 F 76 18 112/81 98 04/02/19 09:00 04/02/19 09:00 04/02/19 09:00 04/02/19 09:00 04/02/19 09:00 - Impressions ITS Impressions Head CT 03/30/19 13:40 IMPRESSION: No acute intracranial abnormality or significant interval change from prior study 07/20/2018. D/ / John Sargent / John Sargent Interpreting Provider: John Sargent Chest X-Ray 03/30/19 14:34 IMPRESSION: Emphysematous changes. No new acute cardiopulmonary findings. D/ / Ban Zamorano MD / Ban Zamorano MD Interpreting Provider: Ban Zamorano MD Assessment and Plan (1) Suicidal ideation Current visit: Yes Status: Acute Risks, benefits, side effects, alternatives discussed w/pt: Yes Patient agreeable to treatment: Yes (2) Depression, major, recurrent, severe with psychosis Current visit: Yes Status: Acute Plan: Continue hospitalization, Close observation, Suicide Precautions per unit protocol, Group Therapy, Monitor sleep, Secure weapons Risks, benefits, side effects, alternatives discussed w/pt: Yes (Encouraged her to continue to take prn's) Patient agreeable to treatment: Yes (3) Mood disorder due to a general medical condition Current visit: Yes Status: Acute Plan: Continue hospitalization, Close observation, Suicide Precautions per unit protocol, Group Therapy, Monitor sleep, Secure weapons Additional Plan: Continue to try to reach Dr. Cardoso/Endocrinology regarding Renal Insufficiency and her Family Doctor, Dr. Figueroa to tell the patient she can take medication and recommendations from us. Consult Discharge Plan - Plan Referrals: [facility] [Outside] - 04/10/19 9:00 am (You have an appointment scheduled on Wednesday, April 10, 2019 at 9:[address] Bob Muniz, PhD for Counseling. You have an appointment scheduled for Sunday, June 16, 2019 at 1:[address] Richmond for medication management. Please contact the office at least 24 hours in advance if you are unable to keep your appointment(s). ) Yoselyn Cardoso MD [Partnered Physician] - 06/01/19 2:40 am (You have an appointment scheduled with Dr. Yoselyn Cardoso M.D. on May at 2:40 PM Please contact the office at the number above at least 24 hours in advance if you are unable to keep this appointment. ) Steve Figueroa MD [Non-Partnered Physician] - 04/25/19 9:45 am (You have an appointment scheduled with your primary care provider Dr. Steve Figueroa M.D. on Thursday, April 25, 2019 at 9:45 AM Please contact the office at the number above at least 24 hours in advance if you are unable to keep this appointment. ) Psychiatry Exam - Constitutional Vitals: Temp Pulse Resp BP Pulse Ox 98.3 F 76 18 112/81 98 04/02/19 09:00 04/02/19 09:00 04/02/19 09:00 04/02/19 09:00 04/02/19 09:00 General appearance: age & developmentally appropriate, well-groomed - Musculoskeletal Gait: normal Station: slouched Strength & Tone: normal for patient - Psychiatric Patient Orientation: Yes Person, Yes Time, Yes Place, Yes Circumstance Level of alertness: Sedated (mildly) Behavior: calm, cooperative, anxious (less) Psychomotor activity: Normal Eye Contact: Fleeting Contact Mood Description: Depressed Affect description: congruent with mood, flat Speech Volume: Normal Speech pattern: fluent, slowed Language & Vocabulary: consistent with education Thought Process: Circumstantial, Perseveration (decreased) Thought Content: Yes Suicidal ideation (denies active thoughts), Yes Paranoid delusion Attention Span Ability: Capable of Focused Attention Memory Description: Grossly Intact Patient Reliability: Questionable Historian Fund of knowledge: Yes average Intelligence Estimate: Average Judgment: Limited Insight: Partial
[2019-04-02] MEDS: Metoprolol XL (24 HR) Succ 25 MG TAB.ER.24H PO SCH (21:30)
[2019-04-02] MEDS: hydrOXYzine pamoate 25 MG CAPSULE PO PRN (21:30)
[2019-04-03] MEDS: Nicotine 21 MG PATCH.TD24 TD SCH (09:39)
[2019-04-03] MEDS: amLODIPine 5 MG TABLET PO SCH (09:39)
[2019-04-03] MEDS: Hydrocortisone 10 MG TABLET PO SCH ×2 (09:39→16:22)
[2019-04-03] MEDS: Magnesium Oxide 400 MG TABLET PO SCH (09:39)
[2019-04-03] MEDS: Budesonide/Formoterol 160/4.5 1 PUFF INH IH SCH ×2 (09:40→22:48)
--- NOTE | 2019-04-03 10:48 | Psychiatry Progress Note ---
Date of Encounter: 04/03/19 Time of Encounter: 10:46 Subjective Interval history: Dr. Cardoso did call back. We discussed the patient's case. She says she does not think that the patient in fact has adrenal insufficiency as they did a challenge and the patient's adrenals responded appropriately. She said that her plan had been to wean her down on the prednisone as an outpatient. She said that she would recommend we go down right now to 5 twice a day. She did not think that either of the adrenal issue nor the prednisone at such low doses would have any impact on her mental health. I tend to agree given the dose she has been on. DrThiago Cardoso also had no concerns about using psychotropic medication such as an atypical antipsychotic or SSRI in the patient. She continues to endorse paranoia and poor sleep. We discussed further her belief that she had been told in the past not to take psychiatric medications. I reviewed her records from her December admission at which time she was having issues related to interactions between Cymbalta and fluoxetine. At that time the psychiatry con oniel recommended keeping only the Cymbalta but made no mention of not using psychiatric medications in general. The concerns were just about potential interactions between the 2 medications. He said that her primary care physician then further weaned her off the Cymbalta once she was discharged. The patient feels hopeless. She feels very depressed. Her blood pressure was low today likely due to her poor oral intake related to her depression. She says she has been on Seroquel in the past and it made her legs jump. Review of Systems Psychiatric: Reports: depression, anxiety, abnormal sleep pattern, suicidal ideation, change in appetite, auditory hallucinations, anhedonia, confusion, difficulty concentrating, hopelessness, irritability, mood swings Results - Vital Signs Vital Signs: Temp Pulse Resp BP Pulse Ox 99 F 83 16 96/63 96 04/03/19 09:00 04/03/19 09:00 04/03/19 09:00 04/03/19 09:00 04/03/19 09:00 - Impressions ITS Impressions Head CT 03/30/19 13:40 IMPRESSION: No acute intracranial abnormality or significant interval change from prior study 07/20/2018. D/ / John Sargent / John Sargent Interpreting Provider: John Sargent Chest X-Ray 03/30/19 14:34 IMPRESSION: Emphysematous changes. No new acute cardiopulmonary findings. D/ / Ban Zamorano MD / Ban Zamorano MD Interpreting Provider: Ban Zamorano MD Assessment and Plan (1) Depression, major, recurrent, severe with psychosis Current visit: Yes Status: Acute Plan: Continue hospitalization, Close observation, Suicide Precautions per unit protocol, Encourage participation in unit milieu, Group Therapy, Monitor sleep, Monitor appetite Additional Plan: We will decrease her prednisone to 5 mg twice a day. Will change her Seroquel to Risperdal scheduled 1 mg by mouth daily at bedtime for psychosis. Encourage groups. Risks, benefits, side effects, alternatives discussed w/pt: Yes (Encouraged her to continue to take prn's) Patient agreeable to treatment: Yes Consult Discharge Plan - Plan Referrals: [facility] [Outside] - 04/10/19 9:00 am (You have an appointment scheduled on Wednesday, April 10, 2019 at 9:[address] Bob Muniz, PhD for Counseling. You have an appointment scheduled for Sunday, June 16, 2019 at 1:[address] Richmond for medication management. Please contact the office at least 24 hours in advance if you are unable to keep your appointment(s). ) Yoselyn Cardoso MD [Partnered Physician] - 06/01/19 2:40 am (You have an appointment scheduled with Dr. Yoselyn Cardoso M.D. on May at 2:40 PM Please contact the office at the number above at least 24 hours in advance if you are unable to keep this appointment. ) Steve Figueroa MD [Non-Partnered Physician] - 04/25/19 9:45 am (You have an appointment scheduled with your primary care provider Dr. Steve Figueroa M.D. on Thursday, April 25, 2019 at 9:45 AM Please contact the office at the number above at least 24 hours in advance if you are unable to keep this appointment. ) Psychiatry Exam - Constitutional Vitals: Temp Pulse Resp BP Pulse Ox 99 F 83 16 96/63 96 04/03/19 09:00 04/03/19 09:00 04/03/19 09:00 04/03/19 09:00 04/03/19 09:00 General appearance: age & developmentally appropriate, disheveled - Musculoskeletal Gait: slow Station: stooped - Psychiatric Patient Orientation: Yes Person, Yes Time, Yes Place, Yes Circumstance Level of alertness: Alert Behavior: tearful Psychomotor activity: Slowed Eye Contact: Minimal Contact Mood Description: Depressed Patient description of mood: "Sad" Affect description: blunted Speech Volume: Soft/Quiet Speech pattern: slowed Language & Vocabulary: consistent with education Thought Process: Intact Thought Content: Yes Suicidal ideation, No Homicidal ideation, Yes Paranoid delusion Perceptual Disturbances: Yes Auditory hallucinations Attention Span Ability: Capable of Focused Attention Memory Description: Grossly Intact Patient Reliability: Reliable Historian Fund of knowledge: Yes abstraction ability, Yes aware of current events Intelligence Estimate: Average Judgment: Limited Insight: Minimal
[2019-04-03] MEDS: Metoprolol XL (24 HR) Succ 25 MG TAB.ER.24H PO SCH (20:20)
[2019-04-03] MEDS ORDERED: risperiDONE 0.25 MG TABLET PO SCH (21:00)
[2019-04-03] MEDS: hydrOXYzine pamoate 25 MG CAPSULE PO PRN (22:48)
[2019-04-04] MEDS: *HR* LORazepam 1 MG TABLET PO PRN (01:41)
--- NOTE | 2019-04-04 10:41 | Psychiatry Progress Note ---
Date of Encounter: 04/04/19 Time of Encounter: 10:39 Subjective Interval history: Patient did not sleep last night despite the increased Risperdal. She also got Haldol 5 mg Ativan 1 mg and Benadryl 50 mg because she had increased paranoia and agitation. She believed that there were people outside of her room trying to kill her. She also became upset that people were trying to kill her family and that she was not there to protect them. She reports that today she feels very confused. She did appear somewhat thought blocking. She reported some depression. Review of Systems Constitutional: Denies: fever Eyes: Denies: eye pain Ears, Nose, Throat: Denies: ear pain Cardiovascular: Denies: chest pain Respiratory: Denies: cough Gastrointestinal: Denies: abdominal pain Genitourinary male: Denies: urgency Genitourinary female: Denies: urgency Musculoskeletal: Denies: back pain Integumentary: Denies: rash Neurological: Reports: weakness Psychiatric: Reports: depression, anxiety, abnormal sleep pattern, suicidal ideation, change in appetite, auditory hallucinations, anhedonia, confusion, difficulty concentrating, hopelessness, irritability, mood swings Endocrine: Reports: fatigue Hematologic/Lymphatic: Denies: easy bleeding Allergic/Immunologic: Denies: facial swelling Results - Vital Signs Vital Signs: Temp Pulse Resp BP Pulse Ox 97.8 F 69 16 138/75 96 04/03/19 19:36 04/03/19 19:36 04/03/19 19:36 04/03/19 19:36 04/03/19 09:00 - Impressions ITS Impressions Head CT 03/30/19 13:40 IMPRESSION: No acute intracranial abnormality or significant interval change from prior study 07/20/2018. D/ / John Sargent / John Sargent Interpreting Provider: John Sargent Chest X-Ray 03/30/19 14:34 IMPRESSION: Emphysematous changes. No new acute cardiopulmonary findings. D/ / Ban Zamorano MD / Ban Zamorano MD Interpreting Provider: Ban Zamorano MD Assessment and Plan (1) Depression, major, recurrent, severe with psychosis Current visit: Yes Status: Acute Plan: Continue hospitalization, Close observation, Suicide Precautions per unit protocol, Encourage participation in unit milieu, Group Therapy, Monitor sleep, Monitor appetite Additional Plan: Add Cymbalta 20 mg by mouth every morning. Increase Risperdal. Encourage group attendance. Risks, benefits, side effects, alternatives discussed w/pt: Yes (Encouraged her to continue to take prn's) Patient agreeable to treatment: Yes Consult Discharge Plan - Plan Referrals: [facility] [Outside] - 04/10/19 9:00 am (You have an appointment scheduled on Wednesday, April 10, 2019 at 9:[address] Bob Muniz, PhD for Counseling. You have an appointment scheduled for Sunday, June 16, 2019 at 1:[address] Richmond for medication management. Please contact the office at least 24 hours in advance if you are unable to keep your appointment(s). ) Yoselyn Cardoso MD [Partnered Physician] - 06/01/19 2:40 am (You have an appointment scheduled with Dr. Yoselyn Cardoso M.D. on May at 2:40 PM Please contact the office at the number above at least 24 hours in advance if you are unable to keep this appointment. ) Steve Figueroa MD [Non-Partnered Physician] - 04/25/19 9:45 am (You have an appointment scheduled with your primary care provider Dr. Steve Figueroa M.D. on Thursday, April 25, 2019 at 9:45 AM Please contact the office at the number above at least 24 hours in advance if you are unable to keep this appointment. ) Psychiatry Exam - Constitutional Vitals: Temp Pulse Resp BP Pulse Ox 97.8 F 69 16 138/75 96 04/03/19 19:36 04/03/19 19:36 04/03/19 19:36 04/03/19 19:36 04/03/19 09:00 General appearance: age & developmentally appropriate, disheveled - Musculoskeletal Gait: slow Station: stooped Strength & Tone: mild weakness - Psychiatric Patient Orientation: Yes Person, Yes Time, Yes Place Level of alertness: Sedated Behavior: fearful Psychomotor activity: Slowed Eye Contact: Minimal Contact Mood Description: Anxious Patient description of mood: scared Affect description: congruent with mood Speech Volume: Soft/Quiet Speech pattern: slowed Language & Vocabulary: consistent with education Thought Process: Thought Blocking Thought Content: Yes Suicidal ideation, Yes Paranoid delusion Perceptual Disturbances: Yes Auditory hallucinations, Yes Visual hallucinations Attention Span Ability: Unable to Focus Memory Description: Grossly Intact Patient Reliability: Reliable Historian Fund of knowledge: Yes average Intelligence Estimate: Average Judgment: Limited Insight: Minimal
[2019-04-04] MEDS ORDERED: risperiDONE 1 MG TABLET PO PRN (10:42)
[2019-04-04] MEDS: amLODIPine 5 MG TABLET PO SCH (10:46)
[2019-04-04] MEDS: Nicotine 21 MG PATCH.TD24 TD SCH (10:46)
[2019-04-04] MEDS: Magnesium Oxide 400 MG TABLET PO SCH (10:47)
[2019-04-04] MEDS: Hydrocortisone 10 MG TABLET PO SCH ×2 (10:47→14:11)
[2019-04-04] MEDS: Budesonide/Formoterol 160/4.5 1 PUFF INH IH SCH ×2 (10:48→21:13)
[2019-04-04] MEDS: hydrOXYzine pamoate 25 MG CAPSULE PO PRN ×2 (14:11→21:12)
[2019-04-04] MEDS ORDERED: risperiDONE 1 MG TABLET PO SCH (21:00)
[2019-04-04] MEDS: Metoprolol XL (24 HR) Succ 25 MG TAB.ER.24H PO SCH (21:12)
[2019-04-05] MEDS: *HR* LORazepam 1 MG TABLET PO PRN (02:35)
--- NOTE | 2019-04-05 09:08 | Discharge Summary ---
Date of Encounter: 04/05/19 Time of Encounter: 08:40 Diagnosis - Discharge Diagnosis (1) Depression, major, recurrent, severe with psychosis Status: Acute Medications - Discharge Medications Prescriptions: DULoxetine [Cymbalta] 20 mg PO DAILY #15 capsule. hydrOXYzikayli pamoate [HydrOXYzine Pamoate] 25 mg PO TID PRN #45 capsule PRN Reason: Anxiety risperiDONE [RisperDAL] 1 mg PO DAILY PRN #15 tablet PRN Reason: Psychosis risperiDONE [RisperDAL] 2 mg PO HS #15 tablet Budesonide/Formoterol 160/4.5 [Symbicort 160/4.5] 2 puff IH BID 02/24/17 [History] Ipratropium/Albuterol Neb [Duoneb] 3 ml IH Q6HR 12/23/18 [History] Albuterol Sulfate [Ventolin Hfa] 2 puff IH Q4-6H PRN #2 bottle 12/27/18 [Rx] Sodium Chloride [Sodium Chloride Tab] 1 gm PO DAILY #30 tablet 01/07/19 [Rx] Amlodipine Besylate 2.5 mg PO DAILY 03/30/19 [History] Hydrocortisone 5 mg PO 1500 03/30/19 [History] Hydrocortisone [Cortef] 10 mg PO 0800 03/30/19 [History] Magnesium Oxide [Magnesium] 400 mg PO DAILY 03/30/19 [History] Metoprolol Succinate [Toprol Xl] 25 mg PO QPM 03/30/19 [History] Omeprazole [PriLOSEC] 40 mg PO DAILY 03/30/19 [History] DULoxetine [Cymbalta] 20 mg PO DAILY #15 capsule. 04/05/19 [Rx] hydrOXYzine pamoate [HydrOXYzine Pamoate] 25 mg PO TID PRN #45 capsule 04/05/19 [Rx] risperiDONE [RisperDAL] 1 mg PO DAILY PRN #15 tablet 04/05/19 [Rx] risperiDONE [RisperDAL] 2 mg PO HS #15 tablet 04/05/19 [Rx] Allergy/AdvReac Type Severity Reaction Status Date / Time Penicillins Allergy Hives Verified 03/30/19 18:28 Tizanidine [From Zanaflex] Allergy See Verified 03/30/19 18:28 Comments clonazepam [From Klonopin] AdvReac Joint Pain Verified 03/30/19 18:28 codeine AdvReac Rash Verified 03/30/19 18:28 methocarbamol [From Robaxin] AdvReac See Verified 03/30/19 18:28 Comments tramadol [From Ultram] AdvReac See Verified 03/30/19 18:28 Comments Results Procedures and tests throughout hospitalization: Completed Lab Orders Category Date Time Status Acetaminophen Stat Lab 03/30/19 13:46 Completed Basic Metabolic Panel Stat Lab 03/30/19 13:46 Completed Complete Blood Count [HEME] Stat Lab 03/30/19 13:46 Completed Drug Screen, Urine [UCHEM] Stat Lab 03/30/19 13:36 Completed Ethanol Stat Lab 03/30/19 13:46 Completed Salicylate Stat Lab 03/30/19 13:46 Completed Urinalysis reflex Microscopic [URIN] Stat Lab 03/30/19 13:36 Completed Completed Imaging Orders Category Date Time Status CT head/brain wo con [CT] Stat Cat Scan 03/30/19 13:40 Completed XR chest 1V [XR] Stat Exams 03/30/19 14:34 Completed Lab Results 03/30/19 03/30/19 03/30/19 Range/Units 13:36 13:36 13:46 WBC 10.2 (4.3-11.1) K/mcL RBC 4.61 (3.82-4.97) M/mcL Hgb 14.3 (11.5-15.4) g/dL Hct 41.6 (35.3-44.9) % MCV 90.2 (83.0-100.0) fL MCH 31.0 (28.0-33.3) pg MCHC 34.4 (31.6-35.5) g/dL RDW 12.7 (11.5-14.5) % Plt Count 263 (140-400) K/mcL MPV 10.1 (9.4-12.4) fL Immature Gran % 0.4 (0-4) % Seg Neutrophils % 74.2 % Lymphocytes % 16.6 % Monocytes % 7.6 % Eosinophils % 0.7 % Basophils % 0.5 % Neutrophils # 7.6 (1.6-8.9) K/mcL Lymphocytes # 1.7 (0.6-4.6) K/mcL Monocytes # 0.8 (0.0-1.3) K/mcL Eosinophils # 0.1 (0.0-0.6) K/mcL Basophils # 0.1 (0.0-0.2) K/mcL Sodium (136-145) mEq/L Potassium (3.5-5.1) mEq/L Chloride (98-107) mEq/L Carbon Dioxide (23-29) mEq/L BUN (6-20) mg/dL Creatinine (0.60-1.20) mg/dL Est GFR ( Amer) (> 60) Est GFR (Non-Af Amer) (> 60) BUN/Creatinine Ratio (6-26) Glucose (70-105) mg/dL Calculated Osmolality (280-300) Calcium (8.6-10.3) mg/dL Urine Color Yellow (Yellow) Urine Clarity Clear (Clear) Urine pH 6.0 (5.0-8.0) pH Units Ur Specific [place] 1.009 L (1.010-1.025) Urine Protein Negative (Neg-Trace) mg/dL Urine Glucose (UA) Normal (Normal) mg/dL Urine Ketones Negative (Negative) mg/dL Urine Blood Negative (Negative) Urine Nitrite Negative (Negative) Urine Bilirubin Negative (Negative) Urine Urobilinogen Normal (Normal) mg/dL Ur Leukocyte Esterase Negative (Negative) Salicylates (15.0-30.0) mg/dL Urine Opiates Screen Negative (Cfbtov=911) ng/mL Acetaminophen (10-20) mcg/mL Ur Barbiturates Screen Negative (Nlkdks=342) ng/mL Ur Phencyclidine Scrn Negative (Cutoff=25) ng/mL Ur Amphetamines Screen Negative (Soxigs=9690) ng/mL U Benzodiazepines Scrn Negative (Rawtat=602) ng/mL Urine Cocaine Screen Negative (Cutoff= 300) ng/mL U Marijuana (THC) Screen Negative (Cutoff = 50) ng/mL Ur Drug Screen Interp See Below Ethyl Alcohol (Less than 10) mg/dL 03/30/19 Range/Units 13:46 WBC (4.3-11.1) K/mcL RBC (3.82-4.97) M/mcL Hgb (11.5-15.4) g/dL Hct (35.3-44.9) % MCV (83.0-100.0) fL MCH (28.0-33.3) pg MCHC (31.6-35.5) g/dL RDW (11.5-14.5) % Plt Count (140-400) K/mcL MPV (9.4-12.4) fL Immature Gran % (0-4) % Seg Neutrophils % % Lymphocytes % % Monocytes % % Eosinophils % % Basophils % % Neutrophils # (1.6-8.9) K/mcL Lymphocytes # (0.6-4.6) K/mcL Monocytes # (0.0-1.3) K/mcL Eosinophils # (0.0-0.6) K/mcL Basophils # (0.0-0.2) K/mcL Sodium 132 L (136-145) mEq/L Potassium 3.8 (3.5-5.1) mEq/L Chloride 99 (98-107) mEq/L Carbon Dioxide 26 (23-29) mEq/L BUN 6 (6-20) mg/dL Creatinine 0.58 L (0.60-1.20) mg/dL Est GFR ( Amer) > 60 (> 60) Est GFR (Non-Af Amer) > 60 (> 60) BUN/Creatinine Ratio 10 (6-26) Glucose 89 (70-105) mg/dL Calculated Osmolality 271 L (280-300) Calcium 9.4 (8.6-10.3) mg/dL Urine Color (Yellow) Urine Clarity (Clear) Urine pH (5.0-8.0) pH Units Ur Specific [place] (1.010-1.025) Urine Protein (Neg-Trace) mg/dL Urine Glucose (UA) (Normal) mg/dL Urine Ketones (Negative) mg/dL Urine Blood (Negative) Urine Nitrite (Negative) Urine Bilirubin (Negative) Urine Urobilinogen (Normal) mg/dL Ur Leukocyte Esterase (Negative) Salicylates < 2.5 L (15.0-30.0) mg/dL Urine Opiates Screen (Wjnowl=696) ng/mL Acetaminophen < 10 L (10-20) mcg/mL Ur Barbiturates Screen (Sxzoqw=359) ng/mL Ur Phencyclidine Scrn (Cutoff=25) ng/mL Ur Amphetamines Screen (Zxwsfz=2073) ng/mL U Benzodiazepines Scrn (Eofthj=149) ng/mL Urine Cocaine Screen (Cutoff= 300) ng/mL U Marijuana (THC) Screen (Cutoff = 50) ng/mL Ur Drug Screen Interp Ethyl Alcohol < 10 (Less than 10) mg/dL Provider Date of admission: 03/30/19 18:12 Primary care physician: PCP NONE Consults: 03/31/19 17:45 Consult to Endocrinology [CONS] Routine Consulting Provider: Endocrinology & Diabetes Jennifer Reason for Consult: Pt with adrenal insufficency and is currently being treated by Dr. Cardoso. Pt experiencing psychosis and mental status changes. Time Notified: 17:49 Call Completed: No Discharging clinician: Jeane Hirsch Psychiatry Exam - Constitutional Vitals: Temp Pulse Resp BP Pulse Ox 98.1 F 73 20 132/82 97 04/04/19 20:26 04/04/19 20:26 04/04/19 20:26 04/04/19 20:26 04/04/19 09:00 General appearance: age & developmentally appropriate, well-groomed, well- nourished - Musculoskeletal Gait: normal Station: relaxed Strength & Tone: normal for patient - Psychiatric Patient Orientation: Yes Person, Yes Time, Yes Place Level of alertness: Alert Behavior: calm, cooperative Psychomotor activity: Normal Eye Contact: Maintains Eye Contact Mood Description: Euthymic/stable Patient description of mood: ok Affect description: congruent with mood, full range Speech Volume: Normal Speech pattern: normal rate, normal rhythm, normal tone, fluent, spontaneous Language & Vocabulary: consistent with education Thought Process: Linear, Goal Oriented Thought Content: No Suicidal ideation, No Homicidal ideation, No Overt delusions Perceptual Disturbances: No Auditory hallucinations, No Visual hallucinations Attention Span Ability: Capable of Focused Attention Memory Description: Grossly Intact Patient Reliability: Reliable Historian Fund of knowledge: Yes abstraction ability, Yes aware of current events Intelligence Estimate: Average Judgment: Good Insight: Full Hospital Course Hospital course: Ms. العراقي is a 54 year old female who was admitted for depression and psychosis. She was started on Seroquel initially but she recalled that this had previously given her some akathisia. This was switched to Risperdal which was titrated up efficacy.She was also started back onC ymbalta which had helped her before cannon epression.I spoke with her printed circuit boards inspector who recommended reducing her steroid to 5 mg twice a day so we did this.Patient was educated of diagnosis and the risk-benefit side effects of this alternative treatment options and was monitored for responsiveness and side effects. Mood anxiety sleep and appetite interest improved as did future orientation. Self-harm thoughts subsided, thinking cleared, psychosis resolved, and mood stabilized. Patient was able to attend both individual and group therapy sessions as well as meet with the psychiatrist daily and urged to discuss any medication or treatment issues or other concerns. The patient was educated primarily by verbal means about their diagnosis and manifestations in their life. The option for treatment including group and individual therapy programming was offered to the patient in addition to the use of medications with all their potential risks, benefits, and side effects as well as the risks of not taking medication and non-adhereance were discussed with the patient at length. The patient was given the opportunity to ask questions and was noted to participate in the treatment in the planning process. The patient felt ready and eager to be discharged from the inpatient psychiatric unit to continue on with treatment as an outpatient. The patient agreed that is they were safe for this disposition. The patient was considered to be able to participate in informed consent and decision making with respect to medical, legal, and financial issues of the time of discharge. At the time of discharge the patient adamantly denied any concerns for lethality including suicidal or homicidal thoughts ideations or plans and was future oriented toward ongoing mental health care, medical follow-up and sobriety. Time spent discussing smoking cessation with patient: 3 to 10 minutes Does patient wish to continue nicotine replacement upon disc: No - Time Spent with Patient Total time spent providing and/or coordinating discharge services: 20 Less than 30 minutes Specific discharge activities: Interval history reviewed. Available labs reviewed . Psychotherapy provided. Patient had an opportunity to ask questions and address concerns. Patient was in agreement with the treatment plan. The risks benefits and side effects of medications were discussed with the patient, including alternatives and treatment. The patient was educated on the abstaining from any alcohol or illicit substances, following up with all scheduled appointments, and taking all medications as prescribed. Assessment and Plan - Patient/Caregiver Discharge Instructions Activity: resume usual activities as tolerated Diet: regular diet Additional Instructions: Continue current medications. Follow up with outpatient mental health. Encourage continued therapy in a group or individual setting. The patient was discharged to home. - Follow up Plan Follow up with: [facility] [Outside] - 04/10/19 9:00 am (You have an appointment scheduled on Wednesday, April 10, 2019 at 9:[address] Bob Muniz, PhD for Counseling. You have an appointment scheduled for Sunday, June 16, 2019 at 1:[address] Richmond for medication management. Please contact the office at least 24 hours in advance if you are unable to keep your appointment(s). ) Yoselyn Cardoso MD [Partnered Physician] - 06/01/19 2:40 am (You have an appointment scheduled with Dr. Yoselyn Cardoso M.D. on May at 2:40 PM Please contact the office at the number above at least 24 hours in advance if you are unable to keep this appointment. ) Steve Figueroa MD [Non-Partnered Physician] - 04/25/19 9:45 am (You have an appointment scheduled with your primary care provider Dr. Steve Figueroa M.D. on Thursday, April 25, 2019 at 9:45 AM Please contact the office at the number above at least 24 hours in advance if you are unable to keep this appointment. ) Functional capacity at discharge: independent ambulation Overall status at discharge: Stable Disposition: Home, Self-Care Quality - Multiple Antipsychotics Patient discharged on 2 or more antipsychotic medications: No Procedures - Procedures Procedures: Medication Management, Crisis Stabilization, Supportive Therapy, Group Therapy, Psychoeducational Therapy
[2019-04-05] MEDS: Magnesium Oxide 400 MG TABLET PO SCH (09:32)
[2019-04-05] MEDS: Hydrocortisone 10 MG TABLET PO SCH (09:32)
[2019-04-05] MEDS: amLODIPine 5 MG TABLET PO SCH (09:32)
[2019-04-05] MEDS: Nicotine 21 MG PATCH.TD24 TD SCH (09:33)
[2019-04-05] MEDS: Budesonide/Formoterol 160/4.5 1 PUFF INH IH SCH (10:05)
[2019-04-05 10:08] VITALS: BP 107/71
--- NOTE | 2019-04-05 11:03 | Electrocardiograph Report ---
[place] [facility] Test Date: 2019-03-30 Pat Name: Zahira العراقي Department: EXAM3 Room: 1A41 Gender: F Delivery Man: : 1965 Requested By: Shayne Ashley Order Number: [id number] Reading MD: Osbaldo Alonzo Measurements Intervals [place] Rate: 76 P: 80 TX: 134 QRS: 84 QRSD: 85 T: 47 QT: 372 QTc: 419 Interpretive Statements Sinus rhythm Probable left atrial enlargement Low voltage, precordial leads Electronically Signed On 04-05-2019 11:01:19 EDT by Osbaldo Alonzo
[2019-04-05] MEDS ORDERED: risperiDONE 1 MG TABLET PO SCH (21:00)
== END 2019-04-05 10:55 | disposition home or self-care (01) | DRG 885 ==
LOC: EMEROOARM 12:52 → SUATTDRO 18:12 → 1ANU 18:12
PROVIDERS: ADMIT Psychiatry & Neurology Psychiatry; ATTEND Psychiatry & Neurology Psychiatry

== ENCOUNTER 2019-05-27 21:49 | Inpatient (IN) ==
[2019-05-27 22:29] LABS: Bilirubin,Urine Negative (Negative); Blood,Urine Negative (Negative); Clarity,Urine Clear (Clear); Color,Urine Yellow (Yellow); Glucose,Urine (UA) Normal (Normal); Ketones,Urine Negative (Negative); Leukocyte Esterase,Urine Trace (Negative); Nitrite,Urine Negative (Negative); Protein,Urine Negative (Neg-Trace); Specific Gravity,Urine < 1.005 (1.010-1.025); Urobilinogen,Urine Normal (Normal)
[2019-05-27 22:39] LABS: Amphetamine Screen,Urine Negative ng/mL (Cutoff=1000); Barbiturate Screen,Urine Negative ng/mL (Cutoff=200); Benzodiazepines Screen,Urine Negative ng/mL (Cutoff=200); Cannabinoid Screen,Urine Negative ng/mL (Cutoff = 50); Cocaine Screen,Urine Negative ng/mL (Cutoff= 300); Opiate Screen,Urine Negative ng/mL (Cutoff=300); Phencyclidine Screen,Urine Negative ng/mL (Cutoff=25)
[2019-05-27 22:44] LABS: Basophils % 0.5 %; Eosinophils # 0.1 K/mcL (0.0-0.6); Eosinophils % 0.8 %; Hematocrit 40.5 % (35.3-44.9); Hemoglobin 13.9 g/dL (11.5-15.4); Immature Granulocytes % 0.4 % (0-4); Lymphocytes # 2.6 K/mcL (0.6-4.6); Lymphocytes % 30.8 %; Mean Corpuscular HGB Conc 34.3 g/dL (31.6-35.5); Mean Corpuscular Hemoglobin 30.7 pg (28.0-33.3); Mean Corpuscular Volume 89.4 fL (83.0-100.0); Mean Platelet Volume 9.2 fL (9.4-12.4); Monocytes # 0.6 K/mcL (0.0-1.3); Monocytes % 7.2 %; Platelet Count 295 K/mcL (140-400); Red Blood Count 4.53 M/mcL (3.82-4.97); Segmented Neutrophils % 60.3 %
[2019-05-27 22:45] LABS: Squamous Epithelial Cell,Urine Few per lpf (None-Few); WBC,Urine 0-3 per hpf (0-3)
[2019-05-27 22:46] LABS: White Blood Count 8.3 K/mcL (4.3-11.1)
[2019-05-27 23:02] LABS: Acetaminophen < 10 mcg/mL (10-20); BUN/Creatinine Ratio 7 (6-26); Blood Urea Nitrogen 4 mg/dL (6-20); Calcium 9.6 mg/dL (8.6-10.3); Carbon Dioxide 24 mEq/L (23-29); Chloride 99 mEq/L (98-107); Ethanol < 10 mg/dL (Less than 10); Glucose 89 mg/dL (70-105); Osmolality,Calculated 272 (280-300); Potassium 2.8 mEq/L (3.5-5.1); Salicylate < 2.5 mg/dL (15.0-30.0); Sodium 133 mEq/L (136-145); eGFR For African Americans > 60 (> 60); eGFR For Non-African Americans > 60 (> 60)
--- NOTE | 2019-05-27 23:42 | Emergency Department Note ---
Disposition Clinical Impression: Hypokalemia, Chronic schizophrenia Disposition: Admitted As Inpatient Condition: Fair Time of Disposition: 00:45 Psych HPI - General Chief Complaint: ED Psychiatric Symptoms Stated Complaint: Psych Eval Time Seen by Provider: 05/27/19 22:25 Source: patient Mode of arrival: private vehicle Nursing Notes Reviewed: Yes Vital Signs Reviewed: Yes - History of Present Illness HPI Narrative: 54 year old female presents to the emergency department with family for psychological evaluation. Per family patient is crying while looking at pictures stating "it is going to be hard to say goodbye to everybody", she has not been taking any of her medications, they [place] today carrying a hammer and a screwdriver and they felt she may harm herself. They state patient "is just not herself". They describe her being paranoid. Heart patient she states she does not have any suicidal or homicidal ideation, she is not taking her medicines because they make her feel weird, the Prozac which she previously was fine but now it is making her tingly and making her sic k, when she eats food she gets tingly all over and makes her pupils constrict, she is no longer taking her Prilosec because "they have done something to". She thinks the police are after her and she took a screwdriver and hammer to the [place] for protection in case the day/or animals came to get her. No medical complaints. Patient states she is not taking any medication in 3 weeks Pt complaint: other Onset (ago): week(s) Duration: constant, getting worse History of similar episodes: Yes Improves with: medication Worsens with: none Context: not taking psychiatric medications Alleged intoxication: No Associated Psychiatric Symptoms: other Traumatic symptoms: denies traumatic injury Treatments prior to arrival: none - Related Data Home Medications Medication Instructions Recorded Confirmed Budesonide/Formoterol 160/4.5 2 puff IH BID 02/24/17 03/30/19 [Symbicort 160/4.5] Ipratropium/Albuterol Neb [Duoneb] 3 ml IH Q6HR 12/23/18 03/30/19 Amlodipine Besylate 2.5 mg PO DAILY 03/30/19 03/30/19 Hydrocortisone 5 mg PO 1500 03/30/19 03/30/19 Hydrocortisone [Cortef] 10 mg PO 0800 03/30/19 03/30/19 Magnesium Oxide [Magnesium] 400 mg PO DAILY 03/30/19 03/30/19 Metoprolol Succinate [Toprol Xl] 25 mg PO QPM 03/30/19 03/30/19 Omeprazole [PriLOSEC] 40 mg PO DAILY 03/30/19 03/30/19 Previous Rx's Medication Instructions Recorded Albuterol Sulfate [Ventolin Hfa] 2 puff IH Q4-6H PRN #2 bottle 12/27/18 Sodium Chloride [Sodium Chloride 1 gm PO DAILY #30 tablet 01/07/19 Tab] DULoxetine [Cymbalta] 20 mg PO DAILY #15 capsule. 04/05/19 hydrOXYzine pamoate [Vistaril] 25 mg PO TID PRN #45 capsule 04/05/19 risperiDONE [RisperDAL] 1 mg PO DAILY PRN #15 tablet 04/05/19 risperiDONE [RisperDAL] 2 mg PO HS #15 tablet 04/05/19 Allergies Allergy/AdvReac Type Severity Reaction Status Date / Time Penicillins Allergy Hives Verified 03/30/19 18:28 Tizanidine [From Zanaflex] Allergy See Verified 03/30/19 18:28 Comments clonazepam [From Klonopin] AdvReac Joint Pain Verified 03/30/19 18:28 codeine AdvReac Rash Verified 03/30/19 18:28 methocarbamol [From Robaxin] AdvReac See Verified 03/30/19 18:28 Comments tramadol [From Ultram] AdvReac See Verified 03/30/19 18:28 Comments All systems ED: reviewed and negative except as stated. Review of Systems: As Per HPI Past Medical History - Past Medical History Attestation: Yes The following information was validated with the patient. Source: patient Medical history: Reports: COPD, GERD, osteoporosis, other Surgical history: Reports: herniorrhaphy Psychiatric history: Reports: anxiety, depression REGULATORY COMPLIANCE OFFICER history: Reports: no REGULATORY COMPLIANCE OFFICER history - Social History Smoking Status: Current every day smoker Smokeless Tobacco Status: No Alcohol use: Reports: none Drug use: Reports: none Physical Exam - General Limitations: no limitations General appearance: alert, in no apparent distress - Head Head exam: atraumatic, normocephalic, normal inspection - Eye Eye exam: Present: normal appearance - ENT ENT exam: mucous membranes moist - Neck Neck exam: Present: normal inspection, full ROM, trachea midline - Chest Chest inspection: Present: normal inspection, symmetric chest wall rise - Respiratory Respiratory exam: Present: normal lung sounds bilaterally - Cardiovascular Cardiovascular exam: Present: regular rate, normal rhythm, normal heart sounds - Abdominal Exam Abdominal exam: Present: soft, Non-Tender, normal bowel sounds - Neurological Exam Neurological exam: Present: alert, oriented X3 - Psychiatric Psychiatric exam: Present: flat affect - Skin Skin exam: Present: warm, dry, intact, normal color Course Course Narrative: We will female in no acute distress. Respirations are easy and even. We will obtain medical clearance patient can be evaluated by psychiatry. Medically cleared, psychiatry consulted and plan admission to their unit Vital Signs Temperature 97.9 F 05/27/19 21:56 Pulse Rate 86 05/27/19 21:56 Respiratory Rate 16 05/27/19 21:56 Blood Pressure 150/79 05/27/19 21:56 O2 Sat by Pulse Oximetry 99 05/27/19 21:56 Temperature 97.4 F L 05/28/19 01:10 Pulse Rate 70 05/28/19 01:10 Respiratory Rate 16 05/28/19 01:10 Blood Pressure 117/78 05/28/19 01:10 O2 Sat by Pulse Oximetry 99 05/28/19 01:10 Oxygen Delivery Oxygen Delivery Room Air Psych - Lab Data Result diagrams: 05/27/19 22:31 05/27/19 22:31 Lab Results 05/27/19 05/27/19 05/27/19 Range/Units 22:10 22:10 22:31 WBC 8.3 D (4.3-11.1) K/mcL RBC 4.53 (3.82-4.97) M/mcL Hgb 13.9 (11.5-15.4) g/dL Hct 40.5 (35.3-44.9) % MCV 89.4 (83.0-100.0) fL MCH 30.7 (28.0-33.3) pg MCHC 34.3 (31.6-35.5) g/dL RDW 12.0 (11.5-14.5) % Plt Count 295 (140-400) K/mcL MPV 9.2 L (9.4-12.4) fL Immature Gran % 0.4 (0-4) % Seg Neutrophils % 60.3 % Lymphocytes % 30.8 % Monocytes % 7.2 % Eosinophils % 0.8 % Basophils % 0.5 % Neutrophils # 5.0 (1.6-8.9) K/mcL Lymphocytes # 2.6 (0.6-4.6) K/mcL Monocytes # 0.6 (0.0-1.3) K/mcL Eosinophils # 0.1 (0.0-0.6) K/mcL Basophils # 0.0 (0.0-0.2) K/mcL Sodium (136-145) mEq/L Potassium (3.5-5.1) mEq/L Chloride (98-107) mEq/L Carbon Dioxide (23-29) mEq/L BUN (6-20) mg/dL Creatinine (0.60-1.20) mg/dL Est GFR ( Amer) (> 60) Est GFR (Non-Af Amer) (> 60) BUN/Creatinine Ratio (6-26) Glucose (70-105) mg/dL Calculated Osmolality (280-300) Calcium (8.6-10.3) mg/dL Urine Color Yellow (Yellow) Urine Clarity Clear (Clear) Urine pH 7.0 (5.0-8.0) pH Units Ur Specific [place] < 1.005 L (1.010-1.025) Urine Protein Negative (Neg-Trace) mg/dL Urine Glucose (UA) Normal (Normal) mg/dL Urine Ketones Negative (Negative) mg/dL Urine Blood Negative (Negative) Urine Nitrite Negative (Negative) Urine Bilirubin Negative (Negative) Urine Urobilinogen Normal (Normal) mg/dL Ur Leukocyte Esterase Trace H (Negative) Urine Microscopic WBC 0-3 (0-3) per hpf Ur Squamous Epith Cells Few (None-Few) per lpf Salicylates (15.0-30.0) mg/dL Urine Opiates Screen Negative (Qzzndv=933) ng/mL Ur Buprenorphine Scrn Negative (Cutoff=5) ng/mL Acetaminophen (10-20) mcg/mL Ur Barbiturates Screen Negative (Eetbvv=662) ng/mL Ur Phencyclidine Scrn Negative (Cutoff=25) ng/mL Ur Amphetamines Screen Negative (Oxmjhr=6874) ng/mL U Benzodiazepines Scrn Negative (Ynawhu=633) ng/mL Urine Cocaine Screen Negative (Cutoff= 300) ng/mL U Marijuana (THC) Screen Negative (Cutoff = 50) ng/mL Ur Drug Screen Interp See Below Ethyl Alcohol (Less than 10) mg/dL 05/27/19 Range/Units 22:31 WBC (4.3-11.1) K/mcL RBC (3.82-4.97) M/mcL Hgb (11.5-15.4) g/dL Hct (35.3-44.9) % MCV (83.0-100.0) fL MCH (28.0-33.3) pg MCHC (31.6-35.5) g/dL RDW (11.5-14.5) % Plt Count (140-400) K/mcL MPV (9.4-12.4) fL Immature Gran % (0-4) % Seg Neutrophils % % Lymphocytes % % Monocytes % % Eosinophils % % Basophils % % Neutrophils # (1.6-8.9) K/mcL Lymphocytes # (0.6-4.6) K/mcL Monocytes # (0.0-1.3) K/mcL Eosinophils # (0.0-0.6) K/mcL Basophils # (0.0-0.2) K/mcL Sodium 133 L (136-145) mEq/L Potassium 2.8 L (3.5-5.1) mEq/L Chloride 99 (98-107) mEq/L Carbon Dioxide 24 (23-29) mEq/L BUN 4 L (6-20) mg/dL Creatinine 0.58 L (0.60-1.20) mg/dL Est GFR ( Amer) > 60 (> 60) Est GFR (Non-Af Amer) > 60 (> 60) BUN/Creatinine Ratio 7 (6-26) Glucose 89 (70-105) mg/dL Calculated Osmolality 272 L (280-300) Calcium 9.6 (8.6-10.3) mg/dL Urine Color (Yellow) Urine Clarity (Clear) Urine pH (5.0-8.0) pH Units Ur Specific [place] (1.010-1.025) Urine Protein (Neg-Trace) mg/dL Urine Glucose (UA) (Normal) mg/dL Urine Ketones (Negative) mg/dL Urine Blood (Negative) Urine Nitrite (Negative) Urine Bilirubin (Negative) Urine Urobilinogen (Normal) mg/dL Ur Leukocyte Esterase (Negative) Urine Microscopic WBC (0-3) per hpf Ur Squamous Epith Cells (None-Few) per lpf Salicylates < 2.5 L (15.0-30.0) mg/dL Urine Opiates Screen (Knglal=032) ng/mL Ur Buprenorphine Scrn (Cutoff=5) ng/mL Acetaminophen < 10 L (10-20) mcg/mL Ur Barbiturates Screen (Zhxjuh=528) ng/mL Ur Phencyclidine Scrn (Cutoff=25) ng/mL Ur Amphetamines Screen (Zskepq=6039) ng/mL U Benzodiazepines Scrn (Anpzrb=003) ng/mL Urine Cocaine Screen (Cutoff= 300) ng/mL U Marijuana (THC) Screen (Cutoff = 50) ng/mL Ur Drug Screen Interp Ethyl Alcohol < 10 (Less than 10) mg/dL Psychiatric Medical Clearance - Medical Clearance Checklist Does the patient have a NEW psychiatric condition?: No Any abnormalities indicating possible medical illness?: No Any history of medical issues?: No Medical History: No Social History Section defined Any abnormal vital signs prior to transfer?: No Current Vitals: Last Vital Signs Temp 97.4 F L 05/28/19 01:10 Pulse 70 05/28/19 01:10 Resp 16 05/28/19 01:10 BP 117/78 05/28/19 01:10 Pulse Ox 99 05/28/19 01:10 Is the patient intoxicated or cognitively impaired?: No Psychiatric Lab Panel: Drug Levels and Toxicity 05/27/19 05/27/19 22:10 22:31 Urine Opiates Screen Negative Acetaminophen < 10 L Ur Barbiturates Screen Negative Ur Phencyclidine Scrn Negative Ur Amphetamines Screen Negative U Benzodiazepines Scrn Negative Urine Cocaine Screen Negative U Marijuana (THC) Screen Negative Ethyl Alcohol < 10 Any abnormalities on the physical exam?: No Any abnormal labs?: No Abnormal Labs: Abnormal lab results MPV 9.2 fL (9.4-12.4) L 05/27/19 22:31 Sodium 133 mEq/L (136-145) L 05/27/19 22:31 Potassium 2.8 mEq/L (3.5-5.1) L 05/27/19 22:31 BUN 4 mg/dL (6-20) L 05/27/19 22:31 Creatinine 0.58 mg/dL (0.60-1.20) L 05/27/19 22:31 Calculated Osmolality 272 (280-300) L 05/27/19 22:31 Ur Specific [place] < 1.005 (1.010-1.025) L 05/27/19 22:10 Ur Leukocyte Esterase Trace (Negative) H 05/27/19 22:10 Salicylates < 2.5 mg/dL (15.0-30.0) L 05/27/19 22:31 Acetaminophen < 10 mcg/mL (10-20) L 05/27/19 22:31 Does the patient require durable medical equiptment?: No Is the patient ambulatory?: Yes Is the patient a fall risk?: No Has the patient been medically cleared?: Yes Any acute medical condition require Tx prior to transfer?: No Statement of Medical Clearance: I have evaluated the patient, reviewed diagnostic information, and certify that the patient's medical condition is sufficiently stable that transfer to the psychiatric unit does not pose a significant risk of deterioration.
--- NOTE | 2019-05-28 01:01 | Emergency Department Note ---
Disposition Clinical Impression: Hypokalemia, Chronic schizophrenia Disposition: Admitted As Inpatient Condition: Fair Time of Disposition: 00:59 General Adult HPI - General Chief complaint: ED Psychiatric Symptoms Stated complaint: Psych Eval Time Seen by Provider: 05/27/19 22:25 Source: patient Mode of arrival: private vehicle Limitations: no limitations Nursing Notes Reviewed: Yes Vital Signs Reviewed: Yes - History of Present Illness Pain Scale: 0 - Related Data Home Medications Medication Instructions Recorded Confirmed Budesonide/Formoterol 160/4.5 2 puff IH BID 02/24/17 03/30/19 [Symbicort 160/4.5] Ipratropium/Albuterol Neb [Duoneb] 3 ml IH Q6HR 12/23/18 03/30/19 Amlodipine Besylate 2.5 mg PO DAILY 03/30/19 03/30/19 Hydrocortisone 5 mg PO 1500 03/30/19 03/30/19 Hydrocortisone [Cortef] 10 mg PO 0800 03/30/19 03/30/19 Magnesium Oxide [Magnesium] 400 mg PO DAILY 03/30/19 03/30/19 Metoprolol Succinate [Toprol Xl] 25 mg PO QPM 03/30/19 03/30/19 Omeprazole [PriLOSEC] 40 mg PO DAILY 03/30/19 03/30/19 Previous Rx's Medication Instructions Recorded Albuterol Sulfate [Ventolin Hfa] 2 puff IH Q4-6H PRN #2 bottle 12/27/18 Sodium Chloride [Sodium Chloride 1 gm PO DAILY #30 tablet 01/07/19 Tab] DULoxetine [Cymbalta] 20 mg PO DAILY #15 capsule. 04/05/19 hydrOXYzine pamoate [Vistaril] 25 mg PO TID PRN #45 capsule 04/05/19 risperiDONE [RisperDAL] 1 mg PO DAILY PRN #15 tablet 04/05/19 risperiDONE [RisperDAL] 2 mg PO HS #15 tablet 04/05/19 Allergies Allergy/AdvReac Type Severity Reaction Status Date / Time Penicillins Allergy Hives Verified 03/30/19 18:28 Tizanidine [From Zanaflex] Allergy See Verified 03/30/19 18:28 Comments clonazepam [From Klonopin] AdvReac Joint Pain Verified 03/30/19 18:28 codeine AdvReac Rash Verified 03/30/19 18:28 methocarbamol [From Robaxin] AdvReac See Verified 03/30/19 18:28 Comments tramadol [From Ultram] AdvReac See Verified 03/30/19 18:28 Comments Past Medical History - Past Medical History Medical history: Reports: COPD, GERD, osteoporosis, other Surgical history: Reports: herniorrhaphy Psychiatric history: Reports: anxiety, depression GENERAL COUNSEL history: Reports: no GENERAL COUNSEL history - Social History Smoking Status: Current every day smoker Smokeless Tobacco Status: No Alcohol use: Reports: none Drug use: Reports: none Physical Exam - General Limitations: no limitations General appearance: alert, in no apparent distress Course Vital Signs Temperature 97.9 F 05/27/19 21:56 Pulse Rate 86 05/27/19 21:56 Respiratory Rate 16 05/27/19 21:56 Blood Pressure 150/79 05/27/19 21:56 O2 Sat by Pulse Oximetry 99 05/27/19 21:56 Temperature 97.4 F L 05/28/19 01:10 Pulse Rate 70 05/28/19 01:10 Respiratory Rate 16 05/28/19 01:10 Blood Pressure 117/78 05/28/19 01:10 O2 Sat by Pulse Oximetry 99 05/28/19 01:10 Oxygen Delivery Oxygen Delivery Room Air Medical Decision Making - Lab Data Lab results reviewed: Yes I reviewed the patient's lab results. Result diagrams: 05/27/19 22:31 05/27/19 22:31 Lab Results 05/27/19 05/27/19 05/27/19 Range/Units 22:10 22:10 22:31 WBC 8.3 D (4.3-11.1) K/mcL RBC 4.53 (3.82-4.97) M/mcL Hgb 13.9 (11.5-15.4) g/dL Hct 40.5 (35.3-44.9) % MCV 89.4 (83.0-100.0) fL MCH 30.7 (28.0-33.3) pg MCHC 34.3 (31.6-35.5) g/dL RDW 12.0 (11.5-14.5) % Plt Count 295 (140-400) K/mcL MPV 9.2 L (9.4-12.4) fL Immature Gran % 0.4 (0-4) % Seg Neutrophils % 60.3 % Lymphocytes % 30.8 % Monocytes % 7.2 % Eosinophils % 0.8 % Basophils % 0.5 % Neutrophils # 5.0 (1.6-8.9) K/mcL Lymphocytes # 2.6 (0.6-4.6) K/mcL Monocytes # 0.6 (0.0-1.3) K/mcL Eosinophils # 0.1 (0.0-0.6) K/mcL Basophils # 0.0 (0.0-0.2) K/mcL Sodium (136-145) mEq/L Potassium (3.5-5.1) mEq/L Chloride (98-107) mEq/L Carbon Dioxide (23-29) mEq/L BUN (6-20) mg/dL Creatinine (0.60-1.20) mg/dL Est GFR ( Amer) (> 60) Est GFR (Non-Af Amer) (> 60) BUN/Creatinine Ratio (6-26) Glucose (70-105) mg/dL Calculated Osmolality (280-300) Calcium (8.6-10.3) mg/dL Urine Color Yellow (Yellow) Urine Clarity Clear (Clear) Urine pH 7.0 (5.0-8.0) pH Units Ur Specific [place] < 1.005 L (1.010-1.025) Urine Protein Negative (Neg-Trace) mg/dL Urine Glucose (UA) Normal (Normal) mg/dL Urine Ketones Negative (Negative) mg/dL Urine Blood Negative (Negative) Urine Nitrite Negative (Negative) Urine Bilirubin Negative (Negative) Urine Urobilinogen Normal (Normal) mg/dL Ur Leukocyte Esterase Trace H (Negative) Urine Microscopic WBC 0-3 (0-3) per hpf Ur Squamous Epith Cells Few (None-Few) per lpf Salicylates (15.0-30.0) mg/dL Urine Opiates Screen Negative (Dewfld=134) ng/mL Ur Buprenorphine Scrn Negative (Cutoff=5) ng/mL Acetaminophen (10-20) mcg/mL Ur Barbiturates Screen Negative (Tzhwjb=361) ng/mL Ur Phencyclidine Scrn Negative (Cutoff=25) ng/mL Ur Amphetamines Screen Negative (Ufcssw=1121) ng/mL U Benzodiazepines Scrn Negative (Owfcwm=676) ng/mL Urine Cocaine Screen Negative (Cutoff= 300) ng/mL U Marijuana (THC) Screen Negative (Cutoff = 50) ng/mL Ur Drug Screen Interp See Below Ethyl Alcohol (Less than 10) mg/dL 05/27/19 Range/Units 22:31 WBC (4.3-11.1) K/mcL RBC (3.82-4.97) M/mcL Hgb (11.5-15.4) g/dL Hct (35.3-44.9) % MCV (83.0-100.0) fL MCH (28.0-33.3) pg MCHC (31.6-35.5) g/dL RDW (11.5-14.5) % Plt Count (140-400) K/mcL MPV (9.4-12.4) fL Immature Gran % (0-4) % Seg Neutrophils % % Lymphocytes % % Monocytes % % Eosinophils % % Basophils % % Neutrophils # (1.6-8.9) K/mcL Lymphocytes # (0.6-4.6) K/mcL Monocytes # (0.0-1.3) K/mcL Eosinophils # (0.0-0.6) K/mcL Basophils # (0.0-0.2) K/mcL Sodium 133 L (136-145) mEq/L Potassium 2.8 L (3.5-5.1) mEq/L Chloride 99 (98-107) mEq/L Carbon Dioxide 24 (23-29) mEq/L BUN 4 L (6-20) mg/dL Creatinine 0.58 L (0.60-1.20) mg/dL Est GFR ( Amer) > 60 (> 60) Est GFR (Non-Af Amer) > 60 (> 60) BUN/Creatinine Ratio 7 (6-26) Glucose 89 (70-105) mg/dL Calculated Osmolality 272 L (280-300) Calcium 9.6 (8.6-10.3) mg/dL Urine Color (Yellow) Urine Clarity (Clear) Urine pH (5.0-8.0) pH Units Ur Specific [place] (1.010-1.025) Urine Protein (Neg-Trace) mg/dL Urine Glucose (UA) (Normal) mg/dL Urine Ketones (Negative) mg/dL Urine Blood (Negative) Urine Nitrite (Negative) Urine Bilirubin (Negative) Urine Urobilinogen (Normal) mg/dL Ur Leukocyte Esterase (Negative) Urine Microscopic WBC (0-3) per hpf Ur Squamous Epith Cells (None-Few) per lpf Salicylates < 2.5 L (15.0-30.0) mg/dL Urine Opiates Screen (Zrwzti=064) ng/mL Ur Buprenorphine Scrn (Cutoff=5) ng/mL Acetaminophen < 10 L (10-20) mcg/mL Ur Barbiturates Screen (Mmeton=321) ng/mL Ur Phencyclidine Scrn (Cutoff=25) ng/mL Ur Amphetamines Screen (Fdfurw=4962) ng/mL U Benzodiazepines Scrn (Vmcglh=527) ng/mL Urine Cocaine Screen (Cutoff= 300) ng/mL U Marijuana (THC) Screen (Cutoff = 50) ng/mL Ur Drug Screen Interp Ethyl Alcohol < 10 (Less than 10) mg/dL Attestation Statement - Attestation Attestation: I, Tyler Hunt MD, personally evaluated this patient and discussed their management with the midlevel provicer, PAC/SYSTEMS MECHANIC. I reviewed the midlevel provider's note and agree with the documented findings, medical decision making, and plan of care. 54-year-old female presents to the emergency department with a complaint of just not feeling herself. She has not been taking her psychiatric medications. Family concerned about patient possibly being suicidal. She has been very paranoid. Patient denied suicidal or homicidal ideation. On examination patient is a well-developed thin female in no acute distress. She is alert and oriented 3. There is no cyanosis or diaphoresis. Breath sounds are clear and equal bilaterally. Heart regular rate and rhythm. Abdomen soft and nontender with normal bowel sounds. Labs reviewed. Potassium 2.8. She was given a dose of oral potassium. Patient medically cleared for psychiatric evaluation. [address] psychiatry department was consulted and evaluated patient in the emergency department. After evaluation patient is being admitted to the [address] psychiatric unit.
[2019-05-28] MEDS ORDERED: Haloperidol Lactate 5 MG/ML VIAL IM PRN (01:24)
[2019-05-28] MEDS ORDERED: hydrOXYzine pamoate 25 MG CAPSULE PO PRN (01:24)
[2019-05-28] MEDS ORDERED: traZODone 50 MG TABLET PO PRN (01:24)
[2019-05-28] MEDS ORDERED: Acetaminophen 325 MG TABLET PO PRN (01:24)
[2019-05-28] MEDS ORDERED: MOM Conc 10 ML UD.LIQ PO PRN (01:24)
[2019-05-28] MEDS ORDERED: *HR* LORazepam 1 MG TABLET PO PRN (01:24)
[2019-05-28] MEDS ORDERED: Mag Hydrox/Al Hydrox/Simeth 30 ML UDC PO PRN (01:24)
[2019-05-28] MEDS ORDERED: *HR* LORazepam 2 MG/ML VIAL IM PRN (01:24)
--- NOTE | 2019-05-28 09:29 | Psychiatry History & Physical ---
Date of Encounter: 05/28/19 Time of Encounter: 09:21 History of Present Illness Patient Stated Chief Complaint: "my family made me come" Medicare Admission Attestation: For traditional Medicare patients the provided hospital inpatient services are reasonable and necessary and in the case of services not specified as inpatient-only under 42 CFR 419.22 (n), that they are appropriately provided as inpatient services in accordance 42 CFR 412.3. For Critical Access Hospital the patient may reasonably be expected to be discharged or transferred to a hospital within 96 hours after admission to the Critical Access Hospital. Admitted From: Home Plans for Post Hospital Care: Home History of Present Illness: Ms. العراقي is a 54 year old female who was admitted secondary to a psychotic depression. Client was hospitalized at [facility] in March with a similar presentation and was discharged on Cymbalta and Risperdal. Client was linked with the [facility] for outpatient care. Her Cymbalta was changed to Prozac by her outpatient providers and shortly after that client stopped her medications. Family brought client back to the hospital stating she is not doing well. Client admits to some paranoia that someone wants to harm her and that her mood is low. Denies SI/HI/AH/VH. She has a history of one previous suicide attempt via overdose. Definitely minimizes her symptoms. States she does not want to be on medications. Claims "too many doctors" are involved in her care and that her medications keep getting changed. Claims she is dizzy when she eats and that her pupils are too small. Believes these are the things that need fixed. Denies any AOD use. Physically healthy except for COPD. Lives with mother. Mother and brother are the ones who brought her to the hosp ital. Client looks depressed. Blunted affect. Minimal reactivity. Upset that she is here. Seems willing to restart meds in order to get discharged but does not want Cymbalta or Prozac. Signed med consents for Lexapro and Risperdal. Past Med Surg Social Fam HX - Past Medical History Medical history: COPD, GERD, hypertension, osteoporosis, other - Past Psychiatric History Psychiatric history: Reports: depression, prior suicide attempt, previous psychiatric hospitalization Family psychiatric history: Yes Family Psychiatric History Details: Paternal grandmother Family History of Suicide: None - Past Surgical History Surgical History: herniorrhaphy - Social History Smoking Status: Current every day smoker Smokeless Tobacco Status: No Alcohol use: none Drug use: none - Family History Grandfather Living Status: Hx Family Cancer: Yes Medications & Allergies Budesonide/Formoterol 160/4.5 [Symbicort 160/4.5] 2 puff IH BID 02/24/17 [History] Ipratropium/Albuterol Neb [Duoneb] 3 ml IH Q6HR 12/23/18 [History] Albuterol Sulfate [Ventolin Hfa] 2 puff IH Q4-6H PRN #2 bottle 12/27/18 [Rx] Sodium Chloride [Sodium Chloride Tab] 1 gm PO DAILY #30 tablet 01/07/19 [Rx] Amlodipine Besylate 2.5 mg PO DAILY 03/30/19 [History] Hydrocortisone 5 mg PO 1500 03/30/19 [History] Hydrocortisone [Cortef] 10 mg PO 0800 03/30/19 [History] Magnesium Oxide [Magnesium] 400 mg PO DAILY 03/30/19 [History] Metoprolol Succinate [Toprol Xl] 25 mg PO QPM 03/30/19 [History] Omeprazole [PriLOSEC] 40 mg PO DAILY 03/30/19 [History] DULoxetine [Cymbalta] 20 mg PO DAILY #15 capsule. 04/05/19 [Rx] hydrOXYzine pamoate [Vistaril] 25 mg PO TID PRN #45 capsule 04/05/19 [Rx] risperiDONE [RisperDAL] 1 mg PO DAILY PRN #15 tablet 04/05/19 [Rx] risperiDONE [RisperDAL] 2 mg PO HS #15 tablet 04/05/19 [Rx] Allergy/AdvReac Type Severity Reaction Status Date / Time Penicillins Allergy Hives Verified 03/30/19 18:28 Tizanidine [From Zanaflex] Allergy See Verified 03/30/19 18:28 Comments clonazepam [From Klonopin] AdvReac Joint Pain Verified 03/30/19 18:28 codeine AdvReac Rash Verified 03/30/19 18:28 methocarbamol [From Robaxin] AdvReac See Verified 03/30/19 18:28 Comments tramadol [From Ultram] AdvReac See Verified 03/30/19 18:28 Comments Review of Systems Constitutional: Denies: fever, chills, weakness, weight change Eyes: Denies: eye pain, vision change Ears, Nose, Throat: Denies: ear pain, throat pain, dental pain, hearing loss, congestion Cardiovascular: Denies: chest pain, palpitations, dyspnea on exertion Respiratory: Denies: cough, dyspnea, wheezes Gastrointestinal: Denies: abdominal pain, nausea, vomiting, diarrhea, constipation Genitourinary female: Denies: urgency, dysuria, frequency, abnormal menses, dyspareunia Musculoskeletal: Denies: joint swelling, joint pain Integumentary: Denies: rash, lesions, pruritus Neurological: Denies: headache, weakness, numbness, memory loss Endocrine: Denies: fatigue, heat or cold intolerance Hematologic/Lymphatic: Denies: easy bruising, lymphadenopathy Allergic/Immunologic: Denies: urticaria, itchy eyes Exam - HEENT Head exam IM: Present: atraumatic Eye exam IM: Present: EOMI, normal appearance, PERRL ENT exam IM: Present: normal exam - Neurological Neurological exam: Present: CN II-XII intact - Respiratory Respiratory exam IM: Present: wheezes - GI/Abdominal GI/Abdominal exam IM: Present: normal bowel sounds, soft. Absent: tenderness - Extremities Extremities exam IM: Present: full ROM - Skin Skin exam IM: Present: dry, warm - Constitutional Vitals: Temp Pulse Resp BP Pulse Ox 98 F 90 16 99/65 97 05/28/19 09:00 05/28/19 09:00 05/28/19 09:00 05/28/19 09:00 05/28/19 09:00 General appearance: thin - Musculoskeletal Gait: normal Station: relaxed Strength & Tone: normal for patient - Psychiatric Patient Orientation: Yes Person, Yes Time, Yes Place Level of alertness: Alert Behavior: calm, cooperative Psychomotor activity: Normal Eye Contact: Maintains Eye Contact Mood Description: Irritable Affect description: blunted Speech Volume: Normal Speech pattern: normal rate, normal rhythm, normal tone, fluent, spontaneous Language & Vocabulary: consistent with education Thought Process: Evasive Thought Content: No Suicidal ideation, No Homicidal ideation, Yes Paranoid delusion Perceptual Disturbances: No Auditory hallucinations, No Visual hallucinations Attention Span Ability: Capable of Focused Attention Memory Description: Grossly Intact Patient Reliability: Questionable Historian Fund of knowledge: Yes abstraction ability Intelligence Estimate: Average Judgment: Limited Insight: Minimal Results - Drug Levels and Toxicology Drug Levels and Toxicology: Drug Levels and Toxicity 05/27/19 05/27/19 22:10 22:31 Urine Opiates Screen Negative Acetaminophen < 10 L Ur Barbiturates Screen Negative Ur Phencyclidine Scrn Negative Ur Amphetamines Screen Negative U Benzodiazepines Scrn Negative Urine Cocaine Screen Negative U Marijuana (THC) Screen Negative Ethyl Alcohol < 10 - Labs Labs: Laboratory Last Values WBC 8.3 K/mcL (4.3-11.1) D 05/27/19 22:31 RBC 4.53 M/mcL (3.82-4.97) 05/27/19 22:31 Hgb 13.9 g/dL (11.5-15.4) 05/27/19 22:31 Hct 40.5 % (35.3-44.9) 05/27/19 22:31 MCV 89.4 fL (83.0-100.0) 05/27/19 22:31 MCH 30.7 pg (28.0-33.3) 05/27/19 22: MCHC 34.3 g/dL (31.6-35.5) 05/27/19 22:31 RDW 12.0 % (11.5-14.5) 05/27/19 22:31 Plt Count 295 K/mcL (140-400) 05/27/19 22:31 MPV 9.2 fL (9.4-12.4) L 05/27/19 22:31 Immature Gran % 0.4 % (0-4) 05/27/19 22: Seg Neutrophils % 60.3 % 05/27/19 22:31 Lymphocytes % 30.8 % 05/27/19 22:31 Monocytes % 7.2 % 05/27/19 22:31 Eosinophils % 0.8 % 05/27/19 22:31 Basophils % 0.5 % 05/27/19 22:31 Neutrophils # 5.0 K/mcL (1.6-8.9) 05/27/19 22:31 Lymphocytes # 2.6 K/mcL (0.6-4.6) 05/27/19 22:31 Monocytes # 0.6 K/mcL (0.0-1.3) 05/27/19 22:31 Eosinophils # 0.1 K/mcL (0.0-0.6) 05/27/19 22:31 Basophils # 0.0 K/mcL (0.0-0.2) 05/27/19 22:31 Sodium 133 mEq/L (136-145) L 05/27/19 22:31 Potassium 2.8 mEq/L (3.5-5.1) L 05/27/19 22:31 Chloride 99 mEq/L (98-107) 05/27/19 22:31 Carbon Dioxide 24 mEq/L (23-29) 05/27/19 22:31 BUN 4 mg/dL (6-20) L 05/27/19 22:31 Creatinine 0.58 mg/dL (0.60-1.20) L 05/27/19 22:31 Est GFR ( Amer) > 60 (> 60) 05/27/19 22:31 Est GFR (Non-Af Amer) > 60 (> 60) 05/27/19 22:31 BUN/Creatinine Ratio 7 (6-26) 05/27/19 22:31 Glucose 89 mg/dL (70-105) 05/27/19 22:31 Calculated Osmolality 272 (280-300) L 05/27/19 22:31 Calcium 9.6 mg/dL (8.6-10.3) 05/27/19 22:31 Urine Color Yellow (Yellow) 05/27/19 22:10 Urine Clarity Clear (Clear) 05/27/19 22:10 Urine pH 7.0 pH Units (5.0-8.0) 05/27/19 22:10 Ur Specific [place] < 1.005 (1.010-1.025) L 05/27/19 22:10 Urine Protein Negative mg/dL (Neg-Trace) 05/27/19 22:10 Urine Glucose (UA) Normal mg/dL (Normal) 05/27/19 22:10 Urine Ketones Negative mg/dL (Negative) 05/27/19 22:10 Urine Blood Negative (Negative) 05/27/19 22:10 Urine Nitrite Negative (Negative) 05/27/19 22:10 Urine Bilirubin Negative (Negative) 05/27/19 22:10 Urine Urobilinogen Normal mg/dL (Normal) 05/27/19 22:10 Ur Leukocyte Esterase Trace (Negative) H 05/27/19 22:10 Urine Microscopic WBC 0-3 per hpf (0-3) 05/27/19 22:10 Ur Squamous Epith Cells Few per lpf (None-Few) 05/27/19 22:10 Salicylates < 2.5 mg/dL (15.0-30.0) L 05/27/19 22:31 Urine Opiates Screen Negative ng/mL (Wntmps=459) 05/27/19 22:10 Ur Buprenorphine Scrn Negative ng/mL (Cutoff=5) 05/27/19 22:10 Acetaminophen < 10 mcg/mL (10-20) L 05/27/19 22:31 Ur Barbiturates Screen Negative ng/mL (Kupyub=319) 05/27/19 22:10 Ur Phencyclidine Scrn Negative ng/mL (Cutoff=25) 05/27/19 22:10 Ur Amphetamines Screen Negative ng/mL (Njusyj=6006) 05/27/19 22:10 U Benzodiazepines Scrn Negative ng/mL (Whizzc=759) 05/27/19 22:10 Urine Cocaine Screen Negative ng/mL (Cutoff= 300) 05/27/19 22:10 U Marijuana (THC) Screen Negative ng/mL (Cutoff = 50) 05/27/19 22:10 Ur Drug Screen Interp See Below 05/27/19 22:10 Ethyl Alcohol < 10 mg/dL (Less than 10) 05/27/19 22:31 Assessment and Plan (1) Depression, major, recurrent, severe with psychosis Current visit: No Status: Acute Plan: Admit inpatient for safety and stabilization, Close observation, Suicide Precautions per unit protocol, Encourage participation in unit milieu, Group Therapy, Monitor sleep, Monitor appetite Risks, benefits, side effects, alternatives discussed w/pt: Yes Patient agreeable to treatment: Yes Plans for Post Hospital Care: Home Estimated Length of Stay (Days): 4
[2019-05-29] MEDS: risperiDONE 1 MG TABLET PO SCH ×2 (01:48→22:13)
--- NOTE | 2019-05-29 12:03 | Psychiatry Progress Note ---
Date of Encounter: 05/29/19 Time of Encounter: 09:20 Subjective Interval history: Client seen in [facility] area. She describes mood as "anxious and depressed". Affect is congruent with mood. She does not endorse present paranoia and doesn't acknowledge previous history of it, describes it as "paranoia that my family thinks I have". She refused her Risperdal yesterday and denies visual and auditory hallucinations today. She is eating better today with increase in appetite. Reports sleeping well and continues to ask "when she get out of here". Review of Systems Constitutional: Denies: fever, chills, weakness Eyes: Denies: vision change Ears, Nose, Throat: Denies: congestion Cardiovascular: Denies: chest pain, palpitations, dyspnea on exertion Respiratory: Denies: cough Gastrointestinal: Denies: abdominal pain, nausea, vomiting, diarrhea, constipation Genitourinary female: Denies: urgency, dysuria, frequency Musculoskeletal: Denies: myalgia Integumentary: Denies: rash, lesions, pruritus Neurological: Denies: headache, weakness, numbness, confusion, memory loss, abnormal gait Psychiatric: Reports: depression, anxiety, abnormal sleep pattern, change in appetite. Denies: suicidal ideation, homicidal ideation, auditory hallucinations, visual hallucinations Endocrine: Denies: fatigue Results - Vital Signs Vital Signs: Temp Pulse Resp BP Pulse Ox 97.9 F 73 16 107/72 97 05/28/19 20:14 05/28/19 20:14 05/28/19 20:14 05/28/19 20:14 05/28/19 20:14 Assessment and Plan (1) Depression, major, recurrent, severe with psychosis Current visit: No Status: Acute Plan: Continue hospitalization, Close observation, Suicide Precautions per unit protocol, Encourage participation in unit milieu, Group Therapy, Monitor sleep, Monitor appetite Risks, benefits, side effects, alternatives discussed w/pt: Yes Patient agreeable to treatment: Yes Consult Discharge Plan - Plan Referrals: NONE,PCP [Primary Care Provider] - - Attending Attestation I examined this patient and my medical decision-making was reviewed with the Resident Physician. I agree with the documented findings, disposition and treatment plan as described except to the extent set forth below. Agree with mental status and plan. Psychiatry Exam - Constitutional Vitals: Temp Pulse Resp BP Pulse Ox 97.9 F 73 16 107/72 97 05/28/19 20:14 05/28/19 20:14 05/28/19 20:14 05/28/19 20:14 05/28/19 20:14 General appearance: age & developmentally appropriate - Musculoskeletal Gait: normal Station: relaxed Strength & Tone: normal for patient - Psychiatric Patient Orientation: Yes Person, Yes Time, Yes Place, Yes Circumstance Level of alertness: Alert, Follows commands Behavior: calm, cooperative, tearful Psychomotor activity: Normal Eye Contact: Maintains Eye Contact Mood Description: Depressed, Anxious Affect description: congruent with mood Speech Volume: Normal Speech pattern: normal rate, normal rhythm, normal tone, fluent Language & Vocabulary: consistent with education Thought Process: Intact, Logical, Linear Thought Content: Yes Intact, No Suicidal ideation, No Homicidal ideation, No Ideas of reference, No Preoccupation Perceptual Disturbances: No Reacting to internal stimuli, No Auditory hallucinations, No Visual hallucinations, No Olfactory hallucinations Attention Span Ability: Capable of Focused Attention Memory Description: Grossly Intact, Immediate Intact, Recent Intact Patient Reliability: Reliable Historian Fund of knowledge: Yes average Judgment: Fair Insight: Partial
--- NOTE | 2019-05-30 09:01 | Psychiatry Progress Note ---
Date of Encounter: 05/30/19 Time of Encounter: 08:54 Subjective Interval history: Yesterday patient had discussed not taking her Risperdal which we had agreed to a trial without it she had not been exhibiting any psychotic symptoms since she had been here. She had not been responding to internal stimuli or appearing paranoid or otherwise to have fixed false beliefs and she denied hallucinations or delusions. However I noted that she also did not take her Lexapro yesterday. Today I discussed this with her at length. She said she thought it was Prozac which is why she did not take it. We explained what the medication was and answered all of her questions about it and encourage her to take this. She did deny suicidal or homicidal thoughts, ideations, or plans. She is future oriented and is eager to get home and see her family. She has been interacting appropriately in groups. Review of Systems Psychiatric: Denies: suicidal ideation, homicidal ideation, auditory hallucinations, visual hallucinations Results - Vital Signs Vital Signs: Temp Pulse Resp BP Pulse Ox 97.8 F 70 14 128/81 100 05/29/19 21:00 05/29/19 21:00 05/29/19 21:05/29/19 21:00 05/29/19 21:00 Assessment and Plan (1) Depression, major, recurrent, severe with psychosis Current visit: No Status: Acute Plan: Continue hospitalization, Close observation, Suicide Precautions per unit protocol, Encourage participation in unit milieu, Group Therapy, Monitor sleep, Monitor appetite Additional Plan: Encourage compliance with Lexapro to help with depression. She is not currently having psychotic symptoms and so if she chooses not to use the Risperdal she does have capacity to make this decision and we discussed risks, benefits, side effects, of this and alternative treatments as well as the risk of not using medication for this. Her pink slip expires tomorrow so if she continues to not meet probate criteria she will likely be discharged at that time. Risks, benefits, side effects, alternatives discussed w/pt: Yes Patient agreeable to treatment: Yes Consult Discharge Plan - Plan Referrals: NONE,PCP [Primary Care Provider] - Psychiatry Exam - Constitutional Vitals: Temp Pulse Resp BP Pulse Ox 97.8 F 70 14 128/81 100 05/29/19 21:05/29/19 21:00 05/29/19 21:00 05/29/19 21:00 05/29/19 21:00 General appearance: age & developmentally appropriate, well-groomed, well- nourished - Musculoskeletal Gait: normal Station: relaxed Strength & Tone: normal for patient - Psychiatric Patient Orientation: Yes Person, Yes Time, Yes Place Level of alertness: Alert Behavior: calm, cooperative Psychomotor activity: Normal Eye Contact: Maintains Eye Contact Mood Description: Euthymic/stable Patient description of mood: ok Affect description: congruent with mood, full range Speech Volume: Normal Speech pattern: normal rate, normal rhythm, normal tone, fluent, spontaneous Language & Vocabulary: consistent with education Thought Process: Linear, Goal Oriented Thought Content: No Suicidal ideation, No Homicidal ideation, No Overt delusions Perceptual Disturbances: No Auditory hallucinations, No Visual hallucinations Attention Span Ability: Capable of Focused Attention Memory Description: Grossly Intact Patient Reliability: Reliable Historian Fund of knowledge: Yes abstraction ability, Yes aware of current events Intelligence Estimate: Average Judgment: Good Insight: Full
[2019-05-30] MEDS: risperiDONE 1 MG TABLET PO SCH (21:00)
--- NOTE | 2019-05-31 13:13 | Psychiatry Progress Note ---
Date of Encounter: 05/31/19 Time of Encounter: 11:00 Subjective Interval history: Client seen today at bedside. She continues refusal to take her medication on unit including Lexapro and Risperdal. She is not responding to internal stimuli or appearing paranoid or fixed false beliefs, and denies hallucinations or delusions. Discussed with her today need for medication compliance and about probate hearing approaching because pink slip is up today. She is guarded and lacks judgment and insight today, denies suicidal and homicidal thought/plan/ideations. She is future oriented and eager to get home to see family. She has been participating in group and interacting with others on unit appropriately. When contacted client's mother, who she lives with currently, she had concerns about client possibly being discharged to her care and not taking her medications. Review of Systems Eyes: Denies: eye pain Ears, Nose, Throat: Denies: ear pain, throat pain, dental pain, hearing loss Cardiovascular: Denies: chest pain, palpitations, edema, syncope Gastrointestinal: Denies: abdominal pain, nausea, vomiting, diarrhea, constipation Musculoskeletal: Denies: joint pain, myalgia Integumentary: Denies: rash Neurological: Denies: headache, weakness, confusion Psychiatric: Denies: depression, anxiety, suicidal ideation, homicidal ideation, auditory hallucinations, visual hallucinations Results - Vital Signs Vital Signs: Temp Pulse Resp BP Pulse Ox 98.4 F 69 16 102/70 99 05/31/19 09:00 05/31/19 09:00 05/31/19 09:00 05/31/19 09:00 05/31/19 09:00 Assessment and Plan (1) Depression, major, recurrent, severe with psychosis Current visit: No Status: Acute Plan: Continue hospitalization, Close observation, Suicide Precautions per unit protocol, Encourage participation in unit milieu, Group Therapy, Monitor sleep, Secure weapons, Family/Supportive other meeting Risks, benefits, side effects, alternatives discussed w/pt: Yes Patient agreeable to treatment: Yes Consult Discharge Plan - Plan Referrals: NONE,PCP [Primary Care Provider] - - Attending Attestation I examined this patient and my medical decision-making was reviewed with the Resident Physician. I agree with the documented findings, disposition and treatment plan as described except to the extent set forth below. Agree with mental status, assessment, and plan. Continue medications, encourage group therapy, therapist to work on discharge planning. Patient was very paranoid about medications. Circular thinking. Probate process started Psychiatry Exam - Constitutional Vitals: Temp Pulse Resp BP Pulse Ox 98.4 F 69 16 102/70 99 05/31/19 09:00 05/31/19 09:00 05/31/19 09:00 05/31/19 09:00 05/31/19 09:00 General appearance: age & developmentally appropriate - Psychiatric Patient Orientation: Yes Person, Yes Time, Yes Place, Yes Circumstance Level of alertness: Alert, Follows commands Behavior: calm, guarded Psychomotor activity: Normal Eye Contact: Maintains Eye Contact Mood Description: Euthymic/stable Affect description: congruent with mood Speech Volume: Normal Speech pattern: normal rate, normal rhythm, normal tone, fluent, appropriate Language & Vocabulary: consistent with education Thought Process: Intact, Linear Thought Content: Yes Intact, No Suicidal ideation, No Homicidal ideation, No Overt delusions, No Preoccupation Perceptual Disturbances: No Reacting to internal stimuli, No Auditory hallucinations, No Visual hallucinations Attention Span Ability: Capable of Focused Attention, Capable of Sustained Attention Memory Description: Grossly Intact, Immediate Intact, Recent Intact Patient Reliability: Reliable Historian Fund of knowledge: Yes average Intelligence Estimate: Average Judgment: Limited Insight: Partial
[2019-05-31] MEDS: risperiDONE 1 MG TABLET PO SCH (21:00)
--- NOTE | 2019-06-01 11:38 | Psychiatry Progress Note ---
Date of Encounter: 06/01/19 Time of Encounter: 10:30 Subjective Interval history: Patient continues to be paranoid and guarded. She continues to be fearful that we are somehow trying to poison her with medications. She did want her son to visit last night and this was not able to happen. She reports feeling sad but attributes this mainly to being here is not with her family. She denies suicidal thoughts, ideations, or plans. Review of Systems Psychiatric: Reports: depression (Paranoia), anxiety. Denies: suicidal ideation, homicidal ideation, auditory hallucinations, visual hallucinations Results - Vital Signs Vital Signs: Temp Pulse Resp BP Pulse Ox 98.0 F 84 16 106/74 94 06/01/19 07:41 06/01/19 07:41 06/01/19 07:41 06/01/19 07:41 06/01/19 07:41 Assessment and Plan (1) Depression, major, recurrent, severe with psychosis Current visit: No Status: Acute Plan: Continue hospitalization, Close observation, Suicide Precautions per unit protocol, Encourage participation in unit milieu, Group Therapy, Monitor sleep, Monitor appetite Additional Plan: Probate paperwork was completed yesterday. She is still refusing medications. I discussed with her multiple different medication options and she continues to feel that they are going to harm her. We have encouraged her to also talk with her family. Risks, benefits, side effects, alternatives discussed w/pt: Yes Patient agreeable to treatment: Yes Consult Discharge Plan - Plan Referrals: NONE,PCP [Primary Care Provider] - Psychiatry Exam - Constitutional Vitals: Temp Pulse Resp BP Pulse Ox 98.0 F 84 16 106/74 94 06/01/19 07:41 06/01/19 07:41 06/01/19 07:41 06/01/19 07:41 06/01/19 07:41 General appearance: disheveled - Musculoskeletal Gait: slow Station: stooped Strength & Tone: abnormal extension - Psychiatric Patient Orientation: Yes Person, Yes Time, Yes Place Level of alertness: Alert Behavior: guarded, suspicious Psychomotor activity: Slowed Eye Contact: No Eye Contact Mood Description: Depressed Patient description of mood: Sad Affect description: dysphoric Speech Volume: Soft/Quiet Speech pattern: slowed Language & Vocabulary: limited Thought Process: Perseveration (On concerns about medications being poison) Thought Content: No Suicidal ideation, No Homicidal ideation, Yes Paranoid delusion Perceptual Disturbances: No Auditory hallucinations, No Visual hallucinations Attention Span Ability: Unable to Focus, Unable to Sustain Attention Memory Description: Grossly Intact Patient Reliability: Questionable Historian Fund of knowledge: Yes average Intelligence Estimate: Average Judgment: Poor Insight: None
[2019-06-01] MEDS: risperiDONE 1 MG TABLET PO SCH (21:20)
--- NOTE | 2019-06-02 10:14 | Psychiatry Progress Note ---
Date of Encounter: 06/02/19 Time of Encounter: 08:50 Subjective Interval history: Zahira continues to be very paranoid about her medications. She refuses to take any but then says she will take them of her mother Takes her home and watches her take them. She says she is fearful side effects. I discussed all different options with her and side effect profiles of different medication she continues to refuse. She denies suicidal ideations. She does not appear paranoid about other topics. He had a good visit with her son last night. Review of Systems Psychiatric: Reports: depression (Paranoia), anxiety, other (Paranoia). Denies: suicidal ideation, homicidal ideation, auditory hallucinations, visual hallucinations Results - Vital Signs Vital Signs: Temp Pulse Resp BP Pulse Ox 98.5 F 97 16 143/84 95 06/01/19 20:39 06/01/19 20:39 06/01/19 20:39 06/01/19 20:39 06/01/19 20:39 Assessment and Plan (1) Depression, major, recurrent, severe with psychosis Current visit: No Status: Acute Plan: Continue hospitalization, Close observation, Suicide Precautions per unit protocol, Encourage participation in unit milieu, Group Therapy, Monitor sleep, Monitor appetite Additional Plan: Continue to encourage medications. We have filed probate paperwork. Aldo the therapist is going to call her mother to see about her level of concern with the patient not taking medication. Risks, benefits, side effects, alternatives discussed w/pt: Yes Patient agreeable to treatment: Yes Consult Discharge Plan - Plan Referrals: NONE,PCP [Primary Care Provider] - Psychiatry Exam - Constitutional Vitals: Temp Pulse Resp BP Pulse Ox 98.5 F 97 16 143/84 95 06/01/19 20:39 06/01/19 20:39 06/01/19 20:39 06/01/19 20:39 06/01/19 20:39 General appearance: age & developmentally appropriate - Musculoskeletal Gait: slow Station: stooped Strength & Tone: normal for patient - Psychiatric Patient Orientation: Yes Person, Yes Time, Yes Place Level of alertness: Alert Behavior: guarded, suspicious Psychomotor activity: Normal Eye Contact: Maintains Eye Contact Mood Description: Euthymic/stable Patient description of mood: Okay Affect description: congruent with mood Speech Volume: Normal Speech pattern: normal rate, normal rhythm, normal tone, fluent, spontaneous Language & Vocabulary: consistent with education Thought Process: Circumstantial Thought Content: No Suicidal ideation, No Homicidal ideation, Yes Paranoid delusion Perceptual Disturbances: No Auditory hallucinations, No Visual hallucinations Attention Span Ability: Capable of Focused Attention Memory Description: Grossly Intact Patient Reliability: Reliable Historian Fund of knowledge: Yes abstraction ability, Yes aware of current events Intelligence Estimate: Average Judgment: Limited Insight: Partial
[2019-06-02] MEDS: risperiDONE 1 MG TABLET PO SCH (21:24)
--- NOTE | 2019-06-03 08:53 | Psychiatry Progress Note ---
Date of Encounter: 06/03/19 Time of Encounter: 07:50 Subjective Interval history: Patient continues to feel very paranoid particularly around medications and feels like they will harm her. She continues to refuse medications. We are waiting on the probate Court hearing. She denies suicidal thoughts. Review of Systems Psychiatric: Reports: depression (Paranoia), anxiety, other (Paranoia). Denies: suicidal ideation, homicidal ideation, auditory hallucinations, visual hallucinations Results - Vital Signs Vital Signs: Temp Pulse Resp BP Pulse Ox 98.4 F 74 18 123/84 99 06/02/19 21:00 06/02/19 21:00 06/02/19 21:00 06/02/19 21:00 06/02/19 21:00 Assessment and Plan (1) Depression, major, recurrent, severe with psychosis Current visit: No Status: Acute Plan: Continue hospitalization, Close observation, Suicide Precautions per unit protocol, Encourage participation in unit milieu, Group Therapy, Monitor sleep, Monitor appetite Additional Plan: Continue to encourage medications and to offer different types of medicine and explained the various risks and benefits of different options and of not taking medications. The therapist was to call her family yesterday and not sure if this is completed or not and he is not here today. Family who was previously very concerned about taking her home without medications. Being probate Court hearing. Risks, benefits, side effects, alternatives discussed w/pt: Yes Patient agreeable to treatment: Yes Consult Discharge Plan - Plan Referrals: [facility] [Outside] Psychiatry Exam - Constitutional Vitals: Temp Pulse Resp BP Pulse Ox 98.4 F 74 18 123/84 99 06/02/19 21:00 06/02/19 21:00 06/02/19 21:00 06/02/19 21:00 06/02/19 21:00 General appearance: age & developmentally appropriate, disheveled - Musculoskeletal Gait: slow Station: stooped Strength & Tone: mild weakness - Psychiatric Patient Orientation: Yes Person, Yes Time, Yes Place, Yes Circumstance Level of alertness: Alert Behavior: guarded, suspicious, withdrawn Psychomotor activity: Slowed Eye Contact: Intense Contact Mood Description: Depressed Patient description of mood: I want to go Affect description: blunted Speech Volume: Soft/Quiet Speech pattern: slowed Language & Vocabulary: limited Thought Process: [place] Thought Content: Yes Paranoid delusion Perceptual Disturbances: No Auditory hallucinations, No Visual hallucinations Attention Span Ability: Capable of Focused Attention Memory Description: Grossly Intact Patient Reliability: Questionable Historian Fund of knowledge: Yes average Intelligence Estimate: Average Judgment: Poor Insight: None
[2019-06-03] MEDS: risperiDONE 1 MG TABLET PO SCH (21:21)
--- NOTE | 2019-06-04 09:42 | Psychiatry Progress Note ---
Date of Encounter: 06/04/19 Time of Encounter: 08:00 Subjective Interval history: Patient continues to be paranoid about taking medications. She continues to refuse all them despite being told about many different options. She will not eat her food and will only eat the prepared snacks her mother brings into her. She is polite and interactive with peers on the unit. She denies suicidal or homicidal thoughts, ideations or plans. Review of Systems Psychiatric: Reports: depression (Paranoia), anxiety, other (Paranoia). Denies: suicidal ideation, homicidal ideation, auditory hallucinations, visual hallucinations Results - Vital Signs Vital Signs: Temp Pulse Resp BP Pulse Ox 97.6 F 80 18 122/86 96 06/03/19 21:00 06/03/19 21:00 06/03/19 21:00 06/03/19 21:00 06/03/19 21:00 Assessment and Plan (1) Depression, major, recurrent, severe with psychosis Current visit: No Status: Acute Plan: Continue hospitalization, Close observation, Suicide Precautions per unit protocol, Encourage participation in unit milieu, Group Therapy, Monitor sleep, Monitor appetite Additional Plan: Continue to encourage oral medications. Continue to offer different alternatives and discussed risk benefit side effects with her as well as the risks of not taking medications. Probate court hearing scheduled for Wednesday. Therapist is to call her mother am not sure if he accomplish this on Wednesday if not he will have to do it on Wednesday. Risks, benefits, side effects, alternatives discussed w/pt: Yes Patient agreeable to treatment: Yes Consult Discharge Plan - Plan Referrals: [facility] [Outside] Psychiatry Exam - Constitutional Vitals: Temp Pulse Resp BP Pulse Ox 97.6 F 80 18 122/86 96 06/03/19 21:00 06/03/19 21:00 06/03/19 21:00 06/03/19 21:00 06/03/19 21:00 General appearance: age & developmentally appropriate, disheveled - Musculoskeletal Gait: slow Station: stooped Strength & Tone: normal for patient - Psychiatric Patient Orientation: Yes Person, Yes Time, Yes Place Level of alertness: Alert Behavior: guarded, withdrawn Psychomotor activity: Slowed Eye Contact: Minimal Contact Mood Description: Anxious Patient description of mood: I just want to go home Affect description: blunted, anxious Speech Volume: Soft/Quiet Speech pattern: normal rate Language & Vocabulary: consistent with education Thought Process: Perseveration Thought Content: No Suicidal ideation, No Homicidal ideation, Yes Paranoid delusion Perceptual Disturbances: No Auditory hallucinations, No Visual hallucinations Attention Span Ability: Capable of Focused Attention Memory Description: Grossly Intact Patient Reliability: Reliable Historian Fund of knowledge: Yes abstraction ability, Yes aware of current events Intelligence Estimate: Average Judgment: Poor Insight: None
[2019-06-04] MEDS: risperiDONE 1 MG TABLET PO SCH (21:49)
[2019-06-05 10:01] VITALS: BP 94/6
--- NOTE | 2019-06-05 11:17 | Discharge Summary ---
Date of Encounter: 06/05/19 Time of Encounter: 11:06 Diagnosis - Discharge Diagnosis (1) Depression, major, recurrent, severe with psychosis Status: Acute Medications - Discharge Medications Prescriptions: Escitalopram [Lexapro] 10 mg PO DAILY #30 tablet risperiDONE [RisperDAL] 2 mg PO HS #30 tablet Budesonide/Formoterol 160/4.5 [Symbicort 160/4.5] 2 puff IH BID 02/24/17 [History] Albuterol Sulfate [Ventolin Hfa] 2 puff IH Q4-6H PRN #2 bottle 12/27/18 [Rx] Sodium Chloride [Sodium Chloride Tab] 1 gm PO DAILY #30 tablet 01/07/19 [Rx] Amlodipine Besylate 2.5 mg PO DAILY 03/30/19 [History] Hydrocortisone 5 mg PO BID 03/30/19 [History] Magnesium Oxide [Magnesium] 400 mg PO DAILY 03/30/19 [History] Metoprolol Succinate [Toprol Xl] 25 mg PO QPM 03/30/19 [History] FLUoxetine HCl [Prozac] 20 mg PO DAILY 05/28/19 [History] Pantoprazole Sodium 40 mg PO DAILY 05/28/19 [History] Ranitidine HCl [Zantac] 300 mg PO HS 05/28/19 [History] Escitalopram [Lexapro] 10 mg PO DAILY #30 tablet 06/05/19 [Rx] risperiDONE [RisperDAL] 2 mg PO HS #30 tablet 06/05/19 [Rx] Allergy/AdvReac Type Severity Reaction Status Date / Time Penicillins Allergy Hives Verified 03/30/19 18:28 Tizanidine [From Zanaflex] Allergy See Verified 03/30/19 18:28 Comments clonazepam [From Klonopin] AdvReac Joint Pain Verified 03/30/19 18:28 codeine AdvReac Rash Verified 03/30/19 18:28 methocarbamol [From Robaxin] AdvReac See Verified 03/30/19 18:28 Comments tramadol [From Ultram] AdvReac See Verified 03/30/19 18:28 Comments Results Procedures and tests throughout hospitalization: Completed Lab Orders Category Date Time Status Acetaminophen Stat Lab 05/27/19 22:31 Completed Basic Metabolic Panel Stat Lab 05/27/19 22:31 Completed Complete Blood Count [HEME] Stat Lab 05/27/19 22:31 Completed Drug Screen, Urine [UCHEM] Stat Lab 05/27/19 22:10 Completed Ethanol Stat Lab 05/27/19 22:31 Completed Salicylate Stat Lab 05/27/19 22:31 Completed Urinalysis reflex Microscopic [URIN] Stat Lab 05/27/19 22:10 Completed Provider Date of admission: 05/28/19 00:53 Primary care physician: PCP NONE Discharging clinician: Levon Morocho Psychiatry Exam - Constitutional Vitals: Temp Pulse Resp BP Pulse Ox 98 F 83 16 94/6 97 06/05/19 09:00 06/05/19 09:00 06/05/19 09:00 06/05/19 09:00 06/05/19 09:00 General appearance: age & developmentally appropriate - Musculoskeletal Gait: normal Station: relaxed Strength & Tone: normal for patient - Psychiatric Patient Orientation: Yes Person, Yes Time, Yes Place, Yes Circumstance Level of alertness: Alert, Follows commands Behavior: anxious, guarded, withdrawn Psychomotor activity: Normal Eye Contact: Minimal Contact Mood Description: Anxious Patient description of mood: anxious to go home Affect description: congruent with mood Speech Volume: Normal Speech pattern: normal rate, normal rhythm, normal tone, fluent Language & Vocabulary: consistent with education Thought Process: Intact, Logical, Linear, Goal Oriented Thought Content: Yes Intact, No Suicidal ideation, No Homicidal ideation, No Overt delusions, No Ideas of reference, No Preoccupation, Yes Paranoid delusion Perceptual Disturbances: No Reacting to internal stimuli, No Auditory hallucinations, No Visual hallucinations Attention Span Ability: Capable of Focused Attention, Capable of Sustained Attention Memory Description: Grossly Intact, Immediate Intact, Recent Intact Patient Reliability: Reliable Historian Fund of knowledge: Yes average Intelligence Estimate: Average Judgment: Fair Insight: Partial Hospital Course Hospital course: Ms. العراقي is a 54 year old female admitted secondary to psychotic depression on 05/28/19. She was hospitalized at [facility] in March with similar presentation and was discharged on Cymbalta and Risperdal. She was linked with the [facility] for outpatient care. Cymbalta was changed to Prozac by outpatient providers and client stopped her medications soon after. Family brought client back to the hospital soon after. Client admitted with paranoia stating "someone wants to harm me". Denied SI/HI/AH/VH upon admission to [facility]. Lexapro and Risperdal were restarted in unit. Client refused to take any medications while on unit. She continued to endorse paranoia but denied SI/HI/AH/VH. We have spoken with client's mother about discharging client to her care. She has agreed to do so at this time. Client has verbally agreed to take her medications at home and acknowledges that we discussed readmission if she continues to endorse paranoia and refuse to take her med ications. Time spent discussing smoking cessation with patient: 3 to 10 minutes Does patient wish to continue nicotine replacement upon disc: No - Time Spent with Patient Total time spent providing and/or coordinating discharge services: Greater than 30 minutes Assessment and Plan - Patient/Caregiver Discharge Instructions Activity: resume usual activities as tolerated, other (Start medications at home. Discussed importance of starting medications at home. Client verbally agreed to take medications at home and mother will be managing medications. ) Diet: regular diet - Follow up Plan Follow up with: [facility] [Outside] - 06/06/19 1:30 pm (You have an appointment scheduled on Friday, June 21, 2019 at 1:[address] Bob Muniz, PhD for Counseling. You have an appointment scheduled for Thursday, June 06, 2019 at 1:30 PM with Ricardo Deng APRN, [facility] for medication management. Please contact the office at least 24 hours in advance if you are unable to keep your appointment(s). ) Yoselyn Cardoso MD [Partnered Physician] - Steve Figueroa MD [Non-Partnered Physician] - 06/15/19 10:15 am (You have an appointment scheduled with this provider on May at 10:15 AM. Please keep all of your healthcare providers informed of any changes in your medications, treatments or medical conditions. Please contact the office at the number above at least 24 hours in advance if you are unable to keep this appointment. ) Functional capacity at discharge: independent ambulation Overall status at discharge: Stable Disposition: Home, Self-Care Quality - Multiple Antipsychotics Patient discharged on 2 or more antipsychotic medications: No - Justification Documentation of: No documentation of justification - Attending Attestation I examined this patient and my medical decision-making was reviewed with the Resident Physician. I agree with the documented findings, disposition and treatment plan as described except to the extent set forth below. Client has been in the hospital for over a week. She has refused medications the entire time. She has also consistently denied SI/HI/AH/VH. She has been calm but angry about being locked up against her will. Client is scheduled to have a probate/forced med hearing tomorrow but technically does not meet inpatient criteria. On the unit she has been meeting her basic needs. She has been keeping up with her hygiene. She has been eating and sleeping adequately. No behavior problems. Client lives with her mother. Spoke with mother for more than twenty minutes today to come up with the best plan of action. Discussed how client clearly has signs of depression/psychosis and that she would benefit from treatment. However, discussed whether that treatment can be forced at this point. Mother in agreement with this communications writer. Wants her daughter to be well/does not want her to get worse but agrees that forced hospitalization/medications may not be the way to go. Both mother and this communications writer spoke with client independently. Client agreed to the following plan: she will take the Risperdal and Lexapro at home. She has taken both meds before and tolerates them without issue. Mother will manage medications. Client agreeable to taking meds in front of mother. If there is any concern for client's safety or the safety of others, her mother will call the police and have client brought back to the hospital. Client will follow up on an outpatient basis provided she continues to be compliant with treatment at home and there are no safety concerns. Total time spent with client greater than 30 minutes. Procedures - Procedures Procedures: Medication Management
== END 2019-06-05 11:39 | disposition home or self-care (01) | DRG 885 ==
LOC: EMEROOARM 21:49 → SUATTDRO 05-28 00:53 → 1ANU 05-28 00:53
PROVIDERS: ADMIT Psychiatry & Neurology Psychiatry; ATTEND Psychiatry & Neurology Psychiatry

== ENCOUNTER 2019-07-30 15:31 | Inpatient (IN) ==
[2019-07-30 16:06] LABS: Bilirubin,Urine Negative (Negative); Blood,Urine Negative (Negative); Clarity,Urine Clear (Clear); Color,Urine Yellow (Yellow); Glucose,Urine (UA) Normal (Normal); Ketones,Urine Negative (Negative); Leukocyte Esterase,Urine Negative (Negative); Nitrite,Urine Negative (Negative); Protein,Urine Negative (Neg-Trace); Urobilinogen,Urine Normal (Normal)
[2019-07-30 16:12] LABS: Amphetamine Screen,Urine Negative ng/mL (Cutoff=1000); Barbiturate Screen,Urine Negative ng/mL (Cutoff=200); Benzodiazepines Screen,Urine Negative ng/mL (Cutoff=200); Cannabinoid Screen,Urine Negative ng/mL (Cutoff = 50); Cocaine Screen,Urine Negative ng/mL (Cutoff= 300); Opiate Screen,Urine Negative ng/mL (Cutoff=300); Phencyclidine Screen,Urine Negative ng/mL (Cutoff=25)
[2019-07-30 16:19] LABS: Basophils % 0.5 %; Eosinophils # 0.1 K/mcL (0.0-0.6); Eosinophils % 0.9 %; Hematocrit 40.3 % (35.3-44.9); Hemoglobin 13.8 g/dL (11.5-15.4); Immature Granulocytes % 0.3 % (0-4); Lymphocytes # 2.1 K/mcL (0.6-4.6); Lymphocytes % 26.4 %; Mean Corpuscular HGB Conc 34.2 g/dL (31.6-35.5); Mean Corpuscular Hemoglobin 30.3 pg (28.0-33.3); Mean Corpuscular Volume 88.6 fL (83.0-100.0); Mean Platelet Volume 9.4 fL (9.4-12.4); Monocytes # 0.7 K/mcL (0.0-1.3); Monocytes % 8.7 %; Neutrophils # 4.9 K/mcL (1.6-8.9); Platelet Count 323 K/mcL (140-400); Red Blood Count 4.55 M/mcL (3.82-4.97); Segmented Neutrophils % 63.2 %; White Blood Count 7.8 K/mcL (4.3-11.1)
[2019-07-30 16:39] LABS: Acetaminophen < 10 mcg/mL (10-20); BUN/Creatinine Ratio 9 (6-26); Blood Urea Nitrogen 5 mg/dL (6-20); Calcium 9.9 mg/dL (8.6-10.3); Carbon Dioxide 28 mEq/L (23-29); Chloride 91 mEq/L (98-107); Ethanol < 10 mg/dL (Less than 10); Glucose 81 mg/dL (70-105); Osmolality,Calculated 248 (280-300); Potassium 3.8 mEq/L (3.5-5.1); Salicylate < 2.5 mg/dL (15.0-30.0); Sodium 121 mEq/L (136-145); eGFR For African Americans > 60 (> 60); eGFR For Non-African Americans > 60 (> 60)
[2019-07-30] MEDS ORDERED: Mag Hydrox/Al Hydrox/Simeth 30 ML UDC PO PRN (20:01)
[2019-07-30] MEDS ORDERED: MOM Conc 10 ML UD.LIQ PO PRN (20:01)
[2019-07-30] MEDS ORDERED: traZODone 50 MG TABLET PO PRN (20:01)
[2019-07-30] MEDS ORDERED: Haloperidol Lactate 5 MG/ML VIAL IM PRN (20:01)
[2019-07-30] MEDS ORDERED: Ibuprofen 400 MG TABLET PO PRN (20:01)
[2019-07-30] MEDS ORDERED: *HR* LORazepam 1 MG TABLET PO PRN (20:01)
[2019-07-30] MEDS ORDERED: *HR* LORazepam 2 MG/ML VIAL IM PRN (20:01)
[2019-07-31] MEDS: Budesonide/Formoterol 160/4.5 1 PUFF INH IH SCH (21:14)
[2019-07-31] MEDS: Famotidine 20 MG TABLET PO SCH (21:14)
[2019-07-31] MEDS: ARIPiprazole 5 MG TABLET PO SCH (21:14)
[2019-07-31] MEDS: hydrOXYzine pamoate 25 MG CAPSULE PO PRN (21:14)
[2019-08-01] MEDS: FLUoxetine 20 MG CAPSULE PO SCH (09:46)
[2019-08-01] MEDS: Budesonide/Formoterol 160/4.5 1 PUFF INH IH SCH ×2 (09:46→20:57)
[2019-08-01] MEDS: hydrOXYzine pamoate 25 MG CAPSULE PO PRN (20:56)
[2019-08-01] MEDS: Famotidine 20 MG TABLET PO SCH (20:56)
[2019-08-01] MEDS: ARIPiprazole 5 MG TABLET PO SCH (20:56)
[2019-08-02] MEDS: FLUoxetine 20 MG CAPSULE PO SCH (09:10)
[2019-08-02] MEDS: Budesonide/Formoterol 160/4.5 1 PUFF INH IH SCH ×2 (09:52→21:24)
[2019-08-02] MEDS: hydrOXYzine pamoate 25 MG CAPSULE PO PRN ×2 (14:18→21:19)
[2019-08-02] MEDS: Famotidine 20 MG TABLET PO SCH (21:19)
[2019-08-02] MEDS: ARIPiprazole 5 MG TABLET PO SCH (21:19)
[2019-08-03] MEDS: Budesonide/Formoterol 160/4.5 1 PUFF INH IH SCH ×2 (09:40→22:03)
[2019-08-03] MEDS: FLUoxetine 20 MG CAPSULE PO SCH (09:40)
[2019-08-03] MEDS: ARIPiprazole 10 MG TABLET PO SCH (21:45)
[2019-08-03] MEDS: Famotidine 20 MG TABLET PO SCH (21:45)
[2019-08-03] MEDS: hydrOXYzine pamoate 25 MG CAPSULE PO PRN (21:45)
[2019-08-04] MEDS: Budesonide/Formoterol 160/4.5 1 PUFF INH IH SCH (09:34)
[2019-08-04] MEDS: FLUoxetine 20 MG CAPSULE PO SCH (09:34)
[2019-08-04] MEDS: hydrOXYzine pamoate 25 MG CAPSULE PO PRN (21:48)
[2019-08-04] MEDS: Famotidine 20 MG TABLET PO SCH (21:48)
[2019-08-04] MEDS: ARIPiprazole 10 MG TABLET PO SCH (21:48)
[2019-08-05] MEDS: Budesonide/Formoterol 160/4.5 1 PUFF INH IH SCH ×3 (00:21→21:35)
[2019-08-05] MEDS: FLUoxetine 20 MG CAPSULE PO SCH (09:58)
[2019-08-05] MEDS: ARIPiprazole 10 MG TABLET PO SCH (21:35)
[2019-08-05] MEDS: Famotidine 20 MG TABLET PO SCH (21:35)
[2019-08-05] MEDS: hydrOXYzine pamoate 25 MG CAPSULE PO PRN (21:36)
[2019-08-06] MEDS: Budesonide/Formoterol 160/4.5 1 PUFF INH IH SCH ×2 (09:59→21:37)
[2019-08-06] MEDS: FLUoxetine 20 MG CAPSULE PO SCH (09:59)
[2019-08-06] MEDS: ARIPiprazole 10 MG TABLET PO SCH (21:34)
[2019-08-06] MEDS: Famotidine 20 MG TABLET PO SCH (21:34)
[2019-08-06] MEDS: hydrOXYzine pamoate 25 MG CAPSULE PO PRN (21:34)
[2019-08-07] MEDS: Budesonide/Formoterol 160/4.5 1 PUFF INH IH SCH ×2 (09:32→21:55)
[2019-08-07] MEDS: FLUoxetine 20 MG CAPSULE PO SCH (09:32)
[2019-08-07 17:43] LABS: BUN/Creatinine Ratio 24 (6-26); Blood Urea Nitrogen 17 mg/dL (6-20); Calcium 9.3 mg/dL (8.6-10.3); Carbon Dioxide 24 mEq/L (23-29); Chloride 103 mEq/L (98-107); Glucose 161 mg/dL (70-105); Osmolality,Calculated 285 (280-300); Potassium 4.1 mEq/L (3.5-5.1); Sodium 135 mEq/L (136-145); eGFR For African Americans > 60 (> 60); eGFR For Non-African Americans > 60 (> 60)
[2019-08-07] MEDS: ARIPiprazole 10 MG TABLET PO SCH (21:52)
[2019-08-07] MEDS: hydrOXYzine pamoate 25 MG CAPSULE PO PRN (21:52)
[2019-08-07] MEDS: Famotidine 20 MG TABLET PO SCH (21:52)
[2019-08-08] MEDS: FLUoxetine 20 MG CAPSULE PO SCH (09:41)
[2019-08-08] MEDS: Budesonide/Formoterol 160/4.5 1 PUFF INH IH SCH ×2 (09:42→22:00)
[2019-08-08] MEDS: Famotidine 20 MG TABLET PO SCH (21:58)
[2019-08-08] MEDS: hydrOXYzine pamoate 25 MG CAPSULE PO PRN (21:59)
[2019-08-08] MEDS: ARIPiprazole 10 MG TABLET PO SCH (21:59)
[2019-08-09] MEDS: FLUoxetine 20 MG CAPSULE PO SCH (09:02)
[2019-08-09] MEDS: Budesonide/Formoterol 160/4.5 1 PUFF INH IH SCH ×2 (09:03→21:18)
[2019-08-09] MEDS: Famotidine 20 MG TABLET PO SCH (21:17)
[2019-08-09] MEDS: ARIPiprazole 10 MG TABLET PO SCH (21:17)
[2019-08-09] MEDS: hydrOXYzine pamoate 25 MG CAPSULE PO PRN (21:17)
[2019-08-10] MEDS: Budesonide/Formoterol 160/4.5 1 PUFF INH IH SCH (10:20)
[2019-08-10] MEDS: FLUoxetine 20 MG CAPSULE PO SCH (10:20)
[2019-08-10 10:30] VITALS: BP 98/65
== END 2019-08-10 14:10 | disposition home or self-care (01) | DRG 885 ==
LOC: EMEROOARM 15:31 → SUATTDRO 19:11 → 1ANU 19:11
PROVIDERS: ADMIT Psychiatry & Neurology Psychiatry; ATTEND Psychiatry & Neurology Psychiatry

== ENCOUNTER 2022-03-11 16:56 | Observation (INO) ==
[2022-03-11 18:16] LABS: Bilirubin,Urine Negative (Negative); Blood,Urine Negative (Negative); Clarity,Urine Clear (Clear); Color,Urine Colorless (Yellow); Glucose,Urine (UA) Normal (Normal); Ketones,Urine Trace mg/dL (Negative); Leukocyte Esterase,Urine Negative (Negative); Nitrite,Urine Negative (Negative); Protein,Urine Negative (Neg-Trace); Specific Gravity,Urine < 1.005 (1.010-1.025); Urobilinogen,Urine Normal (Normal)
[2022-03-11 18:22] LABS: Basophils % 0.5 %; Eosinophils % 0.6 %; Hematocrit 38.7 % (35.3-44.9); Hemoglobin 13.6 g/dL (11.5-15.4); Immature Granulocytes % 0.2 % (0-4); Lymphocytes # 1.3 K/mcL (0.6-4.6); Lymphocytes % 20.5 %; Mean Corpuscular HGB Conc 35.1 g/dL (31.6-35.5); Mean Corpuscular Hemoglobin 29.5 pg (28.0-33.3); Mean Corpuscular Volume 83.9 fL (83.0-100.0); Mean Platelet Volume 8.6 fL (9.4-12.4); Monocytes # 0.4 K/mcL (0.0-1.3); Monocytes % 6.8 %; Neutrophils # 4.5 K/mcL (1.6-8.9); Platelet Count 340 K/mcL (140-400); Red Blood Count 4.61 M/mcL (3.82-4.97); Red Cell Distribution Width 13.4 % (11.5-14.5); Segmented Neutrophils % 71.4 %; White Blood Count 6.3 K/mcL (4.3-11.1)
[2022-03-11 18:36] LABS: Alanine Aminotransferase 12 Units/L (7-52); Albumin 4.7 g/dL (3.5-5.7); Albumin/Globulin Ratio 1.7 (1.1-2.2); Alkaline Phosphatase 92 Units/L (34-104); Aspartate Amino Transferase 19 Units/L (13-39); BUN/Creatinine Ratio 5 (6-26); Bilirubin,Total 0.4 mg/dL (0.3-1.0); Blood Urea Nitrogen 3 mg/dL (6-20); Calcium 9.3 mg/dL (8.6-10.3); Carbon Dioxide 25 mEq/L (23-29); Chloride 91 mEq/L (98-107); Globulin 2.8 g/dL (2.4-3.5); Glucose 85 mg/dL (70-105); Osmolality,Calculated 252 (280-300); Potassium 3.2 mEq/L (3.5-5.1); Sodium 123 mEq/L (136-145); Total Protein 7.5 g/dL (6.4-8.9); eGFR For African Americans > 60 (> 60); eGFR For Non-African Americans > 60 (> 60)
[2022-03-11] MEDS ORDERED: 0.9 % Sodium Chloride 1,000 ML IV ONE (19:13)
[2022-03-11 20:04] LABS: Bilirubin,Indirect 0.4 mg/dL (0.0-1.0); Magnesium 1.8 mg/dL (1.6-2.6); Phosphorous 2.8 mg/dL (2.7-4.5)
[2022-03-11 20:12] LABS: VBG Ionized Calcium 1.18 mmol/L (1.15-1.35)
[2022-03-11] MEDS ORDERED: Ondansetron ODT 4 MG TAB.RAPDIS SL PRN (20:17)
[2022-03-11] MEDS ORDERED: Melatonin 3 MG TABLET PO PRN (20:17)
[2022-03-11] MEDS ORDERED: Naloxone 0.4 MG/ML INJ IVP PRN (20:17)
[2022-03-11 21:05] LABS: Thyroid Stimulating Hormone 2.533 mcIU/mL (0.340-5.600)
[2022-03-11] MEDS ORDERED: Ipratropium/Albuterol Neb 3 ML IH PRN (21:22)
[2022-03-11] MEDS: Ciprofloxacin/Dex *EAR* Susp 7.5 ML BOTTLE RIGHT EAR SCH (22:51)
[2022-03-11 23:05] LABS: BUN/Creatinine Ratio 4 (6-26); Blood Urea Nitrogen 2 mg/dL (6-20); Calcium 8.7 mg/dL (8.6-10.3); Carbon Dioxide 22 mEq/L (23-29); Chloride 102 mEq/L (98-107); Glucose 109 mg/dL (70-105); Osmolality,Calculated 267 (280-300); Potassium 3.8 mEq/L (3.5-5.1); Sodium 130 mEq/L (136-145); eGFR For African Americans > 60 (> 60); eGFR For Non-African Americans > 60 (> 60)
[2022-03-12 01:37] LABS: Basophils % 0.4 %; Eosinophils # 0.1 K/mcL (0.0-0.6); Eosinophils % 1.5 %; Hematocrit 33.7 % (35.3-44.9); Immature Granulocytes % 0.2 % (0-4); Lymphocytes # 1.8 K/mcL (0.6-4.6); Lymphocytes % 33.9 %; Mean Corpuscular HGB Conc 34.7 g/dL (31.6-35.5); Mean Corpuscular Hemoglobin 29.4 pg (28.0-33.3); Mean Corpuscular Volume 84.7 fL (83.0-100.0); Mean Platelet Volume 8.6 fL (9.4-12.4); Monocytes # 0.6 K/mcL (0.0-1.3); Monocytes % 10.8 %; Neutrophils # 2.8 K/mcL (1.6-8.9); Platelet Count 284 K/mcL (140-400); Red Blood Count 3.98 M/mcL (3.82-4.97); Red Cell Distribution Width 13.5 % (11.5-14.5); Segmented Neutrophils % 53.2 %; White Blood Count 5.2 K/mcL (4.3-11.1)
[2022-03-12 01:57] LABS: BUN/Creatinine Ratio 6 (6-26); Blood Urea Nitrogen 3 mg/dL (6-20); Calcium 8.7 mg/dL (8.6-10.3); Carbon Dioxide 23 mEq/L (23-29); Chloride 106 mEq/L (98-107); Glucose 98 mg/dL (70-105); Osmolality,Calculated 273 (280-300); Potassium 4.2 mEq/L (3.5-5.1); Sodium 133 mEq/L (136-145); eGFR For African Americans > 60 (> 60); eGFR For Non-African Americans > 60 (> 60)
[2022-03-12 02:39] LABS: Hemoglobin 11.7 g/dL (11.5-15.4)
[2022-03-12] MEDS: *HR* Heparin 5,000 UNIT/ML VIAL SQ SCH ×2 (05:42→17:40)
[2022-03-12] MEDS ORDERED: D5% in Water 1,000 ML IVC SCH (07:45)
[2022-03-12] MEDS: FLUoxetine 20 MG CAPSULE PO SCH (08:00)
[2022-03-12] MEDS: hydrOXYzine pamoate 25 MG CAPSULE PO PRN ×2 (08:09→20:02)
[2022-03-12] MEDS: Budesonide/Formoterol 160/4.5 1 PUFF INH IH SCH ×2 (08:11→20:22)
[2022-03-12] MEDS: Ciprofloxacin/Dex *EAR* Susp 7.5 ML BOTTLE RIGHT EAR SCH ×2 (08:12→20:05)
[2022-03-12 08:31] LABS: BUN/Creatinine Ratio 6 (6-26); Blood Urea Nitrogen 3 mg/dL (6-20); Calcium 8.5 mg/dL (8.6-10.3); Carbon Dioxide 21 mEq/L (23-29); Chloride 105 mEq/L (98-107); Glucose 85 mg/dL (70-105); Osmolality,Calculated 270 (280-300); Potassium 4.1 mEq/L (3.5-5.1); Sodium 132 mEq/L (136-145); eGFR For African Americans > 60 (> 60); eGFR For Non-African Americans > 60 (> 60)
[2022-03-12 12:11] LABS: BUN/Creatinine Ratio 6 (6-26); Blood Urea Nitrogen 3 mg/dL (6-20); Calcium 8.5 mg/dL (8.6-10.3); Carbon Dioxide 23 mEq/L (23-29); Chloride 102 mEq/L (98-107); Glucose 95 mg/dL (70-105); Osmolality,Calculated 266 (280-300); Potassium 3.9 mEq/L (3.5-5.1); Sodium 130 mEq/L (136-145); eGFR For African Americans > 60 (> 60); eGFR For Non-African Americans > 60 (> 60)
[2022-03-12] MEDS: Ipratropium/Albuterol Neb 3 ML IH SCH ×3 (15:19→23:41)
[2022-03-12 17:41] LABS: BUN/Creatinine Ratio 9 (6-26); Blood Urea Nitrogen 6 mg/dL (6-20); Calcium 8.6 mg/dL (8.6-10.3); Carbon Dioxide 23 mEq/L (23-29); Chloride 104 mEq/L (98-107); Glucose 85 mg/dL (70-105); Osmolality,Calculated 273 (280-300); Potassium 4.1 mEq/L (3.5-5.1); Sodium 133 mEq/L (136-145); eGFR For African Americans > 60 (> 60); eGFR For Non-African Americans > 60 (> 60)
[2022-03-12] MEDS ORDERED: Lurasidone 20 MG TABLET PO SCH (21:00)
[2022-03-12] MEDS ORDERED: Famotidine 20 MG TABLET PO SCH (21:00)
[2022-03-12 23:15] LABS: BUN/Creatinine Ratio 11 (6-26); Blood Urea Nitrogen 7 mg/dL (6-20); Calcium 8.8 mg/dL (8.6-10.3); Carbon Dioxide 22 mEq/L (23-29); Chloride 102 mEq/L (98-107); Glucose 135 mg/dL (70-105); Osmolality,Calculated 274 (280-300); Potassium 3.6 mEq/L (3.5-5.1); Sodium 132 mEq/L (136-145); eGFR For African Americans > 60 (> 60); eGFR For Non-African Americans > 60 (> 60)
[2022-03-13 01:21] LABS: Hematocrit 33.2 % (35.3-44.9); Hemoglobin 11.3 g/dL (11.5-15.4); Mean Corpuscular Volume 85.1 fL (83.0-100.0); Mean Platelet Volume 8.6 fL (9.4-12.4); Platelet Count 272 K/mcL (140-400); Red Cell Distribution Width 14.1 % (11.5-14.5); White Blood Count 6.6 K/mcL (4.3-11.1)
[2022-03-13 01:40] LABS: BUN/Creatinine Ratio 14 (6-26); Blood Urea Nitrogen 8 mg/dL (6-20); Calcium 8.9 mg/dL (8.6-10.3); Carbon Dioxide 24 mEq/L (23-29); Chloride 103 mEq/L (98-107); Glucose 114 mg/dL (70-105); Magnesium 1.7 mg/dL (1.6-2.6); Osmolality,Calculated 277 (280-300); Potassium 3.4 mEq/L (3.5-5.1); Sodium 134 mEq/L (136-145); eGFR For African Americans > 60 (> 60); eGFR For Non-African Americans > 60 (> 60)
[2022-03-13 02:48] VITALS: PULSE 74
[2022-03-13] MEDS: Ipratropium/Albuterol Neb 3 ML IH SCH ×3 (03:43→09:56)
[2022-03-13] MEDS: *HR* Heparin 5,000 UNIT/ML VIAL SQ SCH (06:02)
[2022-03-13 07:05] VITALS: BP 121/74; TEMP 98
[2022-03-13] MEDS: FLUoxetine 20 MG CAPSULE PO SCH (08:10)
[2022-03-13] MEDS: Ciprofloxacin/Dex *EAR* Susp 7.5 ML BOTTLE RIGHT EAR SCH (08:11)
[2022-03-13 09:48] VITALS: O2SAT 98
[2022-03-13] MEDS: Budesonide/Formoterol 160/4.5 1 PUFF INH IH SCH (09:55)
== END 2022-03-13 10:24 | disposition home or self-care (01) ==
LOC: EMEROOARM 16:56 → 3BNU 16:56 → SUATTDRO 20:00 → 3BNU 20:40
PROVIDERS: ADMIT Internal Medicine; ATTEND Internal Medicine